=== PATIENT | male | born 1955 | race Caucasian/White ===

== ENCOUNTER 2016-08-13 16:03 | Emergency (ER) | payer MEDICARE, MEDICAID ==
[2016-08-13 16:21] VITALS: BP 140/85
[2016-08-13] MEDS ORDERED: levETIRAcetam IV* 250 MG in NS 0.9% 100 ML* 100 ML IVPB ONE (17:06)
[2016-08-13 17:16] LABS: Hematocrit 38 % (42-52); Hemoglobin 12.5 g/dl (14.0-18.0); Mean Corpuscular HGB Conc 33 g/dl (31-36); Mean Corpuscular Hemoglobin 30 pg (27-31); Mean Corpuscular Volume 89 fL (80-94); Mean Platelet Volume 9 um3 (7.4-10.4); Red Blood Count 4.23 10^6/ul (4.0-5.4); Red Cell Distribution Width 14 % (10.5-15); White Blood Count 6.3 10^3/ul (3.5-10.8)
[2016-08-13 17:27] LABS: Albumin 3.6 g/dL (3.2-5.2); BUN/Creatinine Ratio 12.2 (8-20); Calcium 9.2 mg/dL (8.6-10.3); EGFR African American 62.4 (>60); EGFR Non-African American 48.5 (>60); Globulin 2.6 g/dL (2-4); Magnesium 2.2 mg/dL (1.9-2.7); Potassium 4.5 mmol/L (3.5-5.0); Total Bilirubin 0.5 mg/dL (0.2-1.0); Total Protein 6.2 g/dL (6.4-8.9)
--- NOTE | 2016-08-13 22:39 | ED ---
Abimael Chaudhry Adam, scribed for Aleksandr Black MD on 08/13/16 at 1704 . Neurological HPI - HPI Summary HPI Summary: Pt is a 61 year old male presenting with 3 seizures today. He had 2 focal seizures witnessed by his home health aide, lasting approximately 30 seconds each. EMS witnessed a third seizure and report no post-ictal period. Pt states that he temporarily lost his vision immediately following the seizures but has no visual complaints at this time. Pt has a Hx of seizures and states that he has been taking his medication (Topamax and Keppra) as directed. Last seizure prior to today was in February. Pt denies fever, N/V/D, and recent lack of sleep. - History of Current Complaint Chief Complaint: EDSeizure Stated Complaint: SEIZURE Time Seen by Provider: 08/13/16 16:54 Hx Obtained From: Patient Onset/Duration: Sudden Onset, Started hours ago, Resolved Timing: Intermittent Episodes Lasting: - Seconds Onset Severity: Moderate Current Severity: None Seizure Severity: Moderate Number of Seizures: 3 Aggravating: Unknown Alleviating: Spontanious Resolution Associated Signs and Symptoms: Positive: Visual Changes Related Hx: Seizure - Allergy/Home Medications Allergies/Adverse Reactions: Allergies Allergy/AdvReac Type Severity Reaction Status Date / Time No Known Allergies Allergy Verified 10/05/13 12:30 PMH/Surg Hx/FS Hx/Imm Hx Endocrine/Hematology History: Reports: Hx Anticoagulant Therapy Cardiovascular History: Reports: Hx Angina, Hx Coronary Artery Disease, Hx Hypertension Denies: Hx Pacemaker/ICD History: Reports: Other Problems/Disorders - Frequent urination, undiagnosed. Musculoskeletal History: Reports: Other Musculoskeletal History - Left knee surgery. Sensory History: Reports: Hx Contacts or Glasses Denies: Hx Hearing Aid Opthamlomology History: Reports: Hx Contacts or Glasses Neurological History: Reports: Hx Seizures Psychiatric History: Reports: Hx Depression, Hx Suicide Attempt Denies: Hx Panic Disorder - Surgical History Surgery Procedure, Year, and Place: LEFT ACL REPAIR Infectious Disease History: No Infectious Disease History: Denies: Hx Clostridium Difficile, Hx Hepatitis, Hx Human Immunodeficiency Virus (HIV), Hx of Known/Suspected MRSA, Hx Shingles, Hx Tuberculosis, Hx Known/ Suspected VRE, Hx Known/Suspected VRSA, History Other Infectious Disease, Traveled Outside the [place] in Last 30 Days - Family History Known Family History: Positive: Unknown - Per pt - Social History Occupation: Disabled Lives: With Family Alcohol Use: None Hx Substance Use: No Substance Use Type: Reports: None Hx Tobacco Use: No Smoking Status (MU): Never Smoked Tobacco Have You Smoked in the Last Year: No Review of Systems Positive: Other - Temporary loss of vision after seizures Neurological: Other - Seizures All Other Systems Reviewed And Are Negative: Yes Physical Exam - Summary Physical Exam Summary: General: Comfortable, pleasant, alert HEENT: Moist mucosa, VIOLETA, EOMI. Neck: soft, supple, no adenopathy, no edema Heart: S1, S2, RRR, no murmurs, rubs, or gallops Lungs: Clear to auscultation, breathing comfortable, no wheezes or rales Abdominal: Soft, flat, nontender Extremities: No edema, no calf tenderness Neuro: Disoriented to date but his states that this is his baseline. No slurred speech. No neglect. CN 3-12 intact. Negative pronator drift in all four extremities. Psych: Logical, coherent Triage Information Reviewed: Yes Vital Signs On Initial Exam: Initial Vitals Temp Pulse Resp BP Pulse Ox 97.6 F 56 20 140/85 97 08/13/16 16:15 08/13/16 16:15 08/13/16 16:15 08/13/16 16:15 08/13/16 16:15 Vital Signs Reviewed: Yes Diagnostics - Vital Signs Vital Signs Temp Pulse Resp BP Pulse Ox 08/13/16 16:15 97.6 F 56 20 140/85 97 - Laboratory Lab Results: Lab Results 08/13/16 08/13/16 08/13/16 Range/Units 17:00 17:00 17:00 WBC 6.3 (3.5-10.8) 10^3/ul RBC 4.23 (4.0-5.4) 10^6/ul Hgb 12.5 L (14.0-18.0) g/dl Hct 38 L (42-52) % MCV 89 (80-94) fL MCH 30 (27-31) pg MCHC 33 (31-36) g/dl RDW 14 (10.5-15) % Plt Count 158 (150-450) 10^3/ul MPV 9 (7.4-10.4) um3 Neut % (Auto) 46.8 (38-83) % Lymph % (Auto) 38.3 (25-47) % [place] % (Auto) 11.1 H (1-9) % Eos % (Auto) 3.7 (0-6) % Baso % (Auto) 0.1 (0-2) % Absolute Neuts (auto) 2.9 (1.5-7.7) 10^3/ul Absolute Lymphs (auto) 2.4 (1.0-4.8) 10^3/ul Absolute Monos (auto) 0.7 (0-0.8) 10^3/ul Absolute Eos (auto) 0.2 (0-0.6) 10^3/ul Absolute Basos (auto) 0 (0-0.2) 10^3/ul Absolute Nucleated RBC 0.01 10^3/ul Nucleated RBC % 0.1 Sodium 140 (133-145) mmol/L Potassium 4.5 (3.5-5.0) mmol/L Chloride 112 H (101-111) mmol/L Carbon Dioxide 25 (22-32) mmol/L Anion Gap 3 (2-11) mmol/L BUN 18 (6-24) mg/dL Creatinine 1.48 H (0.67-1.17) mg/dL Est GFR ( Amer) 62.4 (>60) Est GFR (Non-Af Amer) 48.5 (>60) BUN/Creatinine Ratio 12.2 (8-20) Glucose 96 (70-100) mg/dL Lactic Acid 0.7 (0.5-2.0) mmol/L Calcium 9.2 (8.6-10.3) mg/dL Magnesium 2.2 (1.9-2.7) mg/dL Total Bilirubin 0.50 (0.2-1.0) mg/dL AST 12 L (13-39) U/L ALT 9 (7-52) U/L Alkaline Phosphatase 68 (34-104) U/L Total Protein 6.2 L (6.4-8.9) g/dL Albumin 3.6 (3.2-5.2) g/dL Globulin 2.6 (2-4) g/dL Albumin/Globulin Ratio 1.4 (1-3) Result Diagrams: 08/13/16 17:00 08/13/16 17:00 Lab Statement: Any lab studies that have been ordered have been reviewed, and results considered in the medical decision making process. Course/Dx - Course Assessment/Plan: Longstanding Hx of seizures, compliant with medications, followed by [facility]. No obvious reason for this to be triggered as there are no signs of sepsis or severe infection. He is doing well now. his work -up is totally benign for electrolyte abnormalities or sepsis. We will have him increase his Keppra dosage to 750 2x a day. - Diagnoses Provider Diagnoses: Seizure Discharge - Discharge Plan Condition: Good Disposition: HOME Patient Education Materials: Epilepsy (ED) Referrals: Luigi Pillai MD [Primary Care Provider] - Additional Instructions: follow up with your neurologist at the [facility] tomorrow. The documentation as recorded by the Abimael heart Adam accurately reflects the service I personally performed and the decisions made by , Aleksandr Black MD.
== END 2016-08-13 18:36 | disposition home or self-care (01) ==
LOC: ED 16:03
DX: R56.9 Unspecified convulsions (principal); Z79.01 Long term (current) use of anticoagulants
CPT/HCPCS: 36415; 80053; 80177; 83605; 83735; 85025; 99282

== ENCOUNTER 2016-08-15 13:30 | Emergency (ER) | payer MEDICARE, MEDICAID ==
[2016-08-15 13:50] LABS: Hematocrit 39 % (42-52); Hemoglobin 12.9 g/dl (14.0-18.0); Mean Corpuscular HGB Conc 33 g/dl (31-36); Mean Corpuscular Hemoglobin 29 pg (27-31); Mean Corpuscular Volume 89 fL (80-94); Mean Platelet Volume 8 um3 (7.4-10.4); Red Blood Count 4.39 10^6/ul (4.0-5.4); Red Cell Distribution Width 13 % (10.5-15); White Blood Count 6.2 10^3/ul (3.5-10.8)
--- NOTE | 2016-08-15 13:52 | RAD ---
INDICATION: Neurologic changes, code marsh. COMPARISON: Comparison is made with a prior CT of the brain from October 05, 2013. TECHNIQUE: Contiguous axial sections of the brain were obtained from the skull base to the vertex without contrast. FINDINGS: The ventricles, cisterns and sulci are enlarged consistent with age-related atrophy. There are old lacunar infarcts present in the right periventricular white matter and lentiform nucleus. There is also an old lacunar infarct within the thalamus on the left side. These are unchanged from the prior exam. In addition there are multiple focal areas of decreased attenuation present in the subcortical and periventricular white matter most consistent with chronic small vessel ischemic changes. No other focal abnormality or mass effect is seen. There is no evidence for hemorrhage. No significant focal osseous abnormality is seen. The visualized portion of the paranasal sinuses and mastoid air cells appear clear. The results of this exam were called to the referring clinician at 1341 hours. IMPRESSION: 1. NO EVIDENCE FOR GROSS ACUTE INFARCT, MASS EFFECT OR HEMORRHAGE. 2. MULTIPLE OLD LACUNAR INFARCTS AND FINDINGS MOST CONSISTENT WITH MODERATE CHRONIC SMALL VESSEL ISCHEMIC CHANGES.
[2016-08-15 14:04] LABS: Albumin 3.6 g/dL (3.2-5.2); BUN/Creatinine Ratio 15.9 (8-20); EGFR African American 60.9 (>60); EGFR Non-African American 47.4 (>60); Globulin 2.7 g/dL (2-4); HDL Cholesterol 35.4 mg/dL; Potassium 4.5 mmol/L (3.5-5.0); Total Bilirubin 0.6 mg/dL (0.2-1.0); Total Protein 6.3 g/dL (6.4-8.9)
[2016-08-15 14:06] LABS: Troponin I 0.01 ng/mL (<0.04)
--- NOTE | 2016-08-15 14:37 | RAD ---
INDICATION: Code marsh. COMPARISON: Comparison is made with a prior chest x-ray study from November 22, 2013. TECHNIQUE: A portable view of the chest was obtained. FINDINGS: Cardiac and mediastinal contours appear to be within normal limits. The lungs are clear. No pleural effusion is seen. IMPRESSION: NO EVIDENCE FOR ACUTE DISEASE.
[2016-08-15 17:01] VITALS: BP 120/72
--- NOTE | 2016-08-15 20:27 | ED ---
Douglas Chaudhry Rebecca, scribed for Aleksandr Black MD on 08/15/16 at 1340 . Neurological HPI - HPI Summary HPI Summary: Pt is a 61 y/o M BIBA to r/o CVA. Per EMS, pt's family reported R-sided weakness , slurred speech and facial droop. Sx began suddenly at 1245 today and have been constant since onset. Sx aggravated and alleviated by nothing. Level 5 caveat due to AMS. Past medical records reveal admission in July 2013. PMHx seizures, CVA. At one point was seeing Dr. Estrella and was on Plavix for secondary prevention. Hx mentions hemorrhagic stroke, and R-sided weakness and received TPA in Aug 2010. - History of Current Complaint Stated Complaint: CODE WATKINS Time Seen by Provider: 08/15/16 13:31 Hx Obtained From: EMS, Medical Records Hx From Patient Unobtainable Due To: Altered Mental Status Onset/Duration: Sudden Onset, Started minutes ago - 45 minutes ago Timing: Constant Aggravating: Nothing Alleviating: Nothing Associated Signs and Symptoms: Positive: Weakness - R-sided weakness, facial droop, Impaired Speech - Allergy/Home Medications Allergies/Adverse Reactions: Allergies Allergy/AdvReac Type Severity Reaction Status Date / Time No Known Allergies Allergy Verified 10/05/13 12:30 Home Medications: Home Medications Atorvastatin* [Lipitor*] 20 mg PO BID 08/15/16 [History Confirmed 08/15/16] DULoxetine DR CAP* [Cymbalta CAP*] 20 mg PO DAILY 08/15/16 [History Confirmed ] Gabapentin CAP(*) [Neurontin 100 mg CAP(*)] 100 mg PO SEE INSTRUCTIONS 08/15/16 [History Confirmed 08/15/16] Levetiracetam [Keppra 500] 1,000 mg PO BID 08/15/16 [History Confirmed 08/15/16] PMH/Surg Hx/FS Hx/Imm Hx Endocrine/Hematology History: Reports: Hx Anticoagulant Therapy Cardiovascular History: Reports: Hx Angina, Hx Coronary Artery Disease, Hx Hypertension Denies: Hx Pacemaker/ICD History: Reports: Other Problems/Disorders - Frequent urination, undiagnosed. Musculoskeletal History: Reports: Other Musculoskeletal History - Left knee surgery. Sensory History: Reports: Hx Contacts or Glasses Denies: Hx Hearing Aid Opthamlomology History: Reports: Hx Contacts or Glasses Neurological History: Reports: Hx Seizures Psychiatric History: Reports: Hx Depression, Hx Suicide Attempt Denies: Hx Panic Disorder - Surgical History Surgery Procedure, Year, and Place: LEFT ACL REPAIR Infectious Disease History: Denies: Hx Clostridium Difficile, Hx Hepatitis, Hx Human Immunodeficiency Virus (HIV), Hx of Known/Suspected MRSA, Hx Shingles, Hx Tuberculosis, Hx Known/ Suspected VRE, Hx Known/Suspected VRSA, History Other Infectious Disease - Family History Known Family History: Positive: Unknown - Unobtainable from pt - Social History Alcohol Use: None Hx Substance Use: No Substance Use Type: Reports: None Hx Tobacco Use: No Smoking Status (MU): Never Smoked Tobacco Have You Smoked in the Last Year: No Review of Systems - ROS Summary Review of Systems Summary: Level 5 caveat, ROS unobtainable due to AMS. Neurological: Other - Facial droop Positive: Weakness - R-sided, Slurred Speech All Other Systems Reviewed And Are Negative: No Physical Exam - Summary Physical Exam Summary: General: Comfortable, pleasant, alert HEENT: PERRL, R-eyelid droop, R-facial droop. No signs of trauma or abrasion. Brisk intact gag reflex. Neck: Soft, supple, no adenopathy, no edema Heart: No murmurs, rubs, or gallops, distant heart sounds Lungs: Clear to auscultation, breathing comfortable, no wheezes or rales, no gargled respirations Abdominal: Soft, flat, nontender Extremities: No edema, no calf tenderness Neuro: R-sided neglect, with smile he is slow to repond, but shows more strength on the left. Right upper and lower pronator drift. Sensation loss on the R side.Loss of pinprick on the right. Psych: Mentation is slow to respond, remains alert Triage Information Reviewed: Yes Vital Signs On Initial Exam: Initial Vitals Temp Pulse Resp BP Pulse Ox 99.1 F 52 10 144/77 97 08/15/16 13:50 08/15/16 13:50 08/15/16 13:50 08/15/16 13:50 08/15/16 13:50 Vital Signs Reviewed: Yes Diagnostics - Vital Signs Vital Signs Temp Pulse Resp BP Pulse Ox 08/15/16 17:00 57 15 120/72 08/15/16 16:42 56 15 120/74 99 08/15/16 16:30 55 19 145/77 99 08/15/16 16:00 59 14 133/81 99 08/15/16 15:30 57 15 129/77 100 08/15/16 15:00 52 11 136/78 99 08/15/16 14:35 51 10 139/82 99 08/15/16 14:06 51 8 98 08/15/16 13:50 99.1 F 52 10 144/77 97 - Laboratory Lab Results: Lab Results 08/15/16 08/15/16 08/15/16 Range/Units 13:40 13:40 13:40 WBC 6.2 (3.5-10.8) 10^3/ul RBC 4.39 (4.0-5.4) 10^6/ul Hgb 12.9 L (14.0-18.0) g/dl Hct 39 L (42-52) % MCV 89 (80-94) fL MCH 29 (27-31) pg MCHC 33 (31-36) g/dl RDW 13 (10.5-15) % Plt Count 146 L (150-450) 10^3/ul MPV 8 (7.4-10.4) um3 Neut % (Auto) 48.5 (38-83) % Lymph % (Auto) 34.5 (25-47) % Cameron % (Auto) 9.5 H (1-9) % Eos % (Auto) 6.1 H (0-6) % Baso % (Auto) 1.4 (0-2) % Absolute Neuts (auto) 3.0 (1.5-7.7) 10^3/ul Absolute Lymphs (auto) 2.1 (1.0-4.8) 10^3/ul Absolute Monos (auto) 0.6 (0-0.8) 10^3/ul Absolute Eos (auto) 0.4 (0-0.6) 10^3/ul Absolute Basos (auto) 0.1 (0-0.2) 10^3/ul Absolute Nucleated RBC 0 10^3/ul Nucleated RBC % 0 INR (Anticoag Therapy) 0.92 (0.89-1.11) APTT 32.0 (26.0-36.3) seconds Sodium 139 (133-145) mmol/L Potassium 4.5 (3.5-5.0) mmol/L Chloride 111 (101-111) mmol/L Carbon Dioxide 25 (22-32) mmol/L Anion Gap 3 (2-11) mmol/L BUN 24 (6-24) mg/dL Creatinine 1.51 H (0.67-1.17) mg/dL Est GFR ( Amer) 60.9 (>60) Est GFR (Non-Af Amer) 47.4 (>60) BUN/Creatinine Ratio 15.9 (8-20) Glucose 95 (70-100) mg/dL Lactic Acid (0.5-2.0) mmol/L Calcium 9.0 (8.6-10.3) mg/dL Total Bilirubin 0.60 (0.2-1.0) mg/dL AST 14 (13-39) U/L ALT 11 (7-52) U/L Alkaline Phosphatase 67 (34-104) U/L Troponin I 0.01 (<0.04) ng/mL Total Protein 6.3 L (6.4-8.9) g/dL Albumin 3.6 (3.2-5.2) g/dL Globulin 2.7 (2-4) g/dL Albumin/Globulin Ratio 1.3 (1-3) Triglycerides 71 mg/dL Cholesterol 125 mg/dL LDL Cholesterol 75 mg/dL HDL Cholesterol 35.4 mg/dL Blood Type Antibody Screen 08/15/16 08/15/16 Range/Units 13:40 13:40 WBC (3.5-10.8) 10^3/ul RBC (4.0-5.4) 10^6/ul Hgb (14.0-18.0) g/dl Hct (42-52) % MCV (80-94) fL MCH (27-31) pg MCHC (31-36) g/dl RDW (10.5-15) % Plt Count (150-450) 10^3/ul MPV (7.4-10.4) um3 Neut % (Auto) (38-83) % Lymph % (Auto) (25-47) % Cameron % (Auto) (1-9) % Eos % (Auto) (0-6) % Baso % (Auto) (0-2) % Absolute Neuts (auto) (1.5-7.7) 10^3/ul Absolute Lymphs (auto) (1.0-4.8) 10^3/ul Absolute Monos (auto) (0-0.8) 10^3/ul Absolute Eos (auto) (0-0.6) 10^3/ul Absolute Basos (auto) (0-0.2) 10^3/ul Absolute Nucleated RBC 10^3/ul Nucleated RBC % INR (Anticoag Therapy) (0.89-1.11) APTT (26.0-36.3) seconds Sodium (133-145) mmol/L Potassium (3.5-5.0) mmol/L Chloride (101-111) mmol/L Carbon Dioxide (22-32) mmol/L Anion Gap (2-11) mmol/L BUN (6-24) mg/dL Creatinine (0.67-1.17) mg/dL Est GFR ( Amer) (>60) Est GFR (Non-Af Amer) (>60) BUN/Creatinine Ratio (8-20) Glucose (70-100) mg/dL Lactic Acid 0.6 (0.5-2.0) mmol/L Calcium (8.6-10.3) mg/dL Total Bilirubin (0.2-1.0) mg/dL AST (13-39) U/L ALT (7-52) U/L Alkaline Phosphatase (34-104) U/L Troponin I (<0.04) ng/mL Total Protein (6.4-8.9) g/dL Albumin (3.2-5.2) g/dL Globulin (2-4) g/dL Albumin/Globulin Ratio (1-3) Triglycerides mg/dL Cholesterol mg/dL LDL Cholesterol mg/dL HDL Cholesterol mg/dL Blood Type O Positive Antibody Screen Negative Result Diagrams: 08/15/16 13:40 08/15/16 13:40 Lab Statement: Any lab studies that have been ordered have been reviewed, and results considered in the medical decision making process. - Radiology CXR Radiology Interpretation Completed By: Radiologist - NO EVIDENCE FOR ACUTE DISEASE - CT Brain CT CT Interpretation Completed By: Radiologist - EKG 1350 Cardiac Rate: Bradycardia - [address] Segment: Non-Specific - T-wave inversions in III Re-Evaluation - Re-Evaluation First Eval Re-Evaluation Time: 16:32 Change: Improved Comment: Much more alert, states he is feeling better. On exam, pronator drift is markedly improved and only slightly present at this point. He is able to puff out his cheeks symetrically. Family reports that Dr. Abraham recommended to lower Keppra dose (currently on 1500 mg per day) and increase Topamax doseage. Course/Dx - Course Assessment/Plan: After a long workup and a long discussion with family and Dr. Abraham this is a similar presentation to prior episodes. According to Dr. Abraham, who spoke to his , the sx were preceded by another seizure. The family and Dr. Abraham apparently wanted to fine tune his medications. Agrees to return for any worsening sx, recurrent episodes. Otherwise, will followup with PCP and neurology at the [facility]. - Differential Dx Differential Diagnoses Neuro: Positive: Coronary Artery Disease, Dysrhythmia, Encephalitis, Headache, Hemorrhage, Hypertension, Hypoglycemia, Hypovolemia, Medication Reaction, Meningitis, Metastatic Disease, Seizure Disorder, Temporal Arteritis, Transient Ischemic Attack - Diagnoses Provider Diagnoses: Transient right leg weakness, Neurological deficit, transient During the Visit The Following Alert/Code Occurred: Code Cox - Physician Notifications Discussed Care of Patient With: Dr. Abraham, neurology, who evaluated at bedside in ED. Debating whether or not TPA can be given. Dr. Abraham has review old records extensively for the past hour and has also spoken to and believes there is a good chance this was a seizure that has resulted in some R-sided deficits. Reveals some of these deficits are chronically presents. At this point will not push TPA. Will d/c pt if he completely resolves. Consistent with prior presentations found. Time Discussed With Above Provider: 13:50 Discharge - Discharge Plan Condition: Fair Disposition: HOME Patient Education Materials: Weakness (ED) Referrals: Luigi Pillai MD [Primary Care Provider] - Additional Instructions: Change the keppra to 500mg twice a day for a total of 1000mg and increase the topomax to two pills twice a day. The documentation as recorded by the Douglas heart Rebecca accurately reflects the service I personally performed and the decisions made by me, Aleksandr Black MD.
--- NOTE | 2016-08-15 20:52 | CONS ---
NEUROLOGY CONSULT: DATE OF CONSULTATION: 08/15/16 REFERRING PHYSICIAN: Dr. Black. PRIMARY CARE PROVIDER: Dr. Pillai of [facility]. CHIEF COMPLAINT: Right-sided weakness, seizures. HISTORY OF PRESENT ILLNESS: Dandy Fay is a 61-year-old right-handed man known to me from prior evaluations in past years who presented to the emergency department initially as a [employer] with the bingo attendant's report that he developed right-sided weakness at 12:45 this morning. I just happened to speak with his after serial examinations and review of extensive medical records and she reports he had a seizure at onset. She stated he was upset because he was being teased by a nephew who was visiting. He then had one of his seizures, which consisted of eyelid deviation or fluttering and tremulousness and unresponsiveness. She said after about 3 minutes he came out of it and was able to speak and had weakness on his right side. In reviewing prior records, he has had multiple episodes of right-sided weakness, at times felt to be psychogenic. In 2010, he presented with right-sided weakness and I gave him tPA. 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 He has "seizures" with normal EEGs done here in [place] and reports from Dr. Syl Estrella's consultation a couple of years ago and Dr. 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 His reports he has been under a lot of stress lately and has an appointment to see a psychiatrist at the [place] system later this month. He has been threatening and irritable to her in recent weeks, if not months. He was hospitalized in [facility] last February by her report in mental health unit and put on Keppra because of repetitive seizures. Between last February and last week when he presented to the emergency room with another one of his seizures, he has not had seizures but they started up again. She is not aware of diagnoses of psychogenic versus epilepsy, but does recall that he was monitored in [facility] some years ago. She said she does not know what the results were. 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 MEDICATIONS AT HOME: Consist of: 1. Venlafaxine, dose unknown. 2. Trazodone 50 mg p.o. q.h.s. 3. Topiramate 150 mg p.o. b.i.d. 4. Simvastatin 40 mg p.o. daily. 5. Lisinopril 10 mg p.o. daily. 6. Plavix 75 mg p.o. daily. 7. Atenolol 12.5 mg p.o. daily. 8. Hydrocodone 5/500 two tablets q.6 hours p.r.n. ALLERGIES: He is listed as having no drug allergies. SOCIAL HISTORY: He is a nonsmoker, nondrinker, disabled [place] vet. No history of drug abuse. REVIEW OF SYSTEMS: From his and the patient is negative for headache, he had a fall a week ago without loss of consciousness. He is chronically unsteady , but ambulates with a cane at home. Again, it is noted in the HPI he has been more irritable lately. As far as she knows, there has been no change in weight. No recent fevers or chills. She states he gets his medications very regularly if she gives them to him. PHYSICAL EXAMINATION: He is morbidly obese. Temperature is 99.1 temporally, blood pressure 144/77, heart rate 50 to 60 and sinus on the monitor. Respiratory rate is 12 to 14 and oxygen saturation is 97% on room air. Neck is supple. Head is atraumatic. Oral mucosa is moist and atraumatic. Neck is thick and I cannot feel carotid pulses. There are no cervical bruits. Heart tones are normal and lungs are clear anterolaterally. Neurologically, pupils react equally from 3 to 2 mm. Visual babb are full to confrontation. Funduscopic exam reveals silver wiring and AV nicking but no hemorrhages. Eye movements are normal. Facial musculature is notable for decreased movement of the right corner of mouth. Volitional movement is pretty strong. Facial sensation is reported as decreased to light touch on the right side. Speech is soft, but clear. Tongue protrudes in the midline and palate rises symmetrically. Hearing is intact bilaterally to tuning fork. Motor exam is inconsistent. At times he does not raise the right arm and leg up to command and at other times he moves it reasonably well such as when I put his oximeter back on his hand. He has resistive strength variably of the right leg and arm, but again it is inconsistent. He has slow movements on the left side, but good strength and no spasticity on any limbs. Reflexes are hypoactive. Plantars are flexor bilaterally. Finger taps are slow bilaterally, but he is able to do them in the right hand as well as the left. He is mentally sluggish but answers questions reasonably well. Language is quite fluent. He is oriented to person, place and time. He does not remember the onset of his symptoms but remembers getting out of bed and he said he felt fine earlier today as best as he can recall. LABORATORY DATA: Includes the CT of the brain which I reviewed and reveals old bilateral lenticulostriate infarctions. A brain MRI from 08/07/13 reviewed and reveals an acute right lenticulostriate and old left basal ganglia infarction. EEG from 08/07/[address] Estrella was a normal EEG including during episodes of left-sided shaking and kicking. Additional laboratory data notable for a normal CBC today other than hemoglobin 12.9 and platelets 146,000, normal INR 0.92 and PTT 32, chemistry profile notable for creatinine 1.5 and otherwise unremarkable chemistry profile. IMPRESSION: My impression is this is probably this is psychogenic, possibly postictal, but I do not think he is having an acute cerebrovascular event and do not recommend tPA. If he does not improve along the lines of a postictal episode, then we may have to bring him in and do some EEG monitoring. Hopefully , with encouragement he will resolve as he has with prior episodes and will be able to be discharged home today. [id number]/[facility] #: [id number] DANA
== END 2016-08-15 17:00 | disposition home or self-care (01) ==
LOC: ED 13:30
DX: R29.818 Other symptoms and signs involving the nervous system (principal); R56.9 Unspecified convulsions; R53.1 Weakness; R41.82 Altered mental status, unspecified; R47.81 Slurred speech
CPT/HCPCS: 36415; 70450; 71010; 80053; 80061; 83605; 84484; 85025; 85610; 85730; 86850; 86900; 86901; 93005; 99285

== ENCOUNTER 2016-09-02 09:49 | Inpatient (IN) | payer MEDICARE, MEDICAID ==
--- NOTE | 2016-09-02 10:11 | RAD ---
Indication: Neurologic changes. CT of the brain was performed without IV contrast. Ventricular structures are midline. No midline shift is noted. Periventricular lucency consistent with chronic ischemic White matter change is noted. There is a wedge-shaped hypodensity in the left posterior parietal lobe. May represent a recent infarct. No midline shift is noted. No intracranial hemorrhage is identified. Mastoid air cells and a straight hypoplastic left mastoid air cells. The remainder of the paranasal sinuses are unremarkable. IMPRESSION: Developing infarct in the left posterior parietal lobe. No hemorrhage is noted. Findings discussed with Dr. Armenta at 10:08 AM.
[2016-09-02 10:23] LABS: Hematocrit 37 % (42-52); Hemoglobin 12.2 g/dl (14.0-18.0); Mean Corpuscular HGB Conc 34 g/dl (31-36); Mean Corpuscular Hemoglobin 30 pg (27-31); Mean Corpuscular Volume 90 fL (80-94); Mean Platelet Volume 9 um3 (7.4-10.4); Red Blood Count 4.07 10^6/ul (4.0-5.4); Red Cell Distribution Width 14 % (10.5-15); White Blood Count 7.2 10^3/ul (3.5-10.8)
--- NOTE | 2016-09-02 10:27 | RAD ---
INDICATION: Altered mental status COMPARISON: Chest x-ray August 15, 2016 TECHNIQUE: Single AP portable view of the chest was obtained. FINDINGS: Image quality is compromised due to the relative inferiority of a portable chest x-ray. The heart and mediastinum exhibit normal size and contour. There appears to be poor inspiratory effort relative to the previous chest x-ray. The lungs are grossly clear. There is no evidence of a large pleural effusion. Visualized bones are normal for the patient's age. IMPRESSION: No radiographic evidence for acute cardiopulmonary abnormality on this portable chest x-ray.
[2016-09-02 10:51] LABS: Albumin 3.6 g/dL (3.2-5.2); BUN/Creatinine Ratio 11.4 (8-20); EGFR African American 54.2 (>60); EGFR Non-African American 42.2 (>60); Globulin 2.6 g/dL (2-4); HDL Cholesterol 35.1 mg/dL; Potassium 4.5 mmol/L (3.5-5.0); Total Bilirubin 0.6 mg/dL (0.2-1.0); Total Protein 6.2 g/dL (6.4-8.9)
[2016-09-02] MEDS ORDERED: Meclizine TAB* 12.5 MG PO PRN (13:58)
[2016-09-02] MEDS ORDERED: Senna/Docusate (NF) TAB PO PRN (13:58)
[2016-09-02] MEDS ORDERED: Senna TAB PO PRN (14:07)
[2016-09-02] MEDS ORDERED: Docusate CAP* 100 MG PO PRN (14:07)
[2016-09-02 14:57] LABS: Urine Bilirubin Negative (Negative); Urine Glucose Negative (Negative); Urine Nitrite Negative (Negative)
--- NOTE | 2016-09-02 14:58 | RAD ---
HISTORY: Stroke COMPARISONS: August 06, 2013 TECHNIQUE: Multiple transverse and longitudinal ultrasound images were obtained of the carotid and vertebral arteries bilaterally, using grayscale, color Doppler, and spectral Doppler imaging. FINDINGS: Measurement of carotid stenosis is based on flow velocity parameters that correlate the residual internal carotid artery diameter with [place] Symptomatic Carotid Endarterectomy Trial (NASCET)-based stenosis levels. RIGHT: Intima: There is mild diffuse intimal thickening. Velocities: Right internal carotid artery maximum peak systolic velocity: 68 cm/s Right common carotid artery maximum peak systolic velocity: 95 cm/s Right internal carotid artery/common carotid artery ratio: 0.7 Waveforms: There is no spectral broadening. Right Vertebral: The right vertebral artery flow is antegrade. LEFT: Intima: There is mild diffuse intimal thickening. Velocities: Left internal carotid artery maximum peak systolic velocity: 94 cm/s Left common carotid artery maximum peak systolic velocity: 88 cm/s Left internal carotid artery/common carotid artery ratio: 0.6 Waveforms: There is no spectral broadening. Left Vertebral: The left vertebral artery flow is antegrade. OTHER FINDINGS: There is a heterogeneously hypoechoic lymph node at level 2 on the right measuring 1.4 x 1.1 x 2.1 cm in size IMPRESSION: 1. NO HEMODYNAMICALLY SIGNIFICANT STENOSIS OF THE RIGHT INTERNAL CAROTID ARTERY BY FLOW VELOCITY MEASUREMENTS. THIS CORRESPONDS TO A LUMINAL DIAMETER OF LESS THAN 50% STENOSIS BY NASCET CRITERIA. 2. NO HEMODYNAMICALLY SIGNIFICANT STENOSIS OF THE LEFT INTERNAL CAROTID ARTERY BY FLOW VELOCITY MEASUREMENTS. THIS CORRESPONDS TO A LUMINAL DIAMETER OF LESS THAN 50% STENOSIS BY NASCET CRITERIA. 3. RIGHT CERVICAL LYMPHADENOPATHY. RECOMMEND CORRELATION WITH DEDICATED IMAGING OF THE NECK CPT II Codes: 7025F
--- NOTE | 2016-09-02 16:19 | RAD ---
HISTORY: Stroke COMPARISONS: Head CT dated September 02, 2016, MRI dated August 07, 2013 TECHNIQUE: The following sequences were obtained of the head: Sagittal T1-weighted images, axial T2-weighted images, axial FLAIR images, axial susceptibility weighted images, axial T1-weighted images. Additionally, axial diffusion-weighted images were obtained with calculated apparent diffusion coefficients. FINDINGS: HEMORRHAGE/INFARCT: There is restricted diffusion consistent with subacute nonhemorrhagic infarct involving the left posterior temporal lobe and inferior parietal lobe and posterior insula. This corresponds to the CT findings. There is no hemorrhage. Elsewhere, there is no hemorrhage or acute infarct. MASSES/SHIFT: There is no mass or shift. EXTRA-AXIAL SPACES/MENINGES: There are no extra-axial fluid collections. SULCI AND VENTRICLES: The sulci and ventricles are normal in size and position for the patient's stated age. CEREBRUM: As noted above, there is elevated T2/FLAIR signal corresponding to an area of restricted diffusion and subacute nonhemorrhagic infarct of the left posterior temporal lobe and anterior parietal lobe, and insula. There is encephalomalacia consistent with remote infarct of the right basal ganglia, and of the left frontal periventricular white matter, and left periatrial white matter. There is elevated T2/FLAIR signal in the periventricular and subcortical white matter. BRAINSTEM: There is minimal elevated T2/FLAIR signal within the pontine white matter. CEREBELLUM: There are no focal parenchymal abnormalities. The cerebellar tonsils are normal in size and position. SELLA: The sella is normal. PINEAL: The pineal region is clear. CP ANGLE/TEMPORAL BONES: The labyrinthine structures are grossly normal. VESSELS: Normal flow-voids are noted within the visualized vertebral vasculature. DIFFUSION ABNORMALITIES: As noted above, there is restricted diffusion within the left inferior parietal lobe, posterior temporal lobe, and posterior insula PARANASAL SINUSES/MASTOIDS: The paranasal sinuses are clear. ORBITS: The orbits are unremarkable. BONES AND SOFT TISSUE: No bone or soft tissue abnormalities are noted. OTHER: None IMPRESSION: 1. RESTRICTED DIFFUSION CONSISTENT WITH SUBACUTE NONHEMORRHAGIC INFARCT OF THE LEFT POSTERIOR TEMPORAL LOBE, INFERIOR PARIETAL LOBE, AND POSTERIOR INSULA. 2. DIFFUSE CHRONIC SMALL VESSEL ISCHEMIC CHANGES WITH MULTIFOCAL ENCEPHALOMALACIA OF THE CEREBRAL HEMISPHERES BILATERALLY CONSISTENT WITH REMOTE INFARCTS.
--- NOTE | 2016-09-02 17:24 | PN ---
Hospitalist Progress Note HOSPITALIST ADDENDUM Case reviewed and d/w Sacha BLISS. Mr. Fay is a 70yo M with PMH of CVA, depression, seizures, HTN, who presented to ED with c/o confusion, speech changes and possible worsening right hemiparesis. CT brain reviewed - patient has a developing CVA on the left parietal lobe. Agree with current management. Awaiting Neurology consultation.
[2016-09-02] MEDS: Atorvastatin* 40 MG TAB PO SCH (17:44)
[2016-09-02] MEDS: Gabapentin CAP(*) 100 MG PO SCH (17:45)
--- NOTE | 2016-09-02 18:09 | ED ---
Erick Chaudhry Billy, scribed for Ranulfo Armenta MD on 09/02/16 at 1022 . Neurological HPI - HPI Summary HPI Summary: Patient is a 61 y/o male who presents to [facility] with an expressive aphasia since this morning. EMS reports he was oriented to person on site, but that he exhibited decreased responsiveness in comparison to baseline. He reports a headache. Per EMS, pt has a Hx of seizures. He has had multiple TIAs and 5 CVA s in the past with the last one being in 2013. He fell on his head yesterday afternoon. - History of Current Complaint Chief Complaint: EDNeurologicalDeficit Stated Complaint: AMS Time Seen by Provider: 09/02/16 09:53 Hx Obtained From: Patient, EMS Onset/Duration: Gradual Onset, Started hours ago Onset Severity: Moderate Current Severity: Moderate Character: Impaired Speech, Responsiveness - Decreased compared to baseline. Aggravating: Unknown Alleviating: Unknown Associated Signs and Symptoms: Positive: Headache, Impaired Speech - Allergy/Home Medications Allergies/Adverse Reactions: Allergies Allergy/AdvReac Type Severity Reaction Status Date / Time No Known Allergies Allergy Verified 10/05/13 12:30 Home Medications: Home Medications Gabapentin CAP(*) [Neurontin 100 mg CAP(*)] 200 mg PO QPM 09/02/16 [History Confirmed 09/02/16] PMH/Surg Hx/FS Hx/Imm Hx Endocrine/Hematology History: Reports: Hx Anticoagulant Therapy Cardiovascular History: Reports: Hx Angina, Hx Coronary Artery Disease, Hx Hypertension Denies: Hx Pacemaker/ICD History: Reports: Other Problems/Disorders - Frequent urination, undiagnosed. Musculoskeletal History: Reports: Other Musculoskeletal History - Left knee surgery. Sensory History: Reports: Hx Contacts or Glasses Denies: Hx Hearing Aid Opthamlomology History: Reports: Hx Contacts or Glasses Neurological History: Reports: Hx Seizures Psychiatric History: Reports: Hx Depression, Hx Suicide Attempt Denies: Hx Panic Disorder - Surgical History Surgery Procedure, Year, and Place: LEFT ACL REPAIR Infectious Disease History: Denies: Hx Clostridium Difficile, Hx Hepatitis, Hx Human Immunodeficiency Virus (HIV), Hx of Known/Suspected MRSA, Hx Shingles, Hx Tuberculosis, Hx Known/ Suspected VRE, Hx Known/Suspected VRSA, History Other Infectious Disease, Traveled Outside the [place] in Last 30 Days - Family History Known Family History: Positive: Unknown - Unobtainable from pt. - Social History Alcohol Use: None Hx Substance Use: No Substance Use Type: Reports: None Hx Tobacco Use: No Smoking Status (MU): Never Smoked Tobacco Have You Smoked in the Last Year: No Review of Systems Constitutional: Negative Eyes: Negative ENT: Negative Cardiovascular: Negative Respiratory: Negative Gastrointestinal: Negative Genitourinary: Negative Musculoskeletal: Negative Skin: Negative Neurological: Other - Decreased responsiveness. Expressive aphasia. Positive: Headache Psychological: Normal All Other Systems Reviewed And Are Negative: Yes Physical Exam Triage Information Reviewed: Yes Vital Signs On Initial Exam: Initial Vital Signs Temp 98.2 F 09/02/16 10:17 Pulse 52 09/02/16 10:17 Resp 18 09/02/16 10:17 BP 157/83 09/02/16 10:17 Pulse Ox 100 09/02/16 10:17 Vital Signs Reviewed: Yes Appearance: Positive: Well-Appearing, No Pain Distress, Obese Skin: Positive: Warm, Skin Color Reflects Adequate Perfusion, Dry Head/Face: Positive: Normal Head/Face Inspection Eyes: Positive: Normal ENT: Positive: Normal ENT inspection Neck: Positive: Supple, Nontender Respiratory/Lung Sounds: Positive: Clear to Auscultation, Breath Sounds Present Cardiovascular: Positive: RRR Abdomen Description: Positive: Nontender, Soft Bowel Sounds: Positive: Present Musculoskeletal: Positive: Normal Neurological: Positive: Other - See LIANET stroke scale. Diagnostics - Vital Signs Vital Signs Temp Pulse Resp BP Pulse Ox 09/02/16 10:39 99 09/02/16 10:30 59 11 140/79 100 09/02/16 10:17 98.2 F 52 18 157/83 100 09/02/16 10:03 13 09/02/16 10:01 157/83 - Laboratory Lab Results: Lab Results 09/02/16 09/02/16 09/02/16 Range/Units 10:11 10:15 10:15 WBC 7.2 (3.5-10.8) 10^3/ul RBC 4.07 (4.0-5.4) 10^6/ul Hgb 12.2 L (14.0-18.0) g/dl Hct 37 L (42-52) % MCV 90 (80-94) fL MCH 30 (27-31) pg MCHC 34 (31-36) g/dl RDW 14 (10.5-15) % Plt Count 151 (150-450) 10^3/ul MPV 9 (7.4-10.4) um3 Neut % (Auto) 56.9 (38-83) % Lymph % (Auto) 28.8 (25-47) % [place] % (Auto) 8.7 (1-9) % Eos % (Auto) 4.3 (0-6) % Baso % (Auto) 1.3 (0-2) % Absolute Neuts (auto) 4.1 (1.5-7.7) 10^3/ul Absolute Lymphs (auto) 2.1 (1.0-4.8) 10^3/ul Absolute Monos (auto) 0.6 (0-0.8) 10^3/ul Absolute Eos (auto) 0.3 (0-0.6) 10^3/ul Absolute Basos (auto) 0.1 (0-0.2) 10^3/ul Absolute Nucleated RBC 0 10^3/ul Nucleated RBC % 0.1 INR (Anticoag Therapy) 0.93 (0.89-1.11) APTT 33.3 (26.0-36.3) seconds Sodium (133-145) mmol/L Potassium (3.5-5.0) mmol/L Chloride (101-111) mmol/L Carbon Dioxide (22-32) mmol/L Anion Gap (2-11) mmol/L BUN (6-24) mg/dL Creatinine (0.67-1.17) mg/dL Est GFR ( Amer) (>60) Est GFR (Non-Af Amer) (>60) BUN/Creatinine Ratio (8-20) Glucose (70-100) mg/dL POC Glucose (mg/dL) 103 (74-106) mg/dL Lactic Acid (0.5-2.0) mmol/L Calcium (8.6-10.3) mg/dL Total Bilirubin (0.2-1.0) mg/dL AST (13-39) U/L ALT (7-52) U/L Alkaline Phosphatase (34-104) U/L Troponin I (<0.04) ng/mL Total Protein (6.4-8.9) g/dL Albumin (3.2-5.2) g/dL Globulin (2-4) g/dL Albumin/Globulin Ratio (1-3) Triglycerides mg/dL Cholesterol mg/dL LDL Cholesterol mg/dL HDL Cholesterol mg/dL 09/02/16 09/02/16 Range/Units 10:15 10:15 WBC (3.5-10.8) 10^3/ul RBC (4.0-5.4) 10^6/ul Hgb (14.0-18.0) g/dl Hct (42-52) % MCV (80-94) fL MCH (27-31) pg MCHC (31-36) g/dl RDW (10.5-15) % Plt Count (150-450) 10^3/ul MPV (7.4-10.4) um3 Neut % (Auto) (38-83) % Lymph % (Auto) (25-47) % [place] % (Auto) (1-9) % Eos % (Auto) (0-6) % Baso % (Auto) (0-2) % Absolute Neuts (auto) (1.5-7.7) 10^3/ul Absolute Lymphs (auto) (1.0-4.8) 10^3/ul Absolute Monos (auto) (0-0.8) 10^3/ul Absolute Eos (auto) (0-0.6) 10^3/ul Absolute Basos (auto) (0-0.2) 10^3/ul Absolute Nucleated RBC 10^3/ul Nucleated RBC % INR (Anticoag Therapy) (0.89-1.11) APTT (26.0-36.3) seconds Sodium 141 (133-145) mmol/L Potassium 4.5 (3.5-5.0) mmol/L Chloride 114 H (101-111) mmol/L Carbon Dioxide 24 (22-32) mmol/L Anion Gap 3 (2-11) mmol/L BUN 19 (6-24) mg/dL Creatinine 1.67 H (0.67-1.17) mg/dL Est GFR ( Amer) 54.2 (>60) Est GFR (Non-Af Amer) 42.2 (>60) BUN/Creatinine Ratio 11.4 (8-20) Glucose 94 (70-100) mg/dL POC Glucose (mg/dL) (74-106) mg/dL Lactic Acid 0.7 (0.5-2.0) mmol/L Calcium 9.0 (8.6-10.3) mg/dL Total Bilirubin 0.60 (0.2-1.0) mg/dL AST 14 (13-39) U/L ALT 9 (7-52) U/L Alkaline Phosphatase 73 (34-104) U/L Troponin I 0.00 (<0.04) ng/mL Total Protein 6.2 L (6.4-8.9) g/dL Albumin 3.6 (3.2-5.2) g/dL Globulin 2.6 (2-4) g/dL Albumin/Globulin Ratio 1.4 (1-3) Triglycerides 61 mg/dL Cholesterol 116 mg/dL LDL Cholesterol 69 mg/dL HDL Cholesterol 35.1 mg/dL Result Diagrams: 09/02/16 10:15 09/02/16 10:15 Lab Statement: Any lab studies that have been ordered have been reviewed, and results considered in the medical decision making process. - Radiology CXR Radiology Interpretation Completed By: Radiologist - IMPRESSION: No radiographic evidence for acute cardiopulmonary abnormality on this portable chest x-ray. - CT BRAIN CT Interpretation Completed By: Radiologist - IMPRESSION: Developing infarct in the left posterior parietal lobe. No hemorrhage is noted. - EKG 0959 Cardiac Rate: Bradycardia - 54 bpm EKG Interpretation: sinus bradycardia 54 bpm, no ST elevation NIH Scale - NIH Scale Level of Consciousness: Responds to Minor Stimulation Ask Patient the Month and His/Her Age: Neither Correct/Aphasic Ask Pt to Open/Close Eyes and Lcpc/Release Non-Paretic Hand: Both Correctly Best Gaze (Only Horizontal Eye Movement): Normal Visual Field Testing: No Visual Loss Facial Paresis-Pt to Smile & Close Eyes or Grimace Symmetry: Normal/Symmetrical Motor Function - Right Arm: No Drift-Holds 10 Seconds Motor Function - Left Arm: No Drift-Holds 10 Seconds Motor Function - Right Leg: No Drift-Holds 10 Seconds Motor Function - Left Leg: No Drift-Holds 10 Seconds Limb Ataxia-Must be out of Proportion to Weakness Present: Absent Sensory (Use Pinprick to Test Arms/Legs/Trunk/Face): Normal Best Language (Describe Picture, Name Items): Some Loss Dysarthria (Read Several Words): Slurs Some Words Extinction and Inattention: No Abnormality Total Score: 5 Re-Evaluation - Re-Evaluation First Eval Re-Evaluation Time: 10:45 Change: Unchanged Course/Dx - Course Course Of Treatment: Mr. Fay presented by EMS with the story that 10 minutes prior to his calling EMS he started with drooping on the right side of his face and weakness on the right side of his body and difficulty speaking. He had reported a history of falling yesterday. My initial exam was positive only for generalized weakness and slow mentation but a Tim Cox was called with a concern for ischemic or hemorrhagic stroke. His CT was positive for a subacute right CVA. On re-evaluaton when he got back to the department, he was more alert and seemed to have an expressive aphasia and mild right-sided weakness. He is right-handed and this was puzzling. Dr. Hunter was consulted and he was admitted to the hopitalist group. He is not a TPA candidate secondary to the subacute CVA. - Diagnoses Provider Diagnoses: CVA (cerebral vascular accident) During the Visit The Following Alert/Code Occurred: Code Cox - Physician Notifications Discussed Care of Patient With: Dr. Mahmood (radiologist) @ 1007. CT imaging results reviewed. Dr. Hunter (Neurologist) @ 1008. Will see pt in ED, pt is not a tPA candidate. - Critical Care Time Critical Care Time: 30-74 min Discharge - Discharge Plan Condition: Fair Disposition: ADMITTED TO [facility] documentation as recorded by the E[facility] heart Billy accurately reflects the service I personally performed and the decisions made by me, Ranulfo Armenta MD.
--- NOTE | 2016-09-02 19:46 | CONS ---
CONSULTATION REPORT: DATE OF CONSULT / DATE OF DICTATION: 09/02/16 PATIENT OF: Dr. Pillai of the [facility]. HISTORY OF PRESENT ILLNESS: This is a 61-year-old man I am asked to evaluate for new onset of aphasia. His reports that he woke up at 8 o'clock this morning and went, made her cup of coffee and was able to talk to her relatively well and at 8:30, acutely had onset of aphasia and some right-sided weakness in his arm. This weakness has resolved and his speech has significantly improved, but is still having difficulty with speaking in full sentences and finding words. This is new for his at this point. However, because of the CT scan that showed a left posterior parietal lobe infarct of recent etiology not clearly seen on the prior scan in late July, no tPA was given and the patient was admitted for further evaluation and treatment. Of note, he was recently seen by Dr. Abraham in the hospital with some right-sided weakness and it was possible seizure at onset. Dr. Abraham at that time on August 15 thought that he had had a seizure, probably psychogenic. He apparently has been on Keppra, but was not reflected in his medication list and that has been continued. PAST MEDICAL HISTORY: He has had strokes in the past including one in 2013, which I reviewed the MRI scans, which showed a partial right MCA stroke. He had right-sided weakness and he received tPA for that. He has been treated for his possible seizures with Keppra and is also on Topamax and had been followed by a neurologist up in [place], but has been in the process of making appointment to follow up with Dr. Abraham. He has had a history of depression with suicidal attempts, possible epilepsy versus psychogenic seizures, morbid obesity, post-traumatic stress disorder, GERD, hypertension, and cerebrovascular disease. MEDICATIONS: At home, include: 1. Lisinopril 5 mg daily. 2. Topamax 150 b.i.d. 3. Atenolol 12.5 daily. 4. Docusate 1 tablet b.i.d. 5. Hydrocodone 2 tabs q.6 hours p.r.n. 6. Plavix 75 mg daily. 7. Meclizine 12.5 t.i.d. p.r.n. 8. Gabapentin 100 mg p.o. 9. Keppra 1000 mg p.o. b.i.d. 10. Lipitor 20 mg b.i.d. 11. Cymbalta 20 mg daily. ALLERGIES: He has no drug allergies. SOCIAL HISTORY: He does not smoke or drink and he is a disabled [place] vet. No history of drug abuse. He has had a fall the day before admission and he walks with a walker. PHYSICAL EXAM: Temperature 97.6, pulse 56, respirations 17, blood pressure 159/ 96. He is alert and oriented. He knows his name, knows he is in the hospital, but he has difficulty naming things and repeating things. He could repeat "I'm in the hospital," but then he perseverates and he had some word-finding difficultly even with repetition. When I asked his age, he began talking about when he was 12. He was able to say common phrases such as "Hello, how are you" without any problems. All this represents a significant improvement from this morning. Cranial nerves II through XII are intact other than there is a minor facial asymmetry, decreased nasolabial fold on the right. Strength was 5/5 diffusely. Reflexes were 1. Toes were equivocal to downgoing. Sensation was intact to light touch. Chest: Clear. Cardiovascular: Regular rate and rhythm. Abdomen is soft with positive bowel sounds. He was morbidly obese. DIAGNOSTIC STUDIES/LAB DATA: His CT scan was reviewed and I agreed that there is a left posterior parietal hypodensity which most likely represents a subacute developing infarct. I reviewed his MRI scan which was not there on his prior scan from August 15. I reviewed his MRI scan from 2013 which did show an acute stroke on his right side and he also has some diffuse white matter disease probably secondary to small vessel ischemic disease. He has had no recent carotid Doppler. There was no significant stenosis on his carotid Doppler from 2014. He has a normal CMP other than a creatinine of 1.67, a total protein of 6.2, LDL was 69. Normal INR and PTT. Normal CBC other than a hematocrit of 37. IMPRESSION: Mr. Fay has a recent onset of aphasia most likely representing a stroke, but it appears that his CT scan shows a recent stroke since the of significant size that may have been silent, but then he has had the stroke in roughly the same distribution. Because of these findings on CT scan, he is not a good tPA candidate. TPA was not given. This has been explained to him and his . I discussed that the degree of his symptoms at this point and the fact that he has had a recent stroke would make it unlikely that he has a symptomatic clot is in a large enough blood vessel that needs retrieval and risk is higher int that he has also had a recent stroke. Since it is unlikely that he would benefit from clot retrieval, I am not obtaining a CTA scan at this point now because of the risk of worsening his kidney function. We will check a carotid Doppler. I am concerned that this could be cardiogenic because he has had large vessel strokes now on both sides and I will be getting both a ITALO echo and if there is no source of clot found on his workup in the hospital, he would be a good candidate for prolonged cardiac monitoring. We are going to add for now a baby aspirin to his Plavix. Discussed the case with RUTHY Sampson. [id number]/[facility] #: [id number] DANA
--- NOTE | 2016-09-02 21:09 | HP ---
ADMISSION HISTORY AND PHYSICAL: DATE OF ADMISSION: 09/02/16 PRIMARY CARE PROVIDER: [facility]. PRIMARY NEUROLOGIST: Dr. Abraham. ATTENDING PHYSICIAN: Sherron Thornton MD * (DICTATED BY RUTHY PERES) CHIEF COMPLAINT: Expressive aphasia and increased right-sided weakness. HISTORY OF PRESENT ILLNESS: This is a 61-year-old gentleman with a history of seizure disorder; 2 prior CVAs, one hemorrhagic and one ischemic with some residual mild right-sided weakness as well as PTSD, hypertension, hyperlipidemia , vertigo, and chronic kidney disease who presented to the emergency department this morning with an acute onset of difficulty speaking. The patient's noted that he was having difficulty getting his words out and was complaining of increased right- sided weakness. Symptoms appeared to start rather acutely this morning at about 8:30. Of note, the patient did fall yesterday and stated that he hit his head. He had some proceeding dizziness which he reported was consistent with history of vertigo. He did not lose consciousness. He did have a headache earlier today, but denies anything currently. The patient was seen in the emergency department last week with increased right - sided weakness and what was thought to be a seizure. The patient was evaluated by Dr. Abraham who felt that his seizure was likely psychogenic in origin and the patient was discharged from the emergency department. His states that they have been having difficulty making a followup appointment with Dr. Abraham's office. The patient reports compliance with his home medications which does include a statin as well as Plavix and his antiepileptic medications. PAST MEDICAL HISTORY: 1. Seizure disorder - psychogenic versus absence seizures who is yet to officially establish care with Dr. Abraham, but has been evaluated in the hospital on a couple of occasions. 2. Prior CVAs, one hemorrhagic and one ischemic, most recently in 2013 with some complaints of residual right-sided weakness, but of note, MRI from 2014 shows a right MCA distribution infarct. 3. Depression. 4. PTSD. 5. Hypertension. 6. Hyperlipidemia. 7. GERD. 8. History of DVT, status post knee surgery. 9. Stage 3 chronic kidney disease. PAST SURGICAL HISTORY: 1. Left knee arthroscopy for meniscus. 2. Skin graft to his left arm. HOME MEDICATIONS: 1. Atenolol 12.5 mg p.o. daily. 2. Atorvastatin 20 mg p.o. b.i.d. 3. Vitamin D3 2000 units p.o. daily. 4. Plavix 75 mg p.o. daily. 5. Cymbalta 20 mg p.o. daily. 6. Gabapentin 100 mg p.o. in the morning and 200 at night. 7. Hydrocodone/acetaminophen 5/500 two tablets p.o. q.6 hours p.r.n. pain. 8. Keppra 1000 mg p.o. b.i.d. 9. Lisinopril 5 mg p.o. daily. 10. Meclizine 12.5 mg p.o. t.i.d. 11. Multivitamin 1 tablet p.o. daily. 12. Protonix 40 mg p.o. at bedtime. 13. Potassium 20 mEq p.o. b.i.d. 14. Senna 1 tablet p.o. b.i.d. as needed for constipation. 15. Topamax 150 mg p.o. b.i.d. FAMILY HISTORY: Both his brother and sister have history of CVAs. SOCIAL HISTORY: The patient lives at home with his . He is a disabled [place] war . Denies any smoking history. No regular alcohol consumption. REVIEW OF SYSTEMS: As noted above in HPI. PHYSICAL EXAMINATION GENERAL: This is a 61-year-old gentleman who appears slightly older than his stated age, accompanied by his , resting comfortably in hospital bed in no acute distress. VITAL SIGNS: Temperature 97.7 degrees Fahrenheit, pulse 74 beats per minute, respiratory rate 17 per minute, oxygen saturation 100% on room air, and blood pressure 145/82 mmHg. HEENT: Head is normocephalic, atraumatic. Mucous membranes are pink and moist. NECK: No obvious JVD. Neck is supple and free of lymphadenopathy. RESPIRATORY: Lungs are clear to auscultation without wheezes, crackles, or rhonchi. CARDIOVASCULAR: Heart has a regular rate and rhythm without murmurs, rubs, or gallops. ABDOMEN: Soft and nontender to palpation. EXTREMITIES: No lower extremity edema appreciated. NEUROLOGIC: The patient's neurologic exam is not entirely repeatable, but he does appear to have some mild right-sided weakness primarily in his right upper extremity, perhaps a little right-sided facial asymmetry. Sensation is grossly intact. Cranial nerves II through XII are otherwise intact. The patient does have some difficulty with word finding. He seems to mix up some words during conversation and occasionally stutters. Other times, his word choice and siobhan are appropriate. PSYCH: The patient is alert and appropriately oriented. LABORATORY EVALUATION: CBC shows white blood cell count of 7200, hemoglobin 12.2 g/dL, platelet count of 151,000. INR 0.93 with a normal PTT of 33. Comprehensive metabolic panel shows a sodium of 141 mmol/L, potassium 4.5 mmol/L , BUN of 19, creatinine 1.67 with an estimated GFR of 42. Random glucose 94 g/ dL. Transaminases and total bilirubin within normal limits. Lipid panel shows a total cholesterol of 116, triglycerides 61, LDL 69, HDL 35. Urinalysis is unremarkable. IMAGING: EKG shows sinus bradycardia. Chest x-ray shows no acute process. CT of the brain shows a questionable subacute versus acute infarct in the left posterior parietal lobe. ASSESSMENT AND PLAN: This is a 61-year-old gentleman with history of 2 prior cerebrovascular accidents, seizure disorder, post-traumatic stress disorder, depression, hyperlipidemia, vertigo, chronic kidney disease, history of deep vein thrombosis following a knee surgery in the past who presents with an acute onset of expressive aphasia and increased right-sided weakness. Concern for acute or subacute infarct appreciated on CT scan. The patient is being admitted for further treatment and evaluation. 1. Suspected left parietal cerebrovascular accident - neurologist, Dr. Hunter , has been to evaluate the patient. He does have some residual symptoms that seems to be overall improving. Does have some mild right-sided weakness which is likely chronic for him, but is still having some word-finding difficulty. We will obtain an MRI of the brain to further evaluate the left parietal region. Although he does have symptoms of chronic right-sided weakness, his last cerebrovascular accident was well documented in the right MCA and this is now left-sided, increasing concern for possible embolic origin of his cerebrovascular accident. He had a transthoracic echocardiogram done in 2013 with his last admission for cerebrovascular accident which was unremarkable. We will plan to do a ITALO. He is on Plavix at home. We will plan to add 81 mg aspirin. Continue statin therapy. We will continue his beta-linda, hold his VANESSA inhibitor to allow for permissive hypertension. We will also obtain carotid ultrasound. We will avoid a CTA due to his renal function and his lack of dramatic symptoms making a large vessel occlusion less likely. 2. Seizure disorder - history of absence versus psychogenic seizures currently treated with topiramate and Keppra. We will check Keppra levels. Otherwise, plan to continue at current dosage. The patient does need to establish followup with Dr. Abraham prior to discharge. 3. Chronic kidney disease - stage 3, appears to be near baseline. Plan to avoid nephrotoxic agents. 4. Hypertension - continue with beta-linda. Hold VANESSA inhibitor at this time. 5. Hyperlipidemia - continue statin. 6. History of vertigo. 7. Post-traumatic stress disorder and depression. 8. Code status: The patient is full code. 9. Healthcare proxy is his . 10. DVT prophylaxis: Medical prophylaxis will be held in the setting of acute cerebrovascular accident. We will order SCDs. DISPOSITION: The patient is being admitted under inpatient status for concern of CVA. MRI pending. Neurology consult appreciated. RUTHY PERES [id number]/[facility] #: [id number]
[2016-09-02] MEDS: Topiramate TAB(*) 100 MG PO SCH (22:42)
[2016-09-02] MEDS: Potassium Chlor TAB* 20 MEQ TAB.ER PO SCH (22:42)
[2016-09-02] MEDS: levETIRAcetam TAB* 500 MG PO SCH (22:43)
[2016-09-02] MEDS: CMCS: Pantoprazole TAB (NF) 40 MG TAB PO SCH (22:44)
[2016-09-03 05:46] LABS: BUN/Creatinine Ratio 12.4 (8-20); Calcium 8.6 mg/dL (8.6-10.3); EGFR African American 68.2 (>60); Potassium 3.8 mmol/L (3.5-5.0)
[2016-09-03] MEDS ORDERED: Gabapentin CAP(*) 100 MG PO SCH (09:00)
[2016-09-03] MEDS ORDERED: Lisinopril TAB* 5 MG PO SCH (09:00)
[2016-09-03] MEDS ORDERED: Flumazenil* 0.1 MG/ML 5 ML MDV ONE (10:41)
[2016-09-03] MEDS ORDERED: fentaNYL* 50 MCG/ML 2 ML VIAL (100 MCG VIAL) ONE (10:41)
[2016-09-03] MEDS ORDERED: Lidocaine 2% VISCOUS* 15 ML UDC ONE (10:41)
[2016-09-03] MEDS ORDERED: Midazolam* 1 MG/ML 5 ML VIAL (5 MG) ONE (10:41)
[2016-09-03] MEDS ORDERED: Naloxone* 0.4 MG/ML 1 ML VIAL ONE (10:41)
--- NOTE | 2016-09-03 12:23 | PN ---
Subjective Date of Service: 09/03/16 Interval History: Mr. Fay is weepy today but does not offer any particular complaint. He perserverates on saying his name over and over. However, he is able to coherently conversate with me, if slowly. He denies any weakness or difficulty swallowing. He denies chest pain or SOB. He denies nausea or abdominal pain. Objective Active Medications: Acetaminophen/Hydrocodone Bitart ([place] 5-325 Tab*) 2 tab PO Q6H PRN Aspirin (Aspirin Ec Low Dose*) 81 mg PO DAILY JEAN-PIERRE Atenolol (Tenormin Tab*) 12.5 mg PO DAILY JEAN-PIERRE Atorvastatin Calcium (Lipitor*) 40 mg PO 1700 JEAN-PIERRE Clopidogrel Bisulfate (Plavix Tab*) 75 mg PO DAILY JEAN-PIERRE Docusate Sodium (Colace Cap*) 100 mg PO BID PRN Duloxetine HCl (Cymbalta Cap*) 20 mg PO DAILY JEAN-PIERRE Gabapentin (Neurontin Cap(*)) 200 mg PO QPM JEAN-PIERRE Gabapentin (Neurontin Cap(*)) 100 mg PO DAILY JEAN-PIERRE Levetiracetam (Keppra Tab*) 1,000 mg PO BID JEAN-PIERRE Meclizine HCl (Antivert Tab*) 12.5 mg PO TID PRN Pantoprazole Sodium (Protonix Tab (Nf)) 40 mg PO BEDTIME JEAN-PIERRE Potassium Chloride (Klor Con Er Tab*) 20 meq PO BID JEAN-PIERRE Senna (Senokot Tab*) 1 tab PO BID PRN Topiramate (Topamax(*)) 150 mg PO BID [facility] Vital Signs 09/02/16 09/02/16 09/02/16 14:25 15:16 17:45 Temperature 97.7 F Pulse Rate 74 Respiratory 18 17 18 Rate Blood Pressure 145/82 (mmHg) O2 Sat by Pulse 100 Oximetry 09/02/16 09/02/16 09/02/16 19:20 19:45 20:00 Temperature 98.0 F Pulse Rate 67 Respiratory 18 18 18 Rate Blood Pressure 133/79 (mmHg) O2 Sat by Pulse 100 99 Oximetry 09/02/16 09/03/16 09/03/16 23:25 02:44 07:19 Temperature 99.1 F 98.2 F 98.8 F Pulse Rate 66 71 73 Respiratory 16 16 18 Rate Blood Pressure 160/85 142/88 141/80 (mmHg) O2 Sat by Pulse 100 98 100 Oximetry 09/03/16 09/03/16 08:00 11:56 Temperature 99.2 F Pulse Rate 68 Respiratory 17 17 Rate Blood Pressure 151/77 (mmHg) O2 Sat by Pulse 99 Oximetry Oxygen Devices in Use Now: None Appearance: Male lying in bed in NAD Respiratory: Symmetrical Chest Expansion and Respiratory Effort, Clear to Auscultation Cardiovascular: NL Sounds; No Murmurs; No JVD, No Edema Abdominal: NL Sounds; No Tenderness; No Distention Extremities: No Edema Skin: No Rash or Ulcers Neurological: Alert and Oriented x 3, NL Muscle Strength and Tone Nutrition: Taking PO's Result Diagrams: 09/02/16 10:15 09/03/16 05:03 Additional Lab and Data: Lab Results 09/02/16 09/02/16 09/02/16 Range/Units 10:11 10:15 10:15 WBC 7.2 (3.5-10.8) 10^3/ul RBC 4.07 (4.0-5.4) 10^6/ul Hgb 12.2 L (14.0-18.0) g/dl Hct 37 L (42-52) % MCV 90 (80-94) fL MCH 30 (27-31) pg MCHC 34 (31-36) g/dl RDW 14 (10.5-15) % Plt Count 151 (150-450) 10^3/ul MPV 9 (7.4-10.4) um3 Neut % (Auto) 56.9 (38-83) % Lymph % (Auto) 28.8 (25-47) % [place] % (Auto) 8.7 (1-9) % Eos % (Auto) 4.3 (0-6) % Baso % (Auto) 1.3 (0-2) % Absolute Neuts (auto) 4.1 (1.5-7.7) 10^3/ul Absolute Lymphs (auto) 2.1 (1.0-4.8) 10^3/ul Absolute Monos (auto) 0.6 (0-0.8) 10^3/ul Absolute Eos (auto) 0.3 (0-0.6) 10^3/ul Absolute Basos (auto) 0.1 (0-0.2) 10^3/ul Absolute Nucleated RBC 0 10^3/ul Nucleated RBC % 0.1 INR (Anticoag Therapy) 0.93 (0.89-1.11) APTT 33.3 (26.0-36.3) seconds Sodium (133-145) mmol/L Potassium (3.5-5.0) mmol/L Chloride (101-111) mmol/L Carbon Dioxide (22-32) mmol/L Anion Gap (2-11) mmol/L BUN (6-24) mg/dL Creatinine (0.67-1.17) mg/dL Est GFR ( Amer) (>60) Est GFR (Non-Af Amer) (>60) BUN/Creatinine Ratio (8-20) Glucose (70-100) mg/dL POC Glucose (mg/dL) 103 (74-106) mg/dL Lactic Acid (0.5-2.0) mmol/L Calcium (8.6-10.3) mg/dL Total Bilirubin (0.2-1.0) mg/dL AST (13-39) U/L ALT (7-52) U/L Alkaline Phosphatase (34-104) U/L Troponin I (<0.04) ng/mL Total Protein (6.4-8.9) g/dL Albumin (3.2-5.2) g/dL Globulin (2-4) g/dL Albumin/Globulin Ratio (1-3) Triglycerides mg/dL Cholesterol mg/dL LDL Cholesterol mg/dL HDL Cholesterol mg/dL 09/02/16 09/02/16 Range/Units 10:15 10:15 WBC (3.5-10.8) 10^3/ul RBC (4.0-5.4) 10^6/ul Hgb (14.0-18.0) g/dl Hct (42-52) % MCV (80-94) fL MCH (27-31) pg MCHC (31-36) g/dl RDW (10.5-15) % Plt Count (150-450) 10^3/ul MPV (7.4-10.4) um3 Neut % (Auto) (38-83) % Lymph % (Auto) (25-47) % [place] % (Auto) (1-9) % Eos % (Auto) (0-6) % Baso % (Auto) (0-2) % Absolute Neuts (auto) (1.5-7.7) 10^3/ul Absolute Lymphs (auto) (1.0-4.8) 10^3/ul Absolute Monos (auto) (0-0.8) 10^3/ul Absolute Eos (auto) (0-0.6) 10^3/ul Absolute Basos (auto) (0-0.2) 10^3/ul Absolute Nucleated RBC 10^3/ul Nucleated RBC % INR (Anticoag Therapy) (0.89-1.11) APTT (26.0-36.3) seconds Sodium 141 (133-145) mmol/L Potassium 4.5 (3.5-5.0) mmol/L Chloride 114 H (101-111) mmol/L Carbon Dioxide 24 (22-32) mmol/L Anion Gap 3 (2-11) mmol/L BUN 19 (6-24) mg/dL Creatinine 1.67 H (0.67-1.17) mg/dL Est GFR ( Amer) 54.2 (>60) Est GFR (Non-Af Amer) 42.2 (>60) BUN/Creatinine Ratio 11.4 (8-20) Glucose 94 (70-100) mg/dL POC Glucose (mg/dL) (74-106) mg/dL Lactic Acid 0.7 (0.5-2.0) mmol/L Calcium 9.0 (8.6-10.3) mg/dL Total Bilirubin 0.60 (0.2-1.0) mg/dL AST 14 (13-39) U/L ALT 9 (7-52) U/L Alkaline Phosphatase 73 (34-104) U/L Troponin I 0.00 (<0.04) ng/mL Total Protein 6.2 L (6.4-8.9) g/dL Albumin 3.6 (3.2-5.2) g/dL Globulin 2.6 (2-4) g/dL Albumin/Globulin Ratio 1.4 (1-3) Triglycerides 61 mg/dL Cholesterol 116 mg/dL LDL Cholesterol 69 mg/dL HDL Cholesterol 35.1 mg/dL Assess/Plan/Problems-Billing Assessment: Mr. Fay is a 61 yo male with a PMH of seizure disorder, 2 previous CVAs (one hemorrhagic and one ischemic), hypertension, and stage III CKD who was admitted on 09/02/16 with aphasia, right sided weakness and new ischemic CVA, subacute. - Patient Problems (1) CVA (cerebral vascular accident) Comment: L parietal CVA noted on CT and MRI brain, subacute. Appreciate consultation from Dr. Hunter. High suspicion for cardioembolic source given distrubution of strokes. ITALO with bubble study today. No significant atherosclerosis noted on carotid US. Plan for 48 hrs telemetry monitoring and possible custodial outpatient monitoring. Continue aspirin, atorvastatin and plavix. Lipids well controlled. No history of DM. (2) Hypertension Comment: SBP 130-150s. Continue low dose atenolol. Hold lisinopril to allow for degree of hypertension to support brain perfusion. (3) Seizure disorder Comment: Patient having intermittent episodes of shaking and then staring off, being unable to speal. EEG ordered. Continue topamax and keppra. Keppra level pending. Status and Disposition: Inpatient with CVA and expected LOS > 2 days. Home when medically stable.
[2016-09-03] MEDS: levETIRAcetam TAB* 500 MG PO SCH ×2 (12:33→21:16)
--- NOTE | 2016-09-03 13:06 | TEE ---
Patient: BRENDAN WEEMS [facility] Rec#: [id number] : 1955 Date: 09/03/2016 Age: 61y Height: 193.04 cm / 76.0 in Weight: 145.15 kg / 319.9 lbs Sex: M BSA: 2.71 Room#: [facility] Type: Inpatient Referring: Sherron Floyd MD Performing: Antelmo Flores MD Reading: Antelmo Flores MD Risk Control Director: Syl Jean Baptiste RDCS Nurse: Iman Chang RN Nurse: Bart Flood RN CC: Luigi Pillai MD Transesophageal Echocardiogram Indication: CVA BP: 128/99 HR: 86 Rhythm: NSR Findings History: Prior hemorrhagic and ischemic CVAs,CAD,HTN,obesity. Technical Comments: The study quality is good. Left Ventricle: The left ventricular chamber size is normal. The estimated ejection fraction is 55-60%. Gastric views attempted but were suboptimal. Left Atrium: The left atrial chamber size is normal. There is no thrombus visualized in the left atrial appendage. Right Ventricle: The right ventricular cavity size is normal. The right ventricular global systolic function is normal. Right Atrium: The right atrial cavity size is normal. A prominent eustachian valve is noted in the right atrium. The interatrial septum appears lipomatous. There is no patent foramen ovale visualized. A patent foramen ovale is not demonstrated with color Doppler and agitated contrast. Aortic Valve: The aortic valve is trileaflet. There is a trace of aortic regurgitation. There is no evidence of aortic stenosis. Mitral Valve: The mitral valve leaflets appear normal. There is mild mitral regurgitation. There is no evidence of mitral stenosis. Tricuspid Valve: The tricuspid valve leaflets are normal. There is mild tricuspid regurgitation. There is no tricuspid stenosis. Pulmonic Valve: The pulmonic valve appears normal. There is a trace pulmonic regurgitation. There is no pulmonic stenosis. Pericardium: A pericardial fat pad is visualized. Aorta: There is mild dilatation of the ascending aorta. There is mild dilatation of the aortic root. There is plaque visualized in the descending aorta.mild-moderate Pulmonary Artery: The main pulmonary artery appears normal. Venous: The bicaval view was obtained and appears normal. The pulmonary veins appear normal in size. 3 of 4 seen. The flow pattern of the pulmonary veins appear normal. ITALO Procedures: History and physical as well as labs were reviewed. The patient was in a fasting state. Risks and benefits of the procedure, including alternatives, were discussed and written informed consent was obtained. The patient and/or their health care account manager sales representative expressed understanding of the procedure, risks and benefits. Baseline and continuous monitoring of blood pressure, heart rate, pulse oximetry and heart rhythm was performed throughout the procedure. The appropriate time-out procedure was performed as per [facility] protocol. The patient was placed in the left lateral decubitus position. The patient's posterior pharynx was anesthetized with 20ml of 2% viscous lidocaine. The patient received IV Midazolam with a total dose of 4 mg. The patient received IV Fentanyl with a total dose of 50mcg. An oral bite block was inserted for protection of oral dentition. The multiplane transesophageal echocardiogram probe was inserted through the posterior oropharynx and advanced into the esophagus without difficulty. Multiple 2D images were obtained of the heart and its related structures. Color flow Doppler was used for evaluation. Spectral Doppler was also used. The atrial septum was interrogated with color flow Doppler. At the conclusion of the procedure the probe was removed with continuous suction without complications. The patient tolerated the procedure with no apparent complications. Conclusions The estimated ejection fraction is 55-60%. Gastric views attempted but were suboptimal. There is no patent foramen ovale visualized. A patent foramen ovale is not demonstrated with color Doppler and agitated contrast. There is a trace of aortic regurgitation. There is mild mitral regurgitation. There is mild tricuspid regurgitation. There is a trace pulmonic regurgitation. There is mild dilatation of the ascending aorta. There is mild dilatation of the aortic root. There is plaque visualized in the descending aorta.mild-moderate Measurements Name Value Normal Range Aortic Annulus 2.2 cm (1.4 - 2.6) Ao root diameter (2D) 3.9 cm (2.1 - 3.5) Ascending Ao 4.1 cm (2.1 - 3.4) Name Value Normal Range MV E-wave Vmax 1.2 m/sec - MV deceleration time 135 msec -
[2016-09-03] MEDS: Topiramate TAB(*) 100 MG PO SCH ×2 (15:21→21:16)
[2016-09-03] MEDS: Aspirin EC Low Dose* 81 MG TAB.EC PO SCH (16:13)
[2016-09-03] MEDS: Atenolol TAB* 25 MG PO SCH (16:13)
[2016-09-03] MEDS: Clopidogrel TAB* 75 MG PO SCH (16:15)
[2016-09-03] MEDS: Gabapentin CAP(*) 100 MG PO SCH ×2 (16:15→17:29)
[2016-09-03] MEDS: Potassium Chlor TAB* 20 MEQ TAB.ER PO SCH ×2 (16:15→21:16)
[2016-09-03] MEDS: DULoxetine DR CAP* 20 MG CAP.DR PO SCH (16:19)
[2016-09-03] MEDS: Atorvastatin* 40 MG TAB PO SCH (17:29)
[2016-09-03] MEDS: CMCS: Pantoprazole TAB (NF) 40 MG TAB PO SCH (21:16)
[2016-09-04] MEDS: HYDROcodone/ACETAMIN 5-325 MG* 1 TAB PO PRN ×2 (02:01→10:43)
--- NOTE | 2016-09-04 05:02 | PN ---
NEUROLOGICAL FOLLOWUP NOTE: DATE OF FOLLOWUP: 09/03/16 DATE OF DICTATION: 09/03/16 - ROOM #448 PATIENT OF: Olga Bravo NP HISTORY: This is a 61-year-old man who had a recent stroke. He has no new complaints. There have been odd movements from [id number] that apparently did not look like seizures but there was some concern that this might be the case. He has had no new deficits. MEDICATIONS: His medicines continued to be his: 1. Aspirin 81 mg daily. 2. Plavix 75 mg daily. 3. Lipitor 40 mg daily. 4. Atenolol. 5. Gabapentin. 6. Keppra 1000 mg b.i.d. 7. Protonix. 8. Topamax 150 b.i.d. PHYSICAL EXAMINATION: Temperature 99.2, pulse 68, respirations 17, blood pressure 151/77. He is alert. He knows his name. He said in a full sentence that he was in the hospital, although the sentence was hesitant. He got distracted and did not tell me his age. He speaks in short phrases or hesitant sentences, still has word- finding difficulties. Has a right upper motor neuron facial palsy. There is no pronator drift and strength was good in the leg. Gait was not tested. Chest: Clear. Cardiovascular: Regular rate and rhythm. Abdomen is soft with positive bowel sounds. DIAGNOSTIC STUDIES/LAB DATA: His TE echo did not show any source of clot or PFO. His carotid Doppler showed less than 50% stenosis bilaterally. His MRI scan, I reviewed and it showed a subacute nonhemorrhagic left posterior temporal, inferior parietal) stroke similar to the findings seen on CT scan yesterday, but is better demonstrated. He also had chronic small vessel ischemic disease with multifocal encephalomalacia of cerebral hemisphere consistent with bihemispheric infarcts. His BMP today was normal other than a creatinine of 1.37. IMPRESSION: Clinically, he is doing somewhat better than yesterday in terms of speech output but he remains in a significant aphasia, he needs to be evaluated for ongoing speech therapy and he will need to be walked today to see if he is stable enough to go home. Olga Bravo NP, is going to get an EEG because of these odd spells that did not sound like seizures. His Keppra will need to be readdressed in the near future because of his depression issues, and if his EEG is normal depending on what his spells seem like, we may actually decrease his Keppra slightly. He will need long-term cardiac monitoring to make sure this is not an underlying paroxysmal atrial fibrillation for his large vessel strokes that are occurring in more than one vascular distribution to more completely rule out a cardiac source. [id number]/[facility] #: [id number] DANA
[2016-09-04] MEDS: Aspirin EC Low Dose* 81 MG TAB.EC PO SCH (08:12)
[2016-09-04] MEDS: Clopidogrel TAB* 75 MG PO SCH (08:13)
[2016-09-04] MEDS: levETIRAcetam TAB* 500 MG PO SCH (08:13)
[2016-09-04] MEDS: Potassium Chlor TAB* 20 MEQ TAB.ER PO SCH (08:13)
[2016-09-04] MEDS: Gabapentin CAP(*) 100 MG PO SCH (08:16)
[2016-09-04] MEDS: Topiramate TAB(*) 100 MG PO SCH (08:17)
[2016-09-04] MEDS: Atenolol TAB* 25 MG PO SCH (08:18)
[2016-09-04] MEDS: DULoxetine DR CAP* 20 MG CAP.DR PO SCH (08:23)
--- NOTE | 2016-09-04 10:31 | EEG ---
ELECTROENCEPHALOGRAPHY: DATE OF STUDY: 09/03/16 DATE OF DICTATION: 09/03/16 PATIENT OF: Olga Bravo NP; Dr. Hunter. CLINICAL PROBLEM: This is a 61-year-old man with new stroke and a history of seizures today, some of them have been thought to be functional. MEDICATIONS: Include: 1. Antivert. 2. Hydrocodone. 3. Pantoprazole. 4. Keppra. 5. Lipitor. 6. Topamax. 7. Neurontin. 8. Cymbalta. 9. Plavix. 10. Atenolol. REPORT: With the patient awake, background cerebral activity consists of moderate amplitude posterior dominant 8-9 Hz rhythm, which attenuates with eye opening and reappears with eye closure. At times the patient becomes drowsy with slowing to the theta range but the patient never falls fully asleep. No epileptiform potentials, focal abnormalities or major asymmetries to background are noted. CLINICAL IMPRESSION: This awake and drowsy EEG is within normal limits. [id number]/[facility] #: [id number] DANA
--- NOTE | 2016-09-04 11:45 | PN ---
Subjective Date of Service: 09/04/16 Interval History: Mr. Fay denies complaint and is eager for discharge to home. Objective Active Medications: Acetaminophen/Hydrocodone Bitart (Union 5-325 Tab*) 2 tab PO Q6H PRN Aspirin (Aspirin Ec Low Dose*) 81 mg PO DAILY [facility] Atenolol (Tenormin Tab*) 12.5 mg PO DAILY [facility] Atorvastatin Calcium (Lipitor*) 40 mg PO 1700 [facility] Clopidogrel Bisulfate (Plavix Tab*) 75 mg PO DAILY [facility] Docusate Sodium (Colace Cap*) 100 mg PO BID PRN Duloxetine HCl (Cymbalta Cap*) 20 mg PO DAILY [facility] Gabapentin (Neurontin Cap(*)) 200 mg PO QPM [facility] Gabapentin (Neurontin Cap(*)) 100 mg PO DAILY [facility] Levetiracetam (Keppra Tab*) 1,000 mg PO BID [facility] Meclizine HCl (Antivert Tab*) 12.5 mg PO TID PRN Pantoprazole Sodium (Protonix Tab (Nf)) 40 mg PO BEDTIME [facility] Potassium Chloride (Klor Con Er Tab*) 20 meq PO BID [facility] Senna (Senokot Tab*) 1 tab PO BID PRN Topiramate (Topamax(*)) 150 mg PO BID [facility] Vital Signs 09/03/16 09/03/16 09/03/16 11:56 15:38 17:29 Temperature 99.2 F 98.5 F Pulse Rate 68 85 Respiratory 17 18 19 Rate Blood Pressure 151/77 145/81 (mmHg) O2 Sat by Pulse 99 100 Oximetry 09/03/16 09/03/16 09/04/16 19:42 20:00 00:01 Temperature 98.6 F 100.0 F Pulse Rate 73 83 Respiratory 17 16 16 Rate Blood Pressure 131/71 150/87 (mmHg) O2 Sat by Pulse 100 100 96 Oximetry 09/04/16 09/04/16 09/04/16 01:08 02:01 04:01 Temperature 100.4 F Pulse Rate Respiratory 16 16 Rate Blood Pressure (mmHg) O2 Sat by Pulse Oximetry 09/04/16 09/04/16 09/04/16 04:05 07:42 08:15 Temperature 99.3 F 98.2 F Pulse Rate 74 64 Respiratory 16 16 17 Rate Blood Pressure 151/88 140/83 (mmHg) O2 Sat by Pulse 96 97 97 Oximetry 09/04/16 09/04/16 08:16 10:43 Temperature Pulse Rate Respiratory 17 16 Rate Blood Pressure (mmHg) O2 Sat by Pulse Oximetry Oxygen Devices in Use Now: None Respiratory: Symmetrical Chest Expansion and Respiratory Effort, Clear to Auscultation Cardiovascular: NL Sounds; No Murmurs; No JVD, No Edema Abdominal: NL Sounds; No Tenderness; No Distention Extremities: No Edema Skin: No Rash or Ulcers Neurological: Alert and Oriented x 3, NL Muscle Strength and Tone Nutrition: Taking PO's Result Diagrams: 09/02/16 10:15 09/03/16 05:03 Additional Lab and Data: Lab Results 09/02/16 09/02/16 09/02/16 Range/Units 10:11 10:15 10:15 WBC 7.2 (3.5-10.8) 10^3/ul RBC 4.07 (4.0-5.4) 10^6/ul Hgb 12.2 L (14.0-18.0) g/dl Hct 37 L (42-52) % MCV 90 (80-94) fL MCH 30 (27-31) pg MCHC 34 (31-36) g/dl RDW 14 (10.5-15) % Plt Count 151 (150-450) 10^3/ul MPV 9 (7.4-10.4) um3 Neut % (Auto) 56.9 (38-83) % Lymph % (Auto) 28.8 (25-47) % Charlotte % (Auto) 8.7 (1-9) % Eos % (Auto) 4.3 (0-6) % Baso % (Auto) 1.3 (0-2) % Absolute Neuts (auto) 4.1 (1.5-7.7) 10^3/ul Absolute Lymphs (auto) 2.1 (1.0-4.8) 10^3/ul Absolute Monos (auto) 0.6 (0-0.8) 10^3/ul Absolute Eos (auto) 0.3 (0-0.6) 10^3/ul Absolute Basos (auto) 0.1 (0-0.2) 10^3/ul Absolute Nucleated RBC 0 10^3/ul Nucleated RBC % 0.1 INR (Anticoag Therapy) 0.93 (0.89-1.11) APTT 33.3 (26.0-36.3) seconds Sodium (133-145) mmol/L Potassium (3.5-5.0) mmol/L Chloride (101-111) mmol/L Carbon Dioxide (22-32) mmol/L Anion Gap (2-11) mmol/L BUN (6-24) mg/dL Creatinine (0.67-1.17) mg/dL Est GFR ( Amer) (>60) Est GFR (Non-Af Amer) (>60) BUN/Creatinine Ratio (8-20) Glucose (70-100) mg/dL POC Glucose (mg/dL) 103 (74-106) mg/dL Lactic Acid (0.5-2.0) mmol/L Calcium (8.6-10.3) mg/dL Total Bilirubin (0.2-1.0) mg/dL AST (13-39) U/L ALT (7-52) U/L Alkaline Phosphatase (34-104) U/L Troponin I (<0.04) ng/mL Total Protein (6.4-8.9) g/dL Albumin (3.2-5.2) g/dL Globulin (2-4) g/dL Albumin/Globulin Ratio (1-3) Triglycerides mg/dL Cholesterol mg/dL LDL Cholesterol mg/dL HDL Cholesterol mg/dL 09/02/16 09/02/16 Range/Units 10:15 10:15 WBC (3.5-10.8) 10^3/ul RBC (4.0-5.4) 10^6/ul Hgb (14.0-18.0) g/dl Hct (42-52) % MCV (80-94) fL MCH (27-31) pg MCHC (31-36) g/dl RDW (10.5-15) % Plt Count (150-450) 10^3/ul MPV (7.4-10.4) um3 Neut % (Auto) (38-83) % Lymph % (Auto) (25-47) % Charlotte % (Auto) (1-9) % Eos % (Auto) (0-6) % Baso % (Auto) (0-2) % Absolute Neuts (auto) (1.5-7.7) 10^3/ul Absolute Lymphs (auto) (1.0-4.8) 10^3/ul Absolute Monos (auto) (0-0.8) 10^3/ul Absolute Eos (auto) (0-0.6) 10^3/ul Absolute Basos (auto) (0-0.2) 10^3/ul Absolute Nucleated RBC 10^3/ul Nucleated RBC % INR (Anticoag Therapy) (0.89-1.11) APTT (26.0-36.3) seconds Sodium 141 (133-145) mmol/L Potassium 4.5 (3.5-5.0) mmol/L Chloride 114 H (101-111) mmol/L Carbon Dioxide 24 (22-32) mmol/L Anion Gap 3 (2-11) mmol/L BUN 19 (6-24) mg/dL Creatinine 1.67 H (0.67-1.17) mg/dL Est GFR ( Amer) 54.2 (>60) Est GFR (Non-Af Amer) 42.2 (>60) BUN/Creatinine Ratio 11.4 (8-20) Glucose 94 (70-100) mg/dL POC Glucose (mg/dL) (74-106) mg/dL Lactic Acid 0.7 (0.5-2.0) mmol/L Calcium 9.0 (8.6-10.3) mg/dL Total Bilirubin 0.60 (0.2-1.0) mg/dL AST 14 (13-39) U/L ALT 9 (7-52) U/L Alkaline Phosphatase 73 (34-104) U/L Troponin I 0.00 (<0.04) ng/mL Total Protein 6.2 L (6.4-8.9) g/dL Albumin 3.6 (3.2-5.2) g/dL Globulin 2.6 (2-4) g/dL Albumin/Globulin Ratio 1.4 (1-3) Triglycerides 61 mg/dL Cholesterol 116 mg/dL LDL Cholesterol 69 mg/dL HDL Cholesterol 35.1 mg/dL Assess/Plan/Problems-Billing Assessment: Mr. Fay is a 61 yo male with a PMH of seizure disorder, 2 previous CVAs (one hemorrhagic and one ischemic), hypertension, and stage III CKD who was admitted on 09/02/16 with aphasia, right sided weakness and new ischemic CVA, subacute. - Patient Problems (1) CVA (cerebral vascular accident) Comment: L parietal CVA noted on CT and MRI brain, subacute. Appreciate consultation from Dr. Hunter. High suspicion for cardioembolic source given distribution of strokes. ITALO with bubble study found normal wall motion and valves with no PFO. Patient will need watermelon inspector cardiac monitoring outpatient, to follow up with Dr. Pillai. No significant atherosclerosis noted on carotid US. No events noted on telemetry. Continue aspirin, atorvastatin and plavix. Lipids well controlled. No history of DM. (2) Hypertension Comment: SBP 130-150s. Resume atenolol and lisinopril. (3) Seizure disorder Comment: Patient having intermittent episodes of shaking and then staring off, being unable to speal. EEG negative, there has been suspicion for psychogenic seizures in the past. Continue topamax and lower dose keppra per recommendations from neurology. (4) DVT prophylaxis Status and Disposition: Inpatient with CVA and expected LOS > 2 days. Discharge to home.
[2016-09-04 11:48] VITALS: BP 117/73
[2016-09-04] MEDS ORDERED: levETIRAcetam TAB* 500 MG PO ONE (18:00)
--- NOTE | 2016-09-04 20:38 | PN ---
ADDENDUM NOW INCLUDED ON THIS REPORT PROGRESS NOTE: DATE OF SERVICE: 09/04/16 - ROOM #448 PATIENT OF: Olga Bravo NP. The patient has had no further spells. His EEG showed no epileptiform potentials. He remains aphasic, but is improved from yesterday and his does note that he has been significantly depressed but is not suicidal currently. MEDICATIONS: Continued to be: 1. Aspirin 81 mg daily. 2. Plavix 75 daily. 3. Lipitor 40 daily. 4. Atenolol. 5. Gabapentin. 6. Keppra 1000 mg b.i.d. 7. Topamax 150 b.i.d. PHYSICAL EXAMINATION: Temperature 98.2, pulse 63, respirations 16, blood pressure 140/83. He is alert and oriented other than he does not know his age. He can describe what he had for breakfast, was quicker and incomplete sentences and was more fluent than he was yesterday. Cranial nerves II through XII are intact. Strength is 5/5. Chest: Clear. Cardiovascular: Regular rate and rhythm. His EEG was normal. His Keppra level was 18.6. His stroke seems to be improving clinically. He is somewhat more fluent than he was. Physical Therapy is going to see him today and will make plans for discharge. Given his significant depression, although he is not suicidal at this point, I am going to decrease his Keppra somewhat further to 500 in the morning and 1000 at night given the decreased dose this evening. He had been in the past set up with Dr. Abraham and he will see Dr. Abraham as an outpatient because the family wanted closer treatment for his seizures up in [place]. I think this decrease in Keppra may give him a low therapeutic level , but well within range but then Dr. Abraham will have to decide longer term whether to switch him off the Keppra entirely and place him on higher Topamax or assess him further for his seizures. Thank you for sharing his case. ADDENDUM: As discussed previously, it would be reasonable given his multiple large vessel strokes in both hemispheres, he should get long-term cardiac monitoring as an outpatient. [id number]/[facility] #: [id number]- [id number]/[facility] #: [id number] [facility]
--- NOTE | 2016-09-04 20:47 | PN ---
PROGRESS NOTE: * ADDENDUM: As discussed previously, it would be reasonable given his multiple large vessel strokes on both hemispheres, he should get long-term cardiac monitoring as an outpatient. [id number]/[facility] #: [id number] DANA
--- NOTE | 2016-09-04 21:21 | DS ---
HOSPITAL MEDICINE DISCHARGE SUMMARY: DATE OF ADMISSION: 09/02/16 DATE OF DISCHARGE: 09/04/16 PRIMARY CARE PHYSICIAN: Dr. Pillai. ATTENDING PHYSICIAN: Al Kent MD *(dictation provided by Olga Bravo NP) . PRIMARY DIAGNOSIS: Subacute left parietal cerebrovascular accident, ischemic. SECONDARY DIAGNOSES: 1. History of seizure disorder with concern for psychogenic versus absence seizure. 2. History of prior cerebrovascular accident, one hemorrhagic, one ischemic with residual right-sided weakness and voice impairment. 3. Depression. 4. Posttraumatic stress disorder. 5. Hypertension. 6. Hyperlipidemia. 7. Gastroesophageal reflux disease. 8. History of deep venous thrombosis, status post knee surgery. 9. Stage 3 chronic kidney disease. 10. History of left knee arthroscopy. 11. Skin graft to his left arm. MEDICATION AT THE TIME OF DISCHARGE: 1. Atenolol 12.5 mg p.o. daily. 2. Atorvastatin 40 mg p.o. daily. 3. Vitamin D3 2000 units p.o. daily. 4. Plavix 75 mg p.o. daily. 5. Cymbalta 20 mg p.o. daily. 6. Gabapentin 100 mg p.o. in the morning and 200 mg at night. 7. Hydrocodone/acetaminophen 5/500 two tabs p.o. q.6 hours p.r.n. pain. 8. Keppra 500 mg po q AM and 100mg po QPM. 9. Lisinopril 5 mg p.o. daily. 10. Meclizine 12.5 mg p.o. t.i.d. 11. Multivitamin 1 tablet p.o. daily. 12. Protonix 40 mg p.o. at bedtime. 13. Potassium 20 mEq p.o. b.i.d. 14. Senna 1 tab p.o. b.i.d. as needed for constipation. 15. Topamax 150 mg p.o. b.i.d. HOSPITAL COURSE: Mr. Fay is a 61-year-old male with past medical history of seizure disorder and 2 prior CVAs who presented to the emergency room on with concern for expressive aphasia and increased right-sided weakness. Please see the dictated HPI from RUTHY Sampson for complete details. In brief, the patient had noted acute onset of difficulty speaking and increased right-sided weakness immediately prior to coming in to the hospital. In the emergency room, it was found that CT of the brain already showed evidence of a questionable subacute infarct in the left posterior parietal lobe. The patient was seen in consultation by Dr. Hunter who noted that based on the CT of the brain, it was likely the patient's infarct was in fact subacute and that his symptoms had been ongoing longer that had been realized. The patient was therefore not a candidate for TPA. Mr. Fay was admitted to the hospital. He had a brain MRI, which was read as: "Restricted diffusion consistent with subacute and non-hemorrhagic infarct of the left posterior temporal lobe, inferior parietal lobe, and posterior insula, diffuse chronic small vessel ischemic changes with multifocal encephalomalacia of the cerebral hemispheres bilaterally consistent with remote infarcts." Remainder of his workup included a carotid Doppler study, which was read as follows: "No hemodynamically significant stenosis of the right internal carotid artery by flow velocity measurements. No hemodynamically significant stenosis of the left internal carotid artery by flow velocity measurements. Right cervical lymphadenopathy." A transesophageal echocardiogram with bubble study which showed "estimated ejection fraction is 55% to 60%. There was no patent foramen ovale visualized. Trace aortic regurgitation." Mr. Fay was seen in consultation by Dr. Hunter from Neurology. He suspected that, based on the patient's distribution of the stroke, it was likely cardioembolic in nature. The patient was monitored on telemetry unit for 48 hours and showed no evidence of arrhythmia or atrial fibrillation. Our recommendation is that the patient be placed on long-term cardiac monitoring such a loop recorder and he should follow up with Dr. Pillai for this. The patient's other risk factors evaluation included evaluation of his lipids, which showed LDL 69, HDL 35.1. He has no evidence of diabetes. His blood pressure has been well-controlled on atenolol and lisinopril. Mr. Fay has been seen and evaluated by Speech Therapy who notes that his swallow function is intact. He will be followed by PT and Speech as well as nursing services at home. He is independent and close to baseline and safe for discharge. Mr. Fay showed evidence of possible seizure activity while inpatient with concern for some jerky movements and difficulty speaking. He had an EEG, which was read as normal by Dr. Hunter. Patient's Keppra level was 18.[address] Elsa has recommended that we decrease his Keppra from 1000 mg p.o. b.i.d. to 500 mg p.o. q A.M and 1000mg po q P.M.. Mr. Fay is medically stable for discharge to home. Follow up with PT, speech and Dr. Pillai. DISPOSITION: Home. DIET: Low fat, low salt. ACTIVITY: As tolerated. FOLLOWUP PLANS: 1. Please follow up with Dr. Pillai regarding long-term outpatient cardiac monitoring. 2. Please follow up with Dr. Pillai regarding carotid Doppler study finding which was read as follows: "Right cervical lymphadenopathy, recommend correlation with dedicated imaging of the neck." TIME SPENT: Approximately 75 minutes were spent on the discharge of this patient, more than half of the time was spent with him at the bedside reviewing the events leading up to this hospitalization, performing the physical examination, and reviewing the plan of care. OLGA BRAVO NP CC: Dr. Pillai* [id number]/[facility] #: [id number] [facility] HOSPITALCelestine
[2016-09-05] MEDS ORDERED: levETIRAcetam TAB* 500 MG PO SCH ×2 (09:00→18:00)
== END 2016-09-04 13:30 | disposition home health service (06) | DRG 65 ==
LOC: ED 09:49 → MEDTELE 10:48
PROVIDERS: ADMIT Internal Medicine; ATTEND Hospitalist
PROC: 4A00X4Z Measurement of Central Nervous Electrical Activity, External Approach (ICD-10-PCS; 2016-09-03)
PROC: B24BZZ4 Ultrasonography of Heart with Aorta, Transesophageal (ICD-10-PCS; principal; 2016-09-03 10:30)
DX: I63.9 Cerebral infarction, unspecified (principal); I69.351 Hemiplegia and hemiparesis following cerebral infarction affecting right dominant side; G93.89 Other specified disorders of brain; N18.3 Chronic kidney disease, stage 3 (moderate); I25.10 Atherosclerotic heart disease of native coronary artery without angina pectoris; G40.909 Epilepsy, unspecified, not intractable, without status epilepticus; F32.9 Major depressive disorder, single episode, unspecified; R47.01 Aphasia; R29.705 NIHSS score 5; F43.10 Post-traumatic stress disorder, unspecified; E78.5 Hyperlipidemia, unspecified; I12.9 Hypertensive chronic kidney disease with stage 1 through stage 4 chronic kidney disease, or unspecified chronic kidney disease; K21.9 Gastro-esophageal reflux disease without esophagitis; R41.0 Disorientation, unspecified; E66.01 Morbid (severe) obesity due to excess calories; R49.9 Unspecified voice and resonance disorder; I35.1 Nonrheumatic aortic (valve) insufficiency; Z91.5 Personal history of self-harm; Z86.718 Personal history of other venous thrombosis and embolism; Z82.3 Family history of stroke; Z68.39 Body mass index [BMI] 39.0-39.9, adult; I69.398 Other sequelae of cerebral infarction; Z79.02 Long term (current) use of antithrombotics/antiplatelets
CPT/HCPCS: 36415; 70450; 70551; 71010; 80048; 80053; 80061; 80177; 81003; 83605; 84484; 85025; 85610; 85730; 87641; 93005; 93312; 93325; 93880; 95816; A9270-GY; J2250; J2310; J3010

== ENCOUNTER 2016-10-30 12:35 | Emergency (ER) | payer MEDICARE, MEDICAID ==
[2016-10-30 13:18] LABS: Hematocrit 39 % (42-52); Hemoglobin 12.7 g/dl (14.0-18.0); Mean Corpuscular HGB Conc 33 g/dl (31-36); Mean Corpuscular Hemoglobin 29 pg (27-31); Mean Corpuscular Volume 89 fL (80-94); Mean Platelet Volume 9 um3 (7.4-10.4); Red Blood Count 4.34 10^6/ul (4.0-5.4); Red Cell Distribution Width 13 % (10.5-15)
--- NOTE | 2016-10-30 13:30 | RAD ---
INDICATION: Seizure COMPARISON: TECHNIQUE: An AP portable view obtained at 1218 hours is submitted. FINDINGS: Bones/Soft Tissues: There are no acute bony findings. Cardiomediastinal: The cardiomediastinal silhouette is normal. Lungs: There are no infiltrates. Pleura: There are no pleural effusions. Other: None IMPRESSION: NO ACTIVE DISEASE.
[2016-10-30 13:38] LABS: ALT 11 U/L (7-52); AST 15 U/L (13-39); Albumin 3.5 g/dL (3.2-5.2); Alkaline Phosphatase 75 U/L (34-104); Anion Gap 3 mmol/L (2-11); BUN/Creatinine Ratio 11.3 (8-20); Blood Urea Nitrogen 16 mg/dL (6-24); CO2 Carbon Dioxide 24 mmol/L (22-32); Calcium 8.8 mg/dL (8.6-10.3); Chloride 112 mmol/L (101-111); Creatine Kinase 58 U/L (10-223); EGFR African American 65.9 (>60); EGFR Non-African American 51.3 (>60); Globulin 2.7 g/dL (2-4); Glucose 95 mg/dL (70-100); Magnesium 2.3 mg/dL (1.9-2.7); Potassium 4.3 mmol/L (3.5-5.0); Sodium 139 mmol/L (133-145); Total Protein 6.2 g/dL (6.4-8.9)
[2016-10-30 14:14] LABS: Alcohol < 10 mg/dL (<10)
[2016-10-30 14:23] LABS: TSH (Thyroid Stimulating Horm) 0.95 mcIU/mL (0.34-5.60)
[2016-10-30 14:57] LABS: Urine Bilirubin Negative (Negative); Urine Glucose Negative (Negative); Urine Nitrite Negative (Negative)
[2016-10-30 15:17] LABS: Benzodiazepine Urine Screen None Detected (None Detect)
--- NOTE | 2016-10-30 16:54 | ED ---
Isael Chaudhry Alok, scribed for Adair Chi MD on 10/30/16 at 1331 . Syncope/Near Syncope - HPI Summary HPI Summary: 61 y/o male with hx of Sz disorder under medication, presents to the ED after having between 3-4 seizures earlier today witnessed by his speech therapist. These seizures each lasted seconds and prompted his visit to the ED. - History Of Current Complaint Chief Complaint: EDSeizure Time Seen by Provider: 10/30/16 12:55 Hx Obtained From: Patient Onset/Duration: Gradual Onset, Lasting Minutes, Resolved Timing: Seconds Context: Witnessed Activity At Onset: At Rest Associated Head Trauma: No Aggravating Factor(s): Nothing Alleviating Factor(s): Spontaneous Resolution Associated Signs And Symptoms: Negative Frequency: Episodes x___ - 3, Episodes Lasting ____ (in Mins/Days/Weeks/Years) - 30 seconds - Allergies/Home Medications Allergies/Adverse Reactions: Allergies Allergy/AdvReac Type Severity Reaction Status Date / Time No Known Allergies Allergy Verified 10/05/13 12:30 Home Medications: Home Medications Aspirin EC Low Dose* [Ecotrin EC Low Dose 81 MG*] 81 mg PO DAILY 10/30/16 [ History Confirmed 10/30/16] Atenolol TAB* [Tenormin TAB* 25 MG] 12.5 mg PO DAILY 10/30/16 [History Confirmed 10/30/16] Atorvastatin* [Lipitor*] 40 mg PO DAILY 10/30/16 [History Confirmed 10/30/16] Capsaicin 0.1 % TOPICAL TID PRN 10/30/16 [History Confirmed 10/30/16] Cephalexin CAP* [Keflex CAP*] 500 mg PO QID 10/30/16 [History Confirmed 10/30/16 ] Cholecalciferol TAB* [Vitamin D TAB*] 2,000 units PO DAILY 10/30/16 [History Confirmed 10/30/16] Clopidogrel TAB* [Plavix TAB*] 75 mg PO DAILY 10/30/16 [History Confirmed ] DULoxetine DR CAP* [Cymbalta CAP*] 80 mg PO DAILY 10/30/16 [History Confirmed ] Fluticasone NASAL SPRAY 50MCG* [Flonase NASAL SPRAY 50MCG*] 2 spray BOTH NARES DAILY PRN 10/30/16 [History Confirmed 10/30/16] Gabapentin CAP(*) [Neurontin 100 mg CAP(*)] 100 mg PO TID PRN 10/30/16 [History Confirmed 10/30/16] HYDROcodone/ACETAMIN 5-325 MG* [[place] 5-325 TAB*] 1 tab PO BID PRN 10/30/16 [ History Confirmed 10/30/16] Lidocaine 4% TOPICAL* [Xylocaine Topical 4%*] 1 applic TOPICAL TID PRN 10/30/16 [History Confirmed 10/30/16] Topiramate TAB(*) [Topamax 100 mg tab] 200 mg PO BID 10/30/16 [History Confirmed 10/30/16] Zolpidem TAB* [Ambien TAB*] 5 mg PO BEDTIME PRN 10/30/16 [History Confirmed 02/08] PMH/Surg Hx/FS Hx/Imm Hx Endocrine/Hematology History: Reports: Hx Anticoagulant Therapy Cardiovascular History: Reports: Hx Angina, Hx Coronary Artery Disease, Hx Hypertension Denies: Hx Pacemaker/ICD GI History: Reports: Hx Gastroesophageal Reflux Disease History: Reports: Other Problems/Disorders - Frequent urination, undiagnosed. Musculoskeletal History: Reports: Other Musculoskeletal History - Left knee surgery. Sensory History: Reports: Hx Contacts or Glasses Denies: Hx Hearing Aid Opthamlomology History: Reports: Hx Contacts or Glasses Neurological History: Reports: Hx Seizures - epilepsy vs. psychogenic seizures Denies: Other Neuro Impairments/Disorders Psychiatric History: Reports: Hx Anxiety, Hx Depression, Hx Suicide Attempt Denies: Hx Panic Disorder - Surgical History Surgery Procedure, Year, and Place: LEFT ACL REPAIR Infectious Disease History: No Infectious Disease History: Denies: Hx Clostridium Difficile, Hx Hepatitis, Hx Human Immunodeficiency Virus (HIV), Hx of Known/Suspected MRSA, Hx Shingles, Hx Tuberculosis, Hx Known/ Suspected VRE, Hx Known/Suspected VRSA, History Other Infectious Disease, Traveled Outside the [place] in Last 30 Days - Family History Known Family History: Negative: Cardiac Disease, Diabetes - Social History Occupation: Disabled Lives: With Family - Alcohol Use: None Hx Substance Use: No Substance Use Type: Reports: None Hx Tobacco Use: No Smoking Status (MU): Never Smoked Tobacco Have You Smoked in the Last Year: No Review of Systems Negative: Fever Positive: Syncope All Other Systems Reviewed And Are Negative: Yes Physical Exam - Summary Physical Exam Summary: VITAL SIGNS: Reviewed. GENERAL: ~Patient is an obese male who is not comfortable in the stretcher with no complaints. ~Patient is not in any acute respiratory distress. HEAD AND FACE: Normocephalic EYES: PERRLA, EOMI x 2. EARS: Hearing grossly intact. MOUTH: Oropharynx within normal limits. NECK: Supple, trachea is midline, no adenopathy, no JVD, no carotid bruit. CHEST: Symmetric, no tenderness at palpation LUNGS: Clear to auscultation bilaterally. No wheezing or crackles. CVS: Regular rate and rhythm, S1 and S2 present, no murmurs or gallops appreciated. ABDOMEN: Soft, non-tender. Bowel sounds are normal. No abdominal abnormal pulsations. EXTREMITIES: Full ROM in all major joints, no edema, no cyanosis or clubbing. NEURO: Alert and oriented x 3. No acute neurological deficits. Speech is normal and follows commands. SKIN: Dry and warm Triage Information Reviewed: Yes Vital Signs On Initial Exam: Initial Vitals Temp Pulse Resp BP Pulse Ox 98.2 F 54 16 126/71 99 10/30/16 12:55 10/30/16 12:55 10/30/16 12:55 10/30/16 12:55 10/30/16 12:55 Vital Signs Reviewed: Yes Diagnostics - Vital Signs Vital Signs Temp Pulse Resp BP Pulse Ox 10/30/16 12:55 98.2 F 54 16 126/71 99 - Laboratory Lab Results: Lab Results 10/30/16 Range/Units 13:10 WBC 6.0 (3.5-10.8) 10^3/ul RBC 4.34 (4.0-5.4) 10^6/ul Hgb 12.7 L (14.0-18.0) g/dl Hct 39 L (42-52) % MCV 89 (80-94) fL MCH 29 (27-31) pg MCHC 33 (31-36) g/dl RDW 13 (10.5-15) % Plt Count 166 (150-450) 10^3/ul MPV 9 (7.4-10.4) um3 Neut % (Auto) 55.6 (38-83) % Lymph % (Auto) 31.8 (25-47) % [place] % (Auto) 9.0 (1-9) % Eos % (Auto) 3.4 (0-6) % Baso % (Auto) 0.2 (0-2) % Absolute Neuts (auto) 3.3 (1.5-7.7) 10^3/ul Absolute Lymphs (auto) 1.9 (1.0-4.8) 10^3/ul Absolute Monos (auto) 0.5 (0-0.8) 10^3/ul Absolute Eos (auto) 0.2 (0-0.6) 10^3/ul Absolute Basos (auto) 0 (0-0.2) 10^3/ul Absolute Nucleated RBC 0.01 10^3/ul Nucleated RBC % 0.1 Result Diagrams: 10/30/16 13:10 10/30/16 13:10 Lab Statement: Any lab studies that have been ordered have been reviewed, and results considered in the medical decision making process. - Radiology CXR Xray Interpretation: Positive (See Comments) - IMPRESSION: NO ACTIVE DISEASE Radiology Interpretation Completed By: Radiologist - EKG 1356 Cardiac Rate: Bradycardia EKG Rhythm: Sinus Bradycardia - 55 bpm EKG Interpretation: No ST elevations. Inverted T-wave in II Course/Dx Course Of Treatment: 61 y/o male with hx of Sz disorder under medication, presents to the ED after having between 3-4 seizures earlier today witnessed by his speech therapist. These seizures each lasted seconds and prompted his visit to the ED. Assessment/Plan: Blood work within normal limits except for mild anemia, creatinine 1.41 H. Urine negative. Urine Toxicology shows positive opiates. CXR shows no active disease. Pt has been more stable and has had no more seizures. Spoke with Dr. Abraham neurologist for this pt and clarified that the pt is supposed to be talking 500 mg of Keppra in the morning and 500 mg in the evening for one month before discontinue the medication. Family says he has not been taking Keppra which most likely contributed to seizures. Pt was give 500 mg Keppra at the ED. Will send pt home with recommendation to follow up with Dr. Rudd. Pt is hemodynamically stable and A + O x 3. Pt understands instructions to take 500 mg of Keppra in the morning and 500 mg in the evening for one month as well as 200 mg Topiramate in the morning and 200 mg in the evening for seizures. I discussed all the findings and test results with the patient. Patient was instructed to return to the emergency room immediately if any of the symptoms return or worsens. Plan of care was discussed with the patient and understands and agrees. All questions were answered at patient satisfaction. There were no further complaints or concerns. Lung exam before discharge: CTA B/L. Good air exchange. No wheezing or crackles heard. CVS: S1 and S2 present. No murmurs appreciated. Patient is alert and oriented x 3. Patient is hemodynamically stable. Patient will be discharged home with follow up news technical director in the next 2-3 days - Diagnoses Differential Diagnosis/HQI/PQRI: Positive: Dysrhythmia, Hyperventilation, Seizure Provider Diagnoses: Seizures - Physician Notifications Discussed Care Of Patient With: Dr. Abraham (Neuro) @ [id number] Discharge - Discharge Plan Condition: Stable Disposition: HOME Patient Education Materials: Epilepsy (ED) Referrals: Luigi Pillai MD [Primary Care Provider] - Juan Carlos Abraham MD [Medical Doctor] - 2 Days Additional Instructions: Please follow up with Dr. Abraham in the next few days The documentation as recorded by the Isael heart Alok accurately reflects the service I personally performed and the decisions made by me, Adair Chi MD.
[2016-10-30 16:59] VITALS: BP 145/85
== END 2016-10-30 17:04 | disposition home or self-care (01) ==
LOC: ED 12:35
DX: G40.909 Epilepsy, unspecified, not intractable, without status epilepticus (principal); R55 Syncope and collapse
CPT/HCPCS: 36415; 71010; 80053; 80307; 80320; 81003; 82550; 83605; 83735; 84443; 84484; 85025; 85610; 85730; 93005; 99284; G0480

== ENCOUNTER 2017-02-15 11:50 | Inpatient (IN) | payer MEDICARE, MEDICAID ==
[2017-02-15] MEDS ORDERED: Aspirin Low Dose CHEW TAB* 81 MG PO ONE (12:06)
[2017-02-15 12:35] LABS: Hematocrit 40 % (42-52); Hemoglobin 13.3 g/dl (14.0-18.0); Mean Corpuscular HGB Conc 33 g/dl (31-36); Mean Corpuscular Hemoglobin 30 pg (27-31); Mean Corpuscular Volume 90 fL (80-94); Mean Platelet Volume 9 um3 (7.4-10.4); Red Blood Count 4.45 10^6/ul (4.0-5.4); Red Cell Distribution Width 13 % (10.5-15); White Blood Count 6.2 10^3/ul (3.5-10.8)
[2017-02-15] MEDS ORDERED: Nitroglycerin 2% OINT* 1 GM PAK TOPICAL ONE (12:47)
--- NOTE | 2017-02-15 13:03 | RAD ---
INDICATION: Chest pain COMPARISON: Most recent comparison radiograph is dated October 30, 2016 TECHNIQUE: Single AP portable view of the chest was obtained. FINDINGS: Image quality is compromised due to the relative inferiority of a portable chest x-ray. There is been interval placement of an implantable cardiac monitoring device. The heart and mediastinum exhibit normal size and contour. The lungs are grossly clear. There is no evidence of a large pleural effusion. Visualized bones are normal for the patient's age. IMPRESSION: No radiographic evidence for acute cardiopulmonary abnormality on this portable chest x-ray.
[2017-02-15 13:05] LABS: Albumin 3.6 g/dL (3.2-5.2); BUN/Creatinine Ratio 12.2 (8-20); EGFR African American 71.8 (>60); EGFR Non-African American 55.8 (>60); Potassium 4.1 mmol/L (3.5-5.0); Total Bilirubin 0.8 mg/dL (0.2-1.0); Total Protein 6.6 g/dL (6.4-8.9)
[2017-02-15 13:38] LABS: Troponin I 0.05 ng/mL (<0.04)
[2017-02-15] MEDS ORDERED: Morphine INJ* 2 MG/ML 1 ML SYRINGE IV ONE (14:23)
[2017-02-15] MEDS ORDERED: Gabapentin CAP(*) 100 MG PO PRN (14:55)
[2017-02-15] MEDS ORDERED: Fluticasone NASAL SPRAY 50MCG* 16 gm SPRAY BTL BOTH NARES PRN (14:55)
[2017-02-15] MEDS ORDERED: Meclizine TAB* 12.5 MG PO PRN (14:55)
[2017-02-15] MEDS ORDERED: Zolpidem TAB* 5 MG PO PRN (14:55)
[2017-02-15] MEDS ORDERED: Morphine INJ* 2 MG/ML 1 ML SYRINGE IV PRN (15:02)
[2017-02-15] MEDS ORDERED: levETIRAcetam TAB* 500 MG PO SCH (18:00)
[2017-02-15] MEDS: Heparin VIAL(*) 5000 UNITS/ML VIAL (FIVE THOUSAND) SUBCUT SCH ×2 (18:06→21:14)
[2017-02-15] MEDS ORDERED: Acetaminophen TAB* 325 MG PO PRN (19:10)
[2017-02-15] MEDS ORDERED: levETIRAcetam IV* 1,000 MG in NS 100 mL IVPB ONE (21:00)
[2017-02-15] MEDS ORDERED: levETIRAcetam 500 MG IVPREMIX* 500 MG/100 ML BAG IV ONE (21:00)
[2017-02-15 21:09] LABS: Hematocrit 38 % (42-52); Hemoglobin 12.4 g/dl (14.0-18.0); Mean Corpuscular HGB Conc 33 g/dl (31-36); Mean Corpuscular Hemoglobin 30 pg (27-31); Mean Corpuscular Volume 90 fL (80-94); Mean Platelet Volume 9 um3 (7.4-10.4); Red Cell Distribution Width 13 % (10.5-15); White Blood Count 7.5 10^3/ul (3.5-10.8)
[2017-02-15] MEDS: Lisinopril TAB* 10 MG PO SCH (21:09)
[2017-02-15] MEDS: Potassium Chlor TAB* 20 MEQ TAB.ER PO SCH (21:09)
--- NOTE | 2017-02-15 21:09 | PN ---
Progress Note - Progress Note Date of Service: 02/15/17 Note: ABC alert called. Patient found to be alert with pulse when I arrived within less than a minute. Patient appeared to be staring into space. Has history of seizures and missed am dose of keppra. Gave him 500 mg IV. Send out CMP, trop, CBC, lactic acid, Magnesium, D-dimer. Checked CT of of head with history of CVA. Neuro checks q 4h. EKG without acute change.
[2017-02-15] MEDS: CMCS: Pantoprazole TAB (NF) 40 MG TAB PO SCH (21:10)
[2017-02-15] MEDS: Topiramate TAB(*) 100 MG PO SCH (21:11)
[2017-02-15] MEDS: Atorvastatin* 40 MG TAB PO SCH (21:12)
[2017-02-15] MEDS: Nystatin TOP POWDER* 15 GM BTL TOPICAL SCH (21:13)
[2017-02-15 21:24] LABS: Albumin 3.4 g/dL (3.2-5.2); BUN/Creatinine Ratio 12.5 (8-20); Calcium 8.7 mg/dL (8.6-10.3); EGFR African American 68.7 (>60); EGFR Non-African American 53.5 (>60); Globulin 2.7 g/dL (2-4); Magnesium 2.1 mg/dL (1.9-2.7); Potassium 3.5 mmol/L (3.5-5.0); Total Bilirubin 0.5 mg/dL (0.2-1.0); Total Protein 6.1 g/dL (6.4-8.9)
--- NOTE | 2017-02-15 21:53 | RAD ---
Indication: Seizure; unresponsive. Chest pain, troponin elevation. Comparison: October 15, 2016 CT. Technique: Noncontrast CT vertex of skull through foramen magnum. Report: Negative for sulcal effacement. Negative for hydrocephalus. Patent basal cisterns. 4.5 cm AP region of encephalomalacia at the junction of the LEFT temporal and parietal lobes similar to the prior exam. No new region of marsh matter white matter obscuration or mass effect. Decreased density in the periventricular and subcortical white matter while non-specific is most likely due to chronic microangiopathy. Negative for intra or extra-axial hemorrhage. Atherosclerotic calcification of the intracranial internal carotid arteries. Unremarkable orbital contents. No suspicious calvarial or skull base lesions. Clear visualized paranasal sinuses and hypoplastic mastoid air spaces. IMPRESSION: 1. Encephalomalacia most consistent with sequela of previous ischemic infarct at the LEFT temporoparietal junction similar to the prior exam. 2. Stigmata of chronic small vessel ischemic disease as well as central intracranial atherosclerotic calcification. 3. Negative for CT stigmata of acute ischemic stroke, intracranial hemorrhage, or mass effect.
[2017-02-15 22:18] LABS: Troponin I 0.1 ng/mL (<0.04)
[2017-02-15] MEDS ORDERED: Iodixanol* (CONTRAST) 320 MG/ML 100 ML SDV IV ONE (22:46)
--- NOTE | 2017-02-15 23:02 | HP ---
HISTORY AND PHYSICAL: DATE OF ADMISSION: 02/15/17 PRIMARY CARE PHYSICIAN: Through the [facility]. CHIEF COMPLAINT: Chest pain. HISTORY OF PRESENT ILLNESS: Mr. 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 The patient states he was in his usual state of health until yesterday around 4 a.m. where he states he developed left-sided chest pain, which began at rest. He states he feels like a "pulling pain" occasionally radiating down the left arm and causing some numbness and tingling in his fingers. The patient denies any nausea or vomiting. Did report associated diaphoresis with chest pain. The patient is not very active, but could not think of anything that exacerbated or alleviated the pain. He did not take any additional medications at home. He states the pain was present overnight and persisted into this morning. Denies any trauma to the chest. Does think perhaps it got worse with deep breathing. Denies any palpitations at home although feels like he may have developed some in the past few minutes. EMS was called and the patient received nitro x2, which he states completely resolved the pain. He has had no recent fever, chills, shortness of breath, rhinorrhea, abdominal pain, dysuria, diarrhea, constipation, hematuria, blood in the stool. He has been having good p.o. intake as of late. He gets around the home with a scooter as he has significant physical deficits from his strokes in the past. PAST MEDICAL HISTORY: Hypertension, hyperlipidemia, PTSD, depression, seizure disorder, which is psychogenic versus absence under the care of Dr. Abraham, prior CVAs, both hemorrhagic and ischemic, the patient reports 6. GERD, CKD 3, DVT. PAST SURGICAL HISTORY: Left knee arthroscopy, left skin graft on his arm. Implantable cardiac surgeon in December 2016. HOME MEDICATIONS: 1. Miconazole 2% topical 3 times daily as needed for itching. 2. Protonix 40 mg by mouth 2 times daily. 3. Meclizine 12.5 mg by mouth 2 times daily as needed for dizziness. 4. [place] 5/325 one tablet by mouth 3 times daily as needed for pain. 5. Zolpidem 5 mg by mouth at bedtime as needed for insomnia. 6. Topamax 150 mg by mouth 2 times daily. 7. Potassium chloride 20 mEq by mouth 2 times daily. 8. Multivitamin 1 tablet by mouth daily. 9. Keppra 500 mg by mouth in the morning, 1000 mg by mouth at nighttime. 10. Lisinopril 10 mg by mouth 2 times daily. 11. Gabapentin 100 mg by mouth 3 times daily as needed for pain. 12. Flonase 2 sprays in both nares daily as needed for congestion. 13. Cymbalta 80 mg by mouth daily. 14. Plavix 75 mg by mouth daily. 15. Capsaicin 0.1% topical 3 times daily as needed for pain. 16. Atorvastatin 40 mg by mouth 2 times daily. 17. Atenolol 12.5 mg by mouth daily. 18. Aspirin 81 mg by mouth daily. ALLERGIES: The patient has no known drug allergies. FAMILY HISTORY: Significant for brother with a stroke and sister with a stroke. SOCIAL HISTORY: The patient is a [place] War vet. Denies any alcohol abuse, alcohol abuse, or illicit drug use. REVIEW OF SYSTEMS: A 12-point review of systems negative except for that as noted in the HPI. PHYSICAL EXAMINATION GENERAL: The patient is middle-aged, slightly disheveled male appears older than stated age, lying in bed, in no apparent distress. VITAL SIGNS: On admission, temperature 97.2, heart rate of 63, respiratory rate of 14, O2 saturation 97% on room air, blood pressure 131/77. HEENT: Head: Normocephalic, atraumatic. Eyes: Pupils equal, round, and reactive to light and accommodation. Anicteric sclerae. ENT: Moist mucous membranes. NECK: No cervical adenopathy. LUNGS: Clear to auscultation bilaterally. No wheezes, rales, or rhonchi. CARDIOVASCULAR: Regular rate and rhythm. S1 and S2 present. No murmurs, gallops, or rubs. ABDOMEN: Soft, obese, nontender, and nondistended. Bowel sounds are positive. EXTREMITIES: No cyanosis, clubbing, or edema. NEURO: The patient is alert, oriented x3. Some residual aphasia from this previous stroke as well as some right-sided weakness, right lower extremity greater than right upper extremity, which seems to be the patient's baseline. LABORATORY DATA AND DIAGNOSTIC STUDIES: White blood cell count of 6.2, hematocrit of 40, platelets of 167. Sodium 139, potassium 4.1, chloride of 113 , carbon dioxide 21, BUN of 16, creatinine of 1.31, glucose of 97. Lactic acid of 0.7. LFTs within normal limits. Troponin 0.05. EKG personally reviewed, shows normal sinus rhythm with some T wave flattening and inversion in the septal leads, which seems new. Chest x-ray personally reviewed shows no acute disease. ASSESSMENT AND PLAN: Chest pain in this 61-year-old male with a past medical history of hypertension, hyperlipidemia, multiple strokes, seizure disorder, depression, gastroesophageal reflux disease, chronic kidney disease 3. 1. Chest pain. The patient reports ongoing chest pain for over 12 hours with his minimally elevated troponin. It seems that a cardiac is probably less likely; however, the patient is certainly a high cardiovascular risk with this previous stroke history and other risk factors. He also seems to possibly have some EKG changes as far as the T wave flattening and inversions in the septal leads. For now, we will continue to trend his troponins, monitor the patient on telemetry. We will get a repeat EKG tomorrow morning. Continue aspirin, Plavix, and atorvastatin. We will get a nuclear cardiac stress test tomorrow morning. I spoke to Dr. Rankin, who placed the patient's implantable cardiac surgeon. He will review the data to see if there are any recent arrhythmias or anything concerning. 2. Hypertension. Continue home atenolol and lisinopril. 3. Hyperlipidemia. Continue home statin. 4. Seizure disorder. Continue Topamax and Keppra. 5. Gastroesophageal reflux disease. Continue PPI. 6. Chronic kidney disease 3. Creatinine continues to be at baseline. 7. Cerebrovascular accident. The patient does not seem to have any new neurological symptoms. Continue aspirin, Plavix, and statin. 8. DVT prophylaxis, heparin subcu. 9. Code status. The patient is a full code. TIME SPENT: Total time spent on this admission 40 minutes with over half the time spent [id number] with the patient in counseling and coordinating care. [id number]/[id number] #: [id number] MTDD
[2017-02-15] MEDS: HYDROcodone/ACETAMIN 5-325 MG* 1 TAB PO PRN (23:16)
[2017-02-15] MEDS ORDERED: Heparin VIAL(*) 5000 UNITS/ML VIAL (FIVE THOUSAND) IV SCH (23:45)
[2017-02-15] MEDS ORDERED: Heparin DRIP 25,000 UNITS(*) 25,000 UNITS/500 ML BAG IV SCH (23:45)
--- NOTE | 2017-02-15 23:46 | PN ---
Progress Note - Progress Note Date of Service: 02/15/17 Note: Spoke to imaging motor vehicle or caravan salesperson. B/L PE's. Started heparin drip.
--- NOTE | 2017-02-16 07:49 | RAD ---
HISTORY: Chest pain, elevated troponin COMPARISONS: None TECHNIQUE: Multiple contiguous axial CT scans of the chest were obtained after the administration of nonionic intravenous contrast, timed to the pulmonary arterial phase of contrast enhancement.. Coronal and sagittal multiplanar reformations are also submitted for review. FINDINGS: NECK AND THYROID: The lower neck and thyroid are unremarkable. CHEST WALL: There is no lower cervical, axillary, or supraclavicular lymphadenopathy by size criteria. HEART AND PERICARDIUM: The heart is unremarkable. AORTA AND PULMONARY VASCULATURE: There are filling defects noted within the segmental pulmonary arterial branches of the right middle and lower lobes. The aorta is unremarkable. MEDIASTINUM: There is no mediastinal lymphadenopathy by size criteria. RUBY: There is no hilar lymphadenopathy by size criteria. AIRWAY AND ESOPHAGUS: The airway is unremarkable, without endobronchial filling defect. The esophagus is grossly normal. LUNG PARENCHYMA: The lungs are clear. PLEURA: No pleural abnormalities are noted. UPPER ABDOMEN: Parapelvic cysts are noted of the left kidney BONES AND SOFT TISSUES: Mild degenerative changes are noted. OTHER: None. IMPRESSION: 1. PULMONARY ARTERIAL FILLING DEFECTS OF THE RIGHT MID AND LOWER LOBES CONSISTENT WITH PULMONARY EMBOLI. 2. PRELIMINARY FINDINGS WERE DISCUSSED WITH DR. AMARO AT APPROXIMATELY 11:[address] MCCAIN.
--- NOTE | 2017-02-16 08:30 | PN ---
Subjective Date of Service: 02/16/17 Interval History: Patient seen and examined at bedside. Mr. Fay denies chest pain, shortness of breath. He does endorse some mild back pain that he attributes to lying in bed. No acute complaints at this time. Telemetry: Sinus bradycardia 58-60 Family History: Unchanged from Admission Social History: Unchanged from Admission Past Medical History: Unchanged from Admission Objective Active Medications: Acetaminophen (Tylenol Tab*) 650 mg PO Q6H PRN PRN Reason: pain/fever Hydrocodone Bitart/Acetaminophen ([place] 5-325 Tab*) 1 tab PO TID PRN PRN Reason: PAIN Last Admin: 02/15/17 23:16 Dose: 1 tab Aspirin (Aspirin Ec Low Dose*) 81 mg PO DAILY [facility]ERRE Atenolol (Tenormin Tab*) 12.5 mg PO DAILY [facility]ERRE Atorvastatin Calcium (Lipitor*) 40 mg PO BID [facility] Last Admin: 02/15/17 21:12 Dose: 40 mg Clopidogrel Bisulfate (Plavix Tab*) 75 mg PO DAILY [facility] Duloxetine HCl (Cymbalta Cap*) 80 mg PO DAILY JEAN-PIERRE Fluticasone Propionate (Flonase Nasal [place] 50mcg*) 2 spray BOTH NARES DAILY PRN PRN Reason: CONGESTION Gabapentin (Neurontin Cap(*)) 100 mg PO TID PRN PRN Reason: PAIN Heparin Sodium (Porcine) (Heparin Vial(*)) 0 units IV .PER PROTOCOL JEAN-PIERRE PRN Reason: Protocol Heparin Sodium/Dextrose (Heparin Drip 25,000 Units(*)) 25,000 units in 500 mls @ 0 mls/hr IV .NO INITIAL BOLUS JEAN-PIERRE; As Directed PRN Reason: Protocol Last Admin: 02/16/17 00:06 Dose: 37 mls/hr Levetiracetam (Keppra Tab*) 500 mg PO QAM [facility]AN-PIERRE Levetiracetam (Keppra Tab*) 1,000 mg PO QPM [facility]-PIERRE Last Admin: 02/15/17 18:05 Dose: 1,000 mg Lisinopril (Prinivil Tab*) 10 mg PO BID [facility]AN-PIERRE Last Admin: 02/15/17 21:09 Dose: 10 mg Meclizine HCl (Antivert Tab*) 12.5 mg PO BID PRN PRN Reason: DIZZINESS Morphine Sulfate (Morphine Inj (Syringe)*) 2 mg IV Q4H PRN PRN Reason: PAIN - MILD Multivitamins/Minerals (Theragran/Minerals Tab*) 1 tab PO DAILY [facility] Nystatin (Nystatin Top Powder*) 1 applic TOPICAL BID [facility] Last Admin: 02/15/17 21:13 Dose: 1 applic Pantoprazole Sodium (Protonix Tab (Nf)) 40 mg PO BID [facility] Last Admin: 02/15/17 21:10 Dose: 40 mg Potassium Chloride (Klor Con Er Tab*) 20 meq PO BID [facility] Last Admin: 02/15/17 21:09 Dose: 20 meq Topiramate (Topamax(*)) 150 mg PO BID [facility] Last Admin: 02/15/17 21:11 Dose: 150 mg Zolpidem Tartrate (Ambien Tab*) 5 mg PO BEDTIME PRN PRN Reason: SLEEP Vital Signs 02/15/17 02/15/17 02/15/17 15:00 15:30 15:54 Temperature 98.4 F Pulse Rate 61 62 Respiratory 13 18 Rate Blood Pressure 145/83 139/86 127/109 (mmHg) O2 Sat by Pulse 97 100 Oximetry 02/15/17 02/15/17 02/15/17 15:56 16:00 16:10 Temperature Pulse Rate Respiratory 16 12 7 Rate Blood Pressure (mmHg) O2 Sat by Pulse Oximetry 02/15/17 02/15/17 02/15/17 16:20 16:30 16:40 Temperature Pulse Rate Respiratory 11 10 12 Rate Blood Pressure (mmHg) O2 Sat by Pulse Oximetry 02/15/17 02/15/17 02/15/17 16:50 17:00 17:10 Temperature Pulse Rate Respiratory 11 13 12 Rate Blood Pressure (mmHg) O2 Sat by Pulse Oximetry 02/15/17 02/15/17 02/15/17 17:20 17:30 17:40 Temperature Pulse Rate Respiratory 11 6 22 Rate Blood Pressure (mmHg) O2 Sat by Pulse Oximetry 02/15/17 02/15/17 02/15/17 19:11 20:46 21:44 Temperature 98.0 F 97.4 F Pulse Rate 69 62 Respiratory 20 17 Rate Blood Pressure 145/94 149/93 (mmHg) O2 Sat by Pulse 96 Oximetry 02/15/17 02/15/17 02/16/17 23:16 23:20 00:48 Temperature 98.4 F 98.9 F Pulse Rate 61 71 Respiratory 18 16 16 Rate Blood Pressure 181/102 133/74 (mmHg) O2 Sat by Pulse 100 98 Oximetry 02/16/17 02/16/17 02/16/17 01:14 01:16 01:18 Temperature Pulse Rate 58 Respiratory 20 22 Rate Blood Pressure 168/94 (mmHg) O2 Sat by Pulse 99 Oximetry 02/16/17 02/16/17 02/16/17 02:18 03:12 03:16 Temperature 98.1 F Pulse Rate 69 Respiratory 18 16 18 Rate Blood Pressure 124/66 (mmHg) O2 Sat by Pulse 98 Oximetry Oxygen Devices in Use Now: Nasal Cannula Appearance: Middle aged male, appears older than stated age, lying in bed, NAD Eyes: No Scleral Icterus, PERRLA Ears/Nose/Mouth/Throat: Clear Oropharnyx, Mucous Membranes Moist Neck: NL Appearance and Movements; NL JVP Respiratory: Symmetrical Chest Expansion and Respiratory Effort, Clear to Auscultation Cardiovascular: NL Sounds; No Murmurs; No JVD, RRR Abdominal: NL Sounds; No Tenderness; No Distention Extremities: No Edema, No Clubbing, Cyanosis Neurological: Alert and Oriented x 3, - - aphasia and right sided weakness, appears to be patient's baseline secondary to previous CVAs Lines/Tubes/Other Access: Clean, Dry and Intact Peripheral IV Nutrition: Taking PO's Result Diagrams: 02/16/17 08:39 02/16/17 08:39 Assess/Plan/Problems-Billing Assessment: Mr. Fay is a 61 yo male with a PMH of previous CVAs (6), HTN, HLD, PTSD, depression, seizure disorder, GERD, CKD stage 3, and DVT who presented to the ED on 02/15/17 with concern for chest pain. - Patient Problems (1) Pulmonary emboli Code(s): I26.99 - OTHER PULMONARY EMBOLISM WITHOUT ACUTE COR PULMONALE Comment : CTA chest shows right mid and lower lobe pulmonary emboli. Continue heparin gtt. Patient currently on 2Lnc with O2 sats 98-100% Denies CP, SOB at this time. Obtain echocardiogram, check venous dopplers of BLE Plan to transition to NOAC or warfarin, will touch base with neurology, given patient's hx of multiple strokes (pt has hx of hemorrhagic stroke, date unknown) . (2) Chest pain Code(s): R07.9 - CHEST PAIN, UNSPECIFIED Comment: Currently denies chest pain Troponin 0.1 overnight, continue to trend to peak. T-wave inversions seen in leads V1-V3. Will hold on stress test at this time, given patient has new PE. Obtain echocardiogram. Patient will need ischemic cardiac evaluation once stabilized. (3) HLD (hyperlipidemia) Code(s): E78.5 - HYPERLIPIDEMIA, UNSPECIFIED Comment: Continue atorvastatin 40 mg BID. (4) Hypertension Code(s): I10 - ESSENTIAL (PRIMARY) HYPERTENSION Comment: SBP 130-160s. Continue atenolol and lisinopril. 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 Seizure precautions (6) Depression Code(s): F32.9 - MAJOR DEPRESSIVE DISORDER, SINGLE EPISODE, UNSPECIFIED Comment: With hx of PTSD Continue duloxetine. (7) GERD (gastroesophageal reflux disease) Code(s): K21.9 - GASTRO-ESOPHAGEAL REFLUX DISEASE WITHOUT ESOPHAGITIS Comment : Continue PPI. (8) CKD (chronic kidney disease), stage III Code(s): N18.3 - CHRONIC KIDNEY DISEASE, STAGE 3 (MODERATE) Comment: Creatinine within baseline. (9) History of CVA (cerebrovascular accident) Code(s): Z86.73 - PRSNL HX OF TIA (TIA), AND CEREB INFRC W/O RESID DEFICITS Comment: History of 6 previous strokes, per patient. Reported to have one hemorrhagic stroke prior to 2013 Most recent in August 2016 Patient has residual right sided weakness and some aphasia (10) DVT prophylaxis Comment: Heparin gtt Status and Disposition: OBV to inpatient admit. Anticipate LOS >2 days.
[2017-02-16 08:56] LABS: Hematocrit 39 % (42-52); Hemoglobin 12.8 g/dl (14.0-18.0); Mean Corpuscular HGB Conc 33 g/dl (31-36); Mean Corpuscular Hemoglobin 30 pg (27-31); Mean Corpuscular Volume 90 fL (80-94); Mean Platelet Volume 9 um3 (7.4-10.4); Red Blood Count 4.26 10^6/ul (4.0-5.4); Red Cell Distribution Width 13 % (10.5-15); White Blood Count 7.3 10^3/ul (3.5-10.8)
[2017-02-16] MEDS ORDERED: Clopidogrel TAB* 75 MG PO SCH (09:00)
[2017-02-16] MEDS ORDERED: levETIRAcetam TAB* 500 MG PO SCH (09:00)
[2017-02-16] MEDS ORDERED: Perflutren Lipid Microsphere* 3 ML VIAL ONE (09:14)
--- NOTE | 2017-02-16 10:06 | ED ---
Kvng Chaudhry Auryana, scribed for Andrew Hein MD on 02/15/17 at 1208 . HPI Chest Pain - HPI Summary HPI Summary: 61 year old male presents with constant chest pain starting yesterday. At the time of onset, the patient was resting yesterday. The patient reported that the pain radiated down his left arm. He denies any SOB. His pain was completely alleviated with EMS treatment - NTG. reports that he had an appointment with Dr. Rankin scheduled for tomorrow. 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 Dr. Grande is his instrument technologist but sees multiple cardiologists in the office - per . - History of Current Complaint Chief Complaint: EDChestPainROMI Time Seen by Provider: 02/15/17 12:05 Hx Obtained From: Patient Onset/Duration: Started Days Ago - 1, Still Present Timing: Constant Initial Severity: Moderate Current Severity: None Pain Intensity: 0 Pain Scale Used: 0-10 Numeric Chest Pain Location: Diffuse Chest Pain Radiates: Yes Chest Pain Radiates To:: Arm - left arm Alleviating Factor(s): NTG 123 Associated Signs and Symptoms: Positive: Negative. Negative: Shortness of Breath Related History: Similar Episode/Dx as: - see HPI - Additional Pertinent History Primary Care Physician: HANSEL - Allergy/Home Medications Allergies/Adverse Reactions: Allergies Allergy/AdvReac Type Severity Reaction Status Date / Time No Known Allergies Allergy Verified 10/05/13 12:30 Home Medications: Home Medications Capsaicin 0.1 % TOPICAL TID PRN 02/15/17 [History Confirmed 02/15/17] Miconazole Nitrate (Topical) [Lotrimin AF] 2 % TOPICAL BID PRN 02/15/17 [ History Confirmed 02/15/17] Multivitamins/Minerals TAB* [Theragran/minerals TAB*] 1 tab PO DAILY 02/15/17 [ History Confirmed 02/15/17] levETIRAcetam TAB* [Keppra TAB*] 1,000 mg PO QPM 02/15/17 [History Confirmed ] PMH/Surg Hx/FS Hx/Imm Hx Endocrine/Hematology History: Reports: Hx Anticoagulant Therapy Cardiovascular History: Reports: Hx Angina, Hx Coronary Artery Disease, Hx Hypertension Denies: Hx Pacemaker/ICD GI History: Reports: Hx Gastroesophageal Reflux Disease History: Reports: Other Problems/Disorders - Frequent urination, undiagnosed. Musculoskeletal History: Reports: Other Musculoskeletal History - Left knee surgery. Sensory History: Reports: Hx Contacts or Glasses Denies: Hx Hearing Aid Opthamlomology History: Reports: Hx Contacts or Glasses Neurological History: Reports: Hx Seizures - epilepsy vs. psychogenic seizures Denies: Other Neuro Impairments/Disorders Psychiatric History: Reports: Hx Anxiety, Hx Depression, Hx Suicide Attempt Denies: Hx Panic Disorder - Surgical History Surgery Procedure, Year, and Place: LEFT ACL REPAIR Infectious Disease History: Denies: Hx Clostridium Difficile, Hx Hepatitis, Hx Human Immunodeficiency Virus (HIV), Hx of Known/Suspected MRSA, Hx Shingles, Hx Tuberculosis, Hx Known/ Suspected VRE, Hx Known/Suspected VRSA, History Other Infectious Disease, Traveled Outside the in Last 30 Days - Family History Known Family History: Negative: Cardiac Disease, Diabetes - Social History Occupation: Retired Lives: With Family Alcohol Use: None Hx Substance Use: No Substance Use Type: Reports: None Hx Tobacco Use: No Smoking Status (MU): Never Smoked Tobacco Have You Smoked in the Last Year: No Review of Systems Constitutional: Negative Negative: Fever, Chills Eyes: Negative Negative: Erythema ENT: Negative Negative: Sore Throat Positive: Chest Pain - now resolved Respiratory: Negative Negative: Shortness Of Breath, Cough Gastrointestinal: Negative Negative: Abdominal Pain, Vomiting, Nausea Genitourinary: Negative Negative: dysuria, hematuria Musculoskeletal: Negative Negative: Myalgia, Edema Skin: Negative Negative: Rash Neurological: Negative, Other - NO DIZZINESS Psychological: Normal All Other Systems Reviewed And Are Negative: Yes Physical Exam - Summary Physical Exam Summary: Constitutional: Well-developed, Well-nourished, Alert. (-) Distressed Skin: Warm, Dry HENT: Normocephalic; Atraumatic Eyes: Conjunctiva normal Neck: Musculoskeletal ROM normal neck. (-) JVD, (-) Stridor, (-) Tracheal deviation Cardio: Rhythm regular, rate normal, Heart sounds normal; Intact distal pulses; The pedal pulses are 2+ and symmetric. Radial pulses are 2+ and symmetric. (-) Murmur Pulmonary/Chest wall: Effort normal. (-) Respiratory distress, (-) Wheezes, (-) Rales Abd: Soft, (-) Tenderness, (-) Distension, (-) Guarding, (-) Rebound Musculoskeletal: (-) Edema Lymph: (-) Cervical adenopathy Neuro: Alert, Oriented x3 Psych: Mood and affect Normal Triage Information Reviewed: Yes Vital Signs Reviewed: Yes Diagnostics - Laboratory Result Diagrams: 02/15/17 12:23 02/15/17 12:23 Lab Statement: Any lab studies that have been ordered have been reviewed, and results considered in the medical decision making process. - Radiology CXR Xray Interpretation: No Acute Changes Radiology Interpretation Completed By: Radiologist - EKG 12:05 EKG Interpretation: sinus rhythm @ 60 bpm, no STEMI, t wave inversions in V2, V3 EKG Comparison: Other - new since october 2016 Re-Evaluation - Re-Evaluation First Eval Re-Evaluation Time: 14:22 Change: Worse Comment: PATIENT HAS CHEST PAIN 09/04 Chest Pain Course/Dx - Course Assessment/Plan: 61 year old male presents with constant chest pain starting yesterday. At the time of onset, the patient was resting yesterday. The patient reported that the pain radiated down his left arm. He denies any SOB. His pain was completely alleviated with EMS treatment - NTG. reports that he had an appointment with Dr. Rankin scheduled for tomorrow. 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 Dr. Grande is his instrument technologist but sees multiple cardiologists in the office - per . Test results show Hgb 13.3, Hct 40, chloride 113, CO2 21, creatinine 1.31, and troponin 0.05. LFT are WNL. EKG-sinus rhythm @ 60 bpm, no STEMI, t wave inversions in V2, V3. CXR-NAD. I discussed the patient with Dr. Kent ( hospitalist) who accepts the patient for admission. Patient is agreeable with the plan. DDx: ACS, PNA, PE, and gastric reflux. Dx: Chest pain unspecified and EKG abnormality. - Chest Pain Differential Diagnosis/HQI/PQRI: ACS, Pulmonary Embolism, Other: - PNA, gastric reflux - Diagnoses Provider Diagnoses: Chest pain, unspecified, EKG abnormalities - Provider Notifications Discussed Care Of Patient With: Al Kent Time Discussed With Above Provider: 14:22 - AGREES TO ADMIT PATIENT. Discharge - Discharge Plan Condition: Stable Disposition: ADMITTED TO [facility] documentation as recorded by the Kvng heart Auryana accurately reflects the service I personally performed and the decisions made by me, Andrew Hein MD.
[2017-02-16] MEDS: Lisinopril TAB* 10 MG PO SCH ×2 (10:17→21:47)
[2017-02-16] MEDS: Atorvastatin* 40 MG TAB PO SCH ×2 (10:17→21:47)
[2017-02-16] MEDS: Multivitamins/Minerals TAB PO SCH (10:17)
[2017-02-16] MEDS: Aspirin EC Low Dose* 81 MG TAB.EC PO SCH (10:17)
[2017-02-16] MEDS: Potassium Chlor TAB* 20 MEQ TAB.ER PO SCH ×2 (10:18→21:46)
[2017-02-16] MEDS: Nystatin TOP POWDER* 15 GM BTL TOPICAL SCH ×2 (10:18→21:47)
[2017-02-16] MEDS: CMCS: Pantoprazole TAB (NF) 40 MG TAB PO SCH ×2 (10:18→21:47)
[2017-02-16] MEDS: HYDROcodone/ACETAMIN 5-325 MG* 1 TAB PO PRN ×2 (10:18→21:46)
[2017-02-16] MEDS: Atenolol TAB* 25 MG PO SCH (10:19)
[2017-02-16] MEDS: Topiramate TAB(*) 100 MG PO SCH ×2 (10:20→21:46)
--- NOTE | 2017-02-16 10:40 | ECHO ---
Patient: BRENDAN WEEMS [facility] Rec#: [id number] : 1955 Date: 02/16/2017 Age: 61y Height: 180.34 cm / 71.0 in Weight: 138.35 kg / 304.9 lbs Sex: M BSA: 2.52 Room#: 452 Admit Date#: 02/15/2017 Type: Inpatient Loc: patient room Referring: Oly Alba Reading: Rasheed Sawant MD Signal Constructor: Syl Manjarrez RDCS,RDMS CC: Luigi Pillai MD Transthoracic Echocardiogram Indication: Pulmonary Embolism BP: 124/66 HR: 49 Rhythm: Bradycardia Findings History: HTN, HLD, DVT, CKD, multiple CVAs, obesity Technical Comments: The study quality is poor. Completed 1000 Left Ventricle: The left ventricular chamber size is normal. Mild concentric left ventricular hypertrophy is observed. The estimated ejection fraction is 55-60%. Visually estimated LVEF is closer to 60%. Abnormal left ventricular diastolic filling is observed, consistent with impaired relaxation. Left Atrium: The left atrium is moderately dilated. Right Ventricle: The right ventricle wall thickness is moderately increased. The right ventricular cavity size is normal. The right ventricular global systolic function is normal. Right Atrium: The right atrium is mild to moderately dilated. Aortic Valve: There is no evidence of aortic valve thickening. There is no evidence of aortic regurgitation. There is no evidence of aortic stenosis. Mitral Valve: The mitral valve leaflets appear normal. There is no evidence of mitral regurgitation. There is no evidence of mitral stenosis. Tricuspid Valve: The tricuspid valve leaflets are normal. There is trace tricuspid regurgitation. Unable to estimate the right ventricular systolic pressure. Pulmonic Valve: The pulmonic valve structure is not well visualized. Pericardium: There is no significant pericardial effusion. Aorta: The ascending aorta is not well visualized. There is no dilatation of the aortic arch. There is mild dilatation of the aortic root. Pulmonary Artery: The main pulmonary artery is not well visualized. Venous: The venous system is not well visualized. Contrast: Definity was used to optimize study. A total of 4 ml was used Conclusions The study quality is poor. Assessment of LV systolic function solely determined by contrast evaluation Overall LV systolic function appears normal at 55-60%. The right ventricular cavity size is normal. There is no evidence of aortic regurgitation. The right ventricular global systolic function is normal (in limited views with contrast). . Measurements Name Value Normal Range RVIDd (AP) 2D 3.3 cm (0.9 - 2.6) RVDdMajor (2D) 4.2 cm (2.2 - 4.4) RAd ISD 4CH 5.6 cm (3.4 - 4.9) RA (A4C)W 4.9 cm (2.9 - 4.6) IVSd (2D) 1.3 cm (0.6 - 1) LVPWd (2D) 1.2 cm (0.6 - 1) LVIDd (2D) 3.7 cm (3.6 - 5.4) LVIDs (2D) 3 cm - LV FS (2D) 20 % (25 - 45) Aortic Annulus 2.3 cm (1.4 - 2.6) Ao root diameter (2D) 3.7 cm (2.1 - 3.5) Aortic arch 3 cm (1.8 - 3.4) LA dimension (AP) 2D 4.2 cm (2.3 - 3.8) LAd ISD 4CH 7 cm (2.9 - 5.3) LA ISD 4CH W 4.8 cm (2.5 - 4.5) Name Value Normal Range LA ESV SP 4CH (A/L) 110.15 ml - LA ESV SP 2CH (A/L) 92.66 ml - LA ESV BP (A/L) 112.62 ml - LA ESV BP (A/L) index 44.5 ml/m2 - LA ESV SP 4CH (MOD) 104.66 ml - LA ESV SP 2CH (MOD) 87.54 ml - Name Value Normal Range MV E-wave Vmax 0.5 m/sec - MV deceleration time 246 msec - MV A-wave Vmax 0.7 m/sec - MV E:A ratio 0.7 ratio - LV septal e' Vmax 0.04 m/sec - LV lateral e' Vmax 0.06 m/sec - LV E:e' septal ratio 12.5 ratio - LV E:e' lateral ratio 8.4 ratio - Name Value Normal Range AV Vmax 1.2 m/sec - AV VTI 22.7 cm - AV peak gradient 6 mmHg - AV mean gradient 2.9 mmHg - LVOT Vmax 0.8 m/sec - LVOT VTI 19.1 cm - LVOT peak gradient 2.6 mmHg - LVOT mean gradient 1.6 mmHg - MOSES Vmax 0.7 m/sec - Name Value Normal Range RAP 8 mmHg - Name Value Normal Range PV Vmax 0.6 m/sec - PV peak gradient 1.4 mmHg -
--- NOTE | 2017-02-16 11:00 | RAD ---
Indication: Pulmonary emboli Duplex Doppler sonography of the deep venous system of both lower extremities was performed. Bilaterally the common femoral veins, proximal greater saphenous veins, proximal deep femoral veins, femoral veins, popliteal veins, posterior tibial veins appear patent and compressible. The right peroneal veins are noncompressible and are consistent with deep venous thrombosis. IMPRESSION: Deep venous thrombosis involving the peroneal veins of the right lower extremity. No evidence of deep venous thrombosis in the left lower extremity.
[2017-02-16] MEDS: DULoxetine DR CAP* 20 MG CAP.DR PO SCH (15:12)
[2017-02-16] MEDS: Enoxaparin(*) 150 MG/ML 1 ML SYRINGE SUBCUT SCH (15:12)
[2017-02-16] MEDS ORDERED: Warfarin TAB(*) 5 MG PO ONE (17:00)
[2017-02-16] MEDS: Morphine INJ* 2 MG/ML 1 ML SYRINGE IV PRN ×2 (17:47→22:22)
--- NOTE | 2017-02-16 18:01 | PN ---
Hospitalist Progress Note Patient seen in consultation by neurology (please refer to Dr. Abraham's notes) . Per Dr. Abraham, patient has hx of psychogenic non-epileptiform seizures. EEG done following episode this AM (results pending). Patient's Keppra stopped per neurology, as he was supposed to be weaned off the medication as an outpatient. Per patient's , patient does not consistently take his medications and often refuses to take doses. At this time, continue topiramate. Patient has had continued episodes of blank staring x 3 this afternoon, with events lasting 30- 45 seconds on average. Patient's spouse reports that these are consistent with home events. Patient also c/o chest pain that only occurs when he eats - continue PPI and prn analgesia. Continue to trend troponins. Patient started on BID Lovenox and warfarin (given patient's non-compliance with medications).
[2017-02-16] MEDS ORDERED: clonazePAM TAB(*) 0.5 MG PO PRN (18:07)
--- NOTE | 2017-02-16 20:07 | CONS ---
NEUROLOGY CONSULTATION: DATE OF CONSULT: 02/16/17 LOCATION: He is an inpatient in room 452. REFERRING PROVIDER: Oly Alba NP PRIMARY CARE PHYSICIAN: Dr. Pillai, [place] [facility]. CHIEF COMPLAINT: Chest pain, shortness of breath, history of stroke, history of psychogenic non-epileptic seizures. HISTORY OF PRESENT ILLNESS: Dandy Fay is a 61-year-old man well-known to me from prior evaluation for cerebrovascular disease and seizure-like episodes. He presented with chest pain on 02/15/17, and his evaluation is notable for a positive CT angiogram of the chest for pulmonary emboli. I was asked to consult regarding his seizure-like episodes, which have continued during this hospitalization as well as potential anticoagulation in the setting of pulmonary emboli and history of cerebrovascular disease. 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 He has never had a documented actual epileptic event. He has had 2 EEGs in our hospital system over the years, both of which were normal. He has had some episodes of unresponsiveness here in the hospital, which are brief with rapid recovery. When I had seen him as outpatient, I had recommended tapering of Keppra and using Topamax monotherapy for his migraines. In addition, he has a history of post traumatic stress disorder and depression, I thought he would be served off Keppra. There were some questions as to whether or not he might have had a hemorrhagic stroke in the remote past. He was hospitalized last August with an ischemic stroke in the posterior division of the left middle cerebral artery, which was suspicious for a cardioembolic stroke for which no specific cardioembolic mechanism was identified. He was discharged on Plavix and aspirin. I had seen him years ago, when he presented with right-sided weakness and I gave him tPA. His imaging after that was negative other than an old pontine infarction. He had a stroke when he lived in [place] over a decade ago. It resulted in right -sided weakness and dysarthria and difficulty walking. Reviewing his MRI scans from this past August shows the old pontine infarction as well as the acute left middle cerebral artery infarction. There is no evidence of hemosiderin deposition in the brainstem and so there is no clear evidence he has ever had any intracranial hemorrhage. Also, his and Dandy are not aware of any intracranial hemorrhage, but just said he has had strokes before. PAST MEDICAL HISTORY: Otherwise notable for hyperlipidemia, hypertension, gastroesophageal reflux, chronic renal insufficiency. MEDICATIONS AT THE TIME OF ADMISSION: Consist of: 1. Keppra 500 mg 1 p.o. b.i.d. 2. Gabapentin 300 mg t.i.d. 3. Cymbalta 80 mg p.o. q. day. 4. [place] 5/325 one p.o. t.i.d. p.r.n. joint pain. 5. Topiramate 150 mg p.o. b.i.d. 6. Lisinopril 10 mg p.o. q. day. 7. Plavix 75 mg p.o. q. day. 8. Aspirin 81 mg p.o. q. day. 9. Atorvastatin 80 mg p.o. q. day. 10. Atenolol 12.5 mg p.o. q. day. ALLERGIES: He does not have any drug allergies listed. SOCIAL HISTORY: He lives at home with his . He does not drink alcohol. He is a [employer] vet. REVIEW OF SYSTEMS: He is intermittently compliant with his medications according to his . Some nights, he just does want to take medicines, sometimes he only takes it during the day either. He has depression and spends much of the day in bed and does not walk much. When he does walk, he uses a walker at home. He has not had any recent falls. He has been losing weight, but neither he nor his know how much. At the time of my evaluation, he is not having any chest pain. PHYSICAL EXAM: He is obese and well hydrated. Temperature 98.3 orally, blood pressure 140/80, heart rate is in the 60s and regular. Lungs are clear anterolaterally. Heart is in a regular rate and rhythm without murmurs. I cannot feel carotid pulses, but there are no bruits auscultated. Oral mucosa is moist and atraumatic. Neurologically, pupils react equally from 3 to 2 mm. Funduscopic exam reveals sharp discs and no hemorrhages bilaterally. Eye movements and visual babb are normal. Facial musculature is notable for minimal flattening of the right nasolabial fold. Voice is soft and a little bit hoarse, but clear. Tongue protrudes in the midline and palate rises fairly symmetrically. Motor exam reveals mild spastic catch in the right arm and a right pronator drift. He has mild hip flexor weakness bilaterally and symmetrically. Finger taps are very slow in the right hand. There is no tremor. He has had reflex in the right arm and the right knee. Plantar is extensor on the right and equivocal on the left. I did not attempt to ambulate him. He is a subdued, but alert and cooperative. He is oriented to person, place, and time. Language is fluent. LABORATORY DATA: Includes elevated D-dimer at 821 on 02/15/17. Troponins are elevated at 0.04 yesterday and 0.55 this morning. Creatinine elevated yesterday at 1.36 and chemistries are otherwise unremarkable. IMPRESSION AND PLAN: Impression is that of a remote left middle cerebral artery stroke and an even more remote brainstem stroke. There is no clear evidence if he has ever had an intracranial hemorrhage. I think at this point, the risks of not anticoagulating this man with pulmonary emboli far outweigh the risk of anticoagulation. Given his history of intermittent compliance, at best it is probably worth considering warfarin as opposed to a novel anticoagulant as it can be monitored. If he does present to the emergency room with an acute stroke and his INR is low enough, we could still use tPA. Regarding his psychogenic non- epileptic seizures, I do not think he needs to be on levetiracetam. Given his history of migraines, we can continue Topamax, but at this point there is no evidence he actually has epilepsy. With his mood disorder, I think he would be better served off [facility] as well and so made that recommendation as well. [id number]/[facility] #: [id number] [facility]
[2017-02-17] MEDS: Enoxaparin(*) 150 MG/ML 1 ML SYRINGE SUBCUT SCH ×2 (03:27→14:29)
[2017-02-17 05:16] LABS: Hematocrit 40 % (42-52); Hemoglobin 13.2 g/dl (14.0-18.0); Mean Corpuscular HGB Conc 33 g/dl (31-36); Mean Corpuscular Hemoglobin 30 pg (27-31); Mean Corpuscular Volume 90 fL (80-94); Mean Platelet Volume 9 um3 (7.4-10.4); Red Blood Count 4.38 10^6/ul (4.0-5.4); Red Cell Distribution Width 13 % (10.5-15); White Blood Count 7.2 10^3/ul (3.5-10.8)
[2017-02-17] MEDS: Aspirin EC Low Dose* 81 MG TAB.EC PO SCH (08:21)
[2017-02-17] MEDS: Atenolol TAB* 25 MG PO SCH (08:21)
[2017-02-17] MEDS: Potassium Chlor TAB* 20 MEQ TAB.ER PO SCH ×2 (08:21→20:57)
[2017-02-17] MEDS: DULoxetine DR CAP* 20 MG CAP.DR PO SCH (08:21)
[2017-02-17] MEDS: Atorvastatin* 40 MG TAB PO SCH ×2 (08:21→20:56)
[2017-02-17] MEDS: CMCS: Pantoprazole TAB (NF) 40 MG TAB PO SCH ×2 (08:21→20:56)
[2017-02-17] MEDS: Multivitamins/Minerals TAB PO SCH (08:21)
[2017-02-17] MEDS: Topiramate TAB(*) 100 MG PO SCH ×2 (08:22→20:57)
[2017-02-17] MEDS: Lisinopril TAB* 10 MG PO SCH ×2 (08:22→20:56)
[2017-02-17] MEDS: Nystatin TOP POWDER* 15 GM BTL TOPICAL SCH ×2 (08:23→20:57)
--- NOTE | 2017-02-17 10:03 | PN ---
Subjective Date of Service: 02/17/17 Interval History: Patient seen and examined at bedside. Reports feeling better than yesterday Denies any further chest pain, difficulty breathing. States he has not been up to walk around yet Telemetry: SR 60s Family History: Unchanged from Admission Social History: Unchanged from Admission Past Medical History: Unchanged from Admission Objective Active Medications: Acetaminophen (Tylenol Tab*) 650 mg PO Q6H PRN PRN Reason: pain/fever Hydrocodone Bitart/Acetaminophen ([place] 5-325 Tab*) 1 tab PO TID PRN PRN Reason: PAIN Last Admin: 02/16/17 21:46 Dose: 1 tab Aspirin (Aspirin Ec Low Dose*) 81 mg PO DAILY [facility] Last Admin: 02/17/17 08:21 Dose: 81 mg Atenolol (Tenormin Tab*) 12.5 mg PO DAILY [facility] Last Admin: 02/17/17 08:21 Dose: 12.5 mg Atorvastatin Calcium (Lipitor*) 40 mg PO BID [facility] Last Admin: 02/17/17 08:21 Dose: 40 mg Clonazepam (Klonopin Tab(*)) 0.5 mg PO ONCE PRN PRN Reason: AGITATION/ANXIETY Stop: 02/17/17 18:06 Duloxetine HCl (Cymbalta Cap*) 80 mg PO DAILY [facility] Last Admin: 02/17/17 08:21 Dose: 80 mg Enoxaparin Sodium (Lovenox(*)) 140 mg SUBCUT Q12H [facility] Last Admin: 02/17/17 03:27 Dose: 140 mg Fluticasone Propionate (Flonase Nasal [place] 50mcg*) 2 spray BOTH NARES DAILY PRN PRN Reason: CONGESTION Gabapentin (Neurontin Cap(*)) 100 mg PO TID PRN PRN Reason: PAIN Lisinopril (Prinivil Tab*) 10 mg PO BID [facility] Last Admin: 02/17/17 08:22 Dose: 10 mg Meclizine HCl (Antivert Tab*) 12.5 mg PO BID PRN PRN Reason: DIZZINESS Morphine Sulfate (Morphine Inj (Syringe)*) 2 mg IV Q4H PRN PRN Reason: PAIN - MILD Last Admin: 02/16/17 22:22 Dose: 2 mg Multivitamins/Minerals (Theragran/Minerals Tab*) 1 tab PO DAILY [facility] Last Admin: 02/17/17 08:21 Dose: 1 tab Nystatin (Nystatin Top Powder*) 1 applic TOPICAL BID [facility] Last Admin: 02/17/17 08:23 Dose: 1 applic Pantoprazole Sodium (Protonix Tab (Nf)) 40 mg PO BID [facility] Last Admin: 02/17/17 08:21 Dose: 40 mg Pharmacy Profile Note (Coumadin Per Pharmacy*) 1 note FOLLOW UP .PER PHARMACY PROTOC [facility] PRN Reason: Protocol Potassium Chloride (Klor Con Er Tab*) 20 meq PO BID [facility] Last Admin: 02/17/17 08:21 Dose: 20 meq Topiramate (Topamax(*)) 150 mg PO BID [facility] Last Admin: 02/17/17 08:22 Dose: 150 mg Warfarin Sodium (Coumadin Tab(*)) 5 mg PO 1700 ONE Stop: 02/17/17 17:01 Zolpidem Tartrate (Ambien Tab*) 5 mg PO BEDTIME PRN PRN Reason: SLEEP Vital Signs 02/17/17 02/17/17 07:37 07:52 Temperature 98.2 F Pulse Rate 58 Respiratory 18 18 Rate Blood Pressure 119/78 (mmHg) O2 Sat by Pulse 98 Oximetry Oxygen Devices in Use Now: None Appearance: Male patient, appears older than stated age, lying in bed, NAD Eyes: No Scleral Icterus Ears/Nose/Mouth/Throat: Clear Oropharnyx, Mucous Membranes Moist Neck: NL Appearance and Movements; NL JVP Respiratory: Symmetrical Chest Expansion and Respiratory Effort, Clear to Auscultation Cardiovascular: NL Sounds; No Murmurs; No JVD, RRR Abdominal: NL Sounds; No Tenderness; No Distention Extremities: No Edema, No Clubbing, Cyanosis Neurological: Alert and Oriented x 3, - - chronic right sided weakness, aphasia secondary to previous CVAs Lines/Tubes/Other Access: Clean, Dry and Intact Peripheral IV Nutrition: Taking PO's Result Diagrams: 02/17/17 04:57 02/16/17 08:39 Assess/Plan/Problems-Billing Assessment: Mr. Fay is a 61 yo male with a PMH of previous CVAs (6), HTN, HLD, PTSD, depression, seizure disorder, GERD, CKD stage 3, and DVT who presented to the ED on 02/15/17 with concern for chest pain. - Patient Problems (1) Pulmonary emboli Code(s): I26.99 - OTHER PULMONARY EMBOLISM WITHOUT ACUTE COR PULMONALE Comment : CTA chest shows right mid and lower lobe pulmonary emboli. Continue warfarin with Lovenox bridge Denies CP, SOB at this time, on room air No RV dysfunction, no wall motion abnormalities Patient with right peroneal vein DVT (2) Chest pain Code(s): R07.9 - CHEST PAIN, UNSPECIFIED Comment: Currently denies chest pain Troponin peaked 0.97 overnight T-wave inversions seen in leads V1-V4. Will hold on stress test at this time, given patient has new PE. Echocardiogram shows LVEF 55-60%, normal RV. Patient will need ischemic cardiac evaluation once stabilized. (3) Seizure disorder Code(s): G40.909 - EPILEPSY, UNSP, NOT INTRACTABLE, WITHOUT STATUS EPILEPTICUS Comment: Appreciate neurology consult Patient with intermittent episodes of unresponsive staring EEG negative - patient with known psychogenic nonepileptiform seizures Continue home topiramate (also treats migraines). Keppra discontinued per neurology. (4) HLD (hyperlipidemia) Code(s): E78.5 - HYPERLIPIDEMIA, UNSPECIFIED Comment: Continue atorvastatin 40 mg BID. (5) Hypertension Code(s): I10 - ESSENTIAL (PRIMARY) HYPERTENSION Comment: Normotensive Continue atenolol and lisinopril. (6) Depression Code(s): F32.9 - MAJOR DEPRESSIVE DISORDER, SINGLE EPISODE, UNSPECIFIED Comment: With hx of PTSD Continue duloxetine. (7) GERD (gastroesophageal reflux disease) Code(s): K21.9 - GASTRO-ESOPHAGEAL REFLUX DISEASE WITHOUT ESOPHAGITIS Comment : Continue PPI. (8) CKD (chronic kidney disease), stage III Code(s): N18.3 - CHRONIC KIDNEY DISEASE, STAGE 3 (MODERATE) Comment: Creatinine within baseline. (9) History of CVA (cerebrovascular accident) Code(s): Z86.73 - PRSNL HX OF TIA (TIA), AND CEREB INFRC W/O RESID DEFICITS Comment: History of 6 previous strokes, per patient. Reported to have one hemorrhagic stroke prior to 2013 Most recent in August 2016 Patient has residual right sided weakness and some aphasia (10) DVT prophylaxis Comment: INR subtherapeutic Continue warfarin with Lovenox bridge Status and Disposition: Inpatient admit. Anticipate LOS >2 days. PT consult and begin dc planning.
[2017-02-17] MEDS ORDERED: Warfarin TAB(*) 5 MG PO ONE (17:00)
--- NOTE | 2017-02-18 02:09 | EEG ---
ELECTROENCEPHALOGRAPHY: DATE OF STUDY/DICTATION: 02/17/17 - ROOM #452 LOCATION: He is an inpatient in room 452. REFERRING PROVIDER: Oly Alba NP CLINICAL HISTORY: History of episodes unresponsiveness, history of migraines, posttraumatic stress disorder, and psychogenic nonepileptic spells. MEDICATIONS: Include: 1. Keppra. 2. Topamax. 3. Prinivil. 4. Lipitor. 5. Cymbalta. 6. Tenormin. 7. Aspirin. 8. Plavix. 9. Gabapentin. 10. Antivert. EEG DESCRIPTION: This 16-channel EEG is remarkable for artifact for the first minute or so of the recording. The patient is described as not responding intermittently. When readable portions appear, there is a normal background rhythm with alpha frequencies and a posterior derivations of about 8 to 8.5 cycles per second and moderate voltage bifrontal beta rhythms. The patient has had several cautions regarding orientation and is fairly consistently disoriented to time and place, saying it to be April and that he is in [place]. He otherwise follows commands at the request of the wastewater technician through this study. Normal background waking rhythms continue. There are no other clinical events described. There are times that the patient seems to be unable to answer questions, but that does not seem to last more than a few seconds. There are no epileptiform features in this recording. INTERPRETATION: Essentially normal EEG including while the patient is disoriented and has delays in responding to questions. There are no epileptiform discharges noted. [id number]/[facility] #: [id number] [facility]
[2017-02-18] MEDS: Enoxaparin(*) 150 MG/ML 1 ML SYRINGE SUBCUT SCH ×2 (03:37→14:44)
[2017-02-18 05:35] LABS: Hematocrit 39 % (42-52); Hemoglobin 12.7 g/dl (14.0-18.0); Mean Corpuscular HGB Conc 33 g/dl (31-36); Mean Corpuscular Hemoglobin 30 pg (27-31); Mean Corpuscular Volume 91 fL (80-94); Mean Platelet Volume 10 um3 (7.4-10.4); Red Blood Count 4.25 10^6/ul (4.0-5.4); Red Cell Distribution Width 13 % (10.5-15)
[2017-02-18 05:51] LABS: BUN/Creatinine Ratio 16.4 (8-20); Calcium 8.8 mg/dL (8.6-10.3); EGFR African American 73.7 (>60); EGFR Non-African American 57.3 (>60); Potassium 3.8 mmol/L (3.5-5.0)
[2017-02-18] MEDS: DULoxetine DR CAP* 20 MG CAP.DR PO SCH (07:54)
[2017-02-18] MEDS: Topiramate TAB(*) 100 MG PO SCH ×2 (07:54→21:52)
[2017-02-18] MEDS: Potassium Chlor TAB* 20 MEQ TAB.ER PO SCH ×2 (07:56→21:51)
[2017-02-18] MEDS: Multivitamins/Minerals TAB PO SCH (07:56)
[2017-02-18] MEDS: Aspirin EC Low Dose* 81 MG TAB.EC PO SCH (07:57)
[2017-02-18] MEDS: Atorvastatin* 40 MG TAB PO SCH ×2 (07:57→21:51)
[2017-02-18] MEDS: Lisinopril TAB* 10 MG PO SCH ×2 (07:58→21:52)
[2017-02-18] MEDS: CMCS: Pantoprazole TAB (NF) 40 MG TAB PO SCH ×2 (07:58→21:52)
[2017-02-18] MEDS: Nystatin TOP POWDER* 15 GM BTL TOPICAL SCH ×2 (08:00→21:52)
[2017-02-18] MEDS: Atenolol TAB* 25 MG PO SCH (09:41)
--- NOTE | 2017-02-18 09:54 | PN ---
Subjective Date of Service: 02/18/17 Interval History: Patient seen and examined at bedside. Mr. Fay is OOB to chair, finishing breakfast. He has poor recollection, stating, "I see a heart doctor but I don't know which one." He often defers to his . He denies any chest pain, SOB, n/v or other complaint. We discussed the importance of medication compliance, especially the Lovenox and warfarin prior to discharge. He wants his home health aide to learn, but we discussed that this would need to be discussed with case management. He will discuss with his . Family History: Unchanged from Admission Social History: Unchanged from Admission Past Medical History: Unchanged from Admission Objective Active Medications: Acetaminophen (Tylenol Tab*) 650 mg PO Q6H PRN PRN Reason: pain/fever Hydrocodone Bitart/Acetaminophen ([place] 5-325 Tab*) 1 tab PO TID PRN PRN Reason: PAIN Last Admin: 02/16/17 21:46 Dose: 1 tab Aspirin (Aspirin Ec Low Dose*) 81 mg PO DAILY [facility] Last Admin: 02/18/17 07:57 Dose: 81 mg Atenolol (Tenormin Tab*) 12.5 mg PO DAILY [facility] Last Admin: 02/18/17 09:41 Dose: 12.5 mg Atorvastatin Calcium (Lipitor*) 40 mg PO BID [facility] Last Admin: 02/18/17 07:57 Dose: 40 mg Duloxetine HCl (Cymbalta Cap*) 80 mg PO DAILY [facility] Last Admin: 02/18/17 07:54 Dose: 80 mg Enoxaparin Sodium (Lovenox(*)) 140 mg SUBCUT Q12H [facility] Last Admin: 02/18/17 03:37 Dose: 140 mg Fluticasone Propionate (Flonase Nasal [place] 50mcg*) 2 spray BOTH NARES DAILY PRN PRN Reason: CONGESTION Gabapentin (Neurontin Cap(*)) 100 mg PO TID PRN PRN Reason: PAIN Lisinopril (Prinivil Tab*) 10 mg PO BID [facility] Last Admin: 02/18/17 07:58 Dose: 10 mg Meclizine HCl (Antivert Tab*) 12.5 mg PO BID PRN PRN Reason: DIZZINESS Morphine Sulfate (Morphine Inj (Syringe)*) 2 mg IV Q4H PRN PRN Reason: PAIN - MILD Last Admin: 02/16/17 22:22 Dose: 2 mg Multivitamins/Minerals (Theragran/Minerals Tab*) 1 tab PO DAILY [facility] Last Admin: 02/18/17 07:56 Dose: 1 tab Nystatin (Nystatin Top Powder*) 1 applic TOPICAL BID [facility] Last Admin: 02/18/17 08:00 Dose: Not Given Pantoprazole Sodium (Protonix Tab (Nf)) 40 mg PO BID [facility] Last Admin: 02/18/17 07:58 Dose: 40 mg Pharmacy Profile Note (Coumadin Per Pharmacy*) 1 note FOLLOW UP .PER PHARMACY PROTOC [facility] PRN Reason: Protocol Potassium Chloride (Klor Con Er Tab*) 20 meq PO BID [facility] Last Admin: 02/18/17 07:56 Dose: 20 meq Topiramate (Topamax(*)) 150 mg PO BID [facility] Last Admin: 02/18/17 07:54 Dose: 150 mg Warfarin Sodium (Coumadin Tab(*)) 6 mg PO 1700 ONE Stop: 02/18/17 17:01 Zolpidem Tartrate (Ambien Tab*) 5 mg PO BEDTIME PRN PRN Reason: SLEEP Vital Signs 02/17/17 02/17/17 02/17/17 10:56 10:59 11:00 Temperature 98.2 F Pulse Rate 55 Respiratory 8 12 10 Rate Blood Pressure 114/72 (mmHg) O2 Sat by Pulse 97 Oximetry 02/17/17 02/17/17 02/17/17 11:10 11:20 11:30 Temperature Pulse Rate Respiratory 4 13 9 Rate Blood Pressure (mmHg) O2 Sat by Pulse Oximetry 02/17/17 02/17/17 02/17/17 11:40 11:50 12:00 Temperature Pulse Rate Respiratory 9 10 10 Rate Blood Pressure (mmHg) O2 Sat by Pulse Oximetry 02/17/17 02/17/17 02/17/17 12:10 12:20 12:30 Temperature Pulse Rate Respiratory 14 10 16 Rate Blood Pressure (mmHg) O2 Sat by Pulse Oximetry 02/17/17 02/17/17 02/17/17 12:40 12:50 13:00 Temperature Pulse Rate Respiratory 8 10 9 Rate Blood Pressure (mmHg) O2 Sat by Pulse Oximetry 02/17/17 02/17/17 02/17/17 13:10 13:20 13:30 Temperature Pulse Rate Respiratory 9 13 13 Rate Blood Pressure (mmHg) O2 Sat by Pulse Oximetry 02/17/17 02/17/17 02/17/17 13:40 13:50 14:00 Temperature Pulse Rate Respiratory 11 11 12 Rate Blood Pressure (mmHg) O2 Sat by Pulse Oximetry 02/17/17 02/17/17 02/17/17 14:10 14:20 14:30 Temperature Pulse Rate Respiratory 11 11 10 Rate Blood Pressure (mmHg) O2 Sat by Pulse Oximetry 02/17/17 02/17/17 02/17/17 14:40 14:50 15:00 Temperature Pulse Rate Respiratory 12 13 10 Rate Blood Pressure (mmHg) O2 Sat by Pulse Oximetry 02/17/17 02/17/17 02/17/17 15:10 15:14 15:20 Temperature 97.8 F Pulse Rate 60 Respiratory 7 16 16 Rate Blood Pressure 116/69 (mmHg) O2 Sat by Pulse 98 Oximetry 02/17/17 02/17/17 02/17/17 15:30 15:40 15:50 Temperature Pulse Rate Respiratory 8 12 11 Rate Blood Pressure (mmHg) O2 Sat by Pulse Oximetry 02/17/17 02/17/17 02/17/17 19:20 19:51 23:44 Temperature 98.4 F 98.1 F Pulse Rate 64 65 Respiratory 18 16 16 Rate Blood Pressure 148/103 134/75 (mmHg) O2 Sat by Pulse 100 97 Oximetry 02/18/17 02/18/17 03:54 08:22 Temperature 98.5 F 98.6 F Pulse Rate 69 67 Respiratory 16 14 Rate Blood Pressure 133/76 140/74 (mmHg) O2 Sat by Pulse 98 98 Oximetry Oxygen Devices in Use Now: None Appearance: Older male patient, OOB to chair, NAD Eyes: No Scleral Icterus, PERRLA Ears/Nose/Mouth/Throat: Clear Oropharnyx, Mucous Membranes Moist Neck: NL Appearance and Movements; NL JVP Respiratory: Symmetrical Chest Expansion and Respiratory Effort, Clear to Auscultation Cardiovascular: NL Sounds; No Murmurs; No JVD, RRR Abdominal: NL Sounds; No Tenderness; No Distention Extremities: No Edema Neurological: - - Alert, oriented to self, place, mildly disoriented to time Lines/Tubes/Other Access: Clean, Dry and Intact Peripheral IV Nutrition: Taking PO's Result Diagrams: 02/18/17 05:10 02/18/17 05:10 Assess/Plan/Problems-Billing Assessment: Mr. Fay is a 61 yo male with a PMH of previous CVAs (6), HTN, HLD, PTSD, depression, seizure disorder, GERD, CKD stage 3, and DVT who presented to the ED on 02/15/17 with concern for chest pain. - Patient Problems (1) Pulmonary emboli Code(s): I26.99 - OTHER PULMONARY EMBOLISM WITHOUT ACUTE COR PULMONALE Comment : CTA chest shows right mid and lower lobe pulmonary emboli. Continue warfarin with Lovenox bridge Denies CP, SOB at this time, on room air No RV dysfunction, no wall motion abnormalities Patient with right peroneal vein DVT (2) Chest pain Code(s): R07.9 - CHEST PAIN, UNSPECIFIED Comment: Currently denies chest pain Troponin peaked 0.97 overnight T-wave inversions seen in leads V1-V4. Will hold on stress test at this time, given patient has new PE. Echocardiogram shows LVEF 55-60%, normal RV. Patient will need ischemic cardiac evaluation as outpatient. (3) Seizure disorder Code(s): G40.909 - EPILEPSY, UNSP, NOT INTRACTABLE, WITHOUT STATUS EPILEPTICUS Comment: Appreciate neurology consult Patient with intermittent episodes of unresponsive staring EEG negative - patient with known psychogenic nonepileptiform seizures Continue home topiramate (also treats hx of migraines). Keppra discontinued per neurology. (4) HLD (hyperlipidemia) Code(s): E78.5 - HYPERLIPIDEMIA, UNSPECIFIED Comment: Continue atorvastatin 40 mg BID. (5) Hypertension Code(s): I10 - ESSENTIAL (PRIMARY) HYPERTENSION Comment: Normotensive Continue atenolol and lisinopril. (6) Depression Code(s): F32.9 - MAJOR DEPRESSIVE DISORDER, SINGLE EPISODE, UNSPECIFIED Comment: With hx of PTSD Continue duloxetine. (7) GERD (gastroesophageal reflux disease) Code(s): K21.9 - GASTRO-ESOPHAGEAL REFLUX DISEASE WITHOUT ESOPHAGITIS Comment : Continue PPI. (8) CKD (chronic kidney disease), stage III Code(s): N18.3 - CHRONIC KIDNEY DISEASE, STAGE 3 (MODERATE) Comment: Creatinine within baseline. (9) History of CVA (cerebrovascular accident) Code(s): Z86.73 - PRSNL HX OF TIA (TIA), AND CEREB INFRC W/O RESID DEFICITS Comment: History of 6 previous strokes, per patient. Reported to have one hemorrhagic stroke prior to 2013 Most recent in August 2016 Patient has residual right sided weakness and some aphasia (10) DVT prophylaxis Comment: INR subtherapeutic Continue warfarin with Lovenox bridge Status and Disposition: Inpatient admit. Anticipate LOS >2 days. PT consult and begin dc planning.
[2017-02-18] MEDS ORDERED: Warfarin TAB(*) 6 MG PO ONE (17:00)
[2017-02-19] MEDS: Enoxaparin(*) 150 MG/ML 1 ML SYRINGE SUBCUT SCH (03:36)
[2017-02-19 05:14] LABS: Hematocrit 39 % (42-52); Mean Corpuscular HGB Conc 33 g/dl (31-36); Mean Corpuscular Hemoglobin 30 pg (27-31); Mean Corpuscular Volume 90 fL (80-94); Mean Platelet Volume 10 um3 (7.4-10.4); Red Blood Count 4.34 10^6/ul (4.0-5.4); Red Cell Distribution Width 13 % (10.5-15)
[2017-02-19] MEDS: Aspirin EC Low Dose* 81 MG TAB.EC PO SCH (07:47)
[2017-02-19] MEDS: CMCS: Pantoprazole TAB (NF) 40 MG TAB PO SCH (07:47)
[2017-02-19] MEDS: Atenolol TAB* 25 MG PO SCH (07:48)
[2017-02-19] MEDS: Multivitamins/Minerals TAB PO SCH (07:48)
[2017-02-19] MEDS: HYDROcodone/ACETAMIN 5-325 MG* 1 TAB PO PRN (07:48)
[2017-02-19] MEDS: Lisinopril TAB* 10 MG PO SCH (07:48)
[2017-02-19] MEDS: Topiramate TAB(*) 100 MG PO SCH (07:49)
[2017-02-19] MEDS: Atorvastatin* 40 MG TAB PO SCH (07:49)
[2017-02-19] MEDS: DULoxetine DR CAP* 20 MG CAP.DR PO SCH (07:49)
[2017-02-19] MEDS: Potassium Chlor TAB* 20 MEQ TAB.ER PO SCH (07:49)
[2017-02-19] MEDS: Nystatin TOP POWDER* 15 GM BTL TOPICAL SCH (07:52)
--- NOTE | 2017-02-19 09:20 | PN ---
Subjective Date of Service: 02/19/17 Interval History: Patient seen and examined at bedside. No acute complaints, other than eagerness to go home. Denies CP, SOB. Has not had chest pain for over 2 days. Feels like his ambulation is better after working with PT. Discussed the importance of taking medication as prescribed in order to prevent further complications. Pt verbalized understanding. Family History: Unchanged from Admission Social History: Unchanged from Admission Past Medical History: Unchanged from Admission Objective Active Medications: Acetaminophen (Tylenol Tab*) 650 mg PO Q6H PRN PRN Reason: pain/fever Hydrocodone Bitart/Acetaminophen ([place] 5-325 Tab*) 1 tab PO TID PRN PRN Reason: PAIN Last Admin: 02/19/17 07:48 Dose: 1 tab Aspirin (Aspirin Ec Low Dose*) 81 mg PO DAILY [facility] Last Admin: 02/19/17 07:47 Dose: 81 mg Atenolol (Tenormin Tab*) 12.5 mg PO DAILY [facility] Last Admin: 02/19/17 07:48 Dose: 12.5 mg Atorvastatin Calcium (Lipitor*) 40 mg PO BID [facility] Last Admin: 02/19/17 07:49 Dose: 40 mg Duloxetine HCl (Cymbalta Cap*) 80 mg PO DAILY [facility] Last Admin: 02/19/17 07:49 Dose: 80 mg Enoxaparin Sodium (Lovenox(*)) 140 mg SUBCUT Q12H [facility] Last Admin: 02/19/17 03:36 Dose: 140 mg Fluticasone Propionate (Flonase Nasal [place] 50mcg*) 2 spray BOTH NARES DAILY PRN PRN Reason: CONGESTION Gabapentin (Neurontin Cap(*)) 100 mg PO TID PRN PRN Reason: PAIN Lisinopril (Prinivil Tab*) 10 mg PO BID [facility] Last Admin: 02/19/17 07:48 Dose: 10 mg Meclizine HCl (Antivert Tab*) 12.5 mg PO BID PRN PRN Reason: DIZZINESS Morphine Sulfate (Morphine Inj (Syringe)*) 2 mg IV Q4H PRN PRN Reason: PAIN - MILD Last Admin: 02/16/17 22:22 Dose: 2 mg Multivitamins/Minerals (Theragran/Minerals Tab*) 1 tab PO DAILY [facility] Last Admin: 02/19/17 07:48 Dose: 1 tab Nystatin (Nystatin Top Powder*) 1 applic TOPICAL BID [facility] Last Admin: 02/19/17 07:52 Dose: 1 applic Pantoprazole Sodium (Protonix Tab (Nf)) 40 mg PO BID [facility] Last Admin: 02/19/17 07:47 Dose: 40 mg Pharmacy Profile Note (Coumadin Per Pharmacy*) 1 note FOLLOW UP .PER PHARMACY PROTOC [facility] PRN Reason: Protocol Potassium Chloride (Klor Con Er Tab*) 20 meq PO BID [facility] Last Admin: 02/19/17 07:49 Dose: 20 meq Topiramate (Topamax(*)) 150 mg PO BID [facility] Last Admin: 02/19/17 07:49 Dose: 150 mg Zolpidem Tartrate (Ambien Tab*) 5 mg PO BEDTIME PRN PRN Reason: SLEEP Vital Signs 02/18/17 02/18/17 02/19/17 16:25 20:00 00:25 Temperature 98.2 F 98.4 F Pulse Rate 57 58 Respiratory 20 18 16 Rate Blood Pressure 125/68 147/82 (mmHg) O2 Sat by Pulse 97 100 Oximetry 02/19/17 07:48 Temperature Pulse Rate Respiratory 20 Rate Blood Pressure (mmHg) O2 Sat by Pulse Oximetry Oxygen Devices in Use Now: None Appearance: Male patient, sitting up in bed, eating breakfast, NAD Eyes: No Scleral Icterus, PERRLA Ears/Nose/Mouth/Throat: Clear Oropharnyx, Mucous Membranes Moist Neck: NL Appearance and Movements; NL JVP Respiratory: Symmetrical Chest Expansion and Respiratory Effort, Clear to Auscultation Cardiovascular: NL Sounds; No Murmurs; No JVD, RRR Abdominal: NL Sounds; No Tenderness; No Distention Extremities: No Edema Neurological: Alert and Oriented x 3, - - baseline right sided weakness and mild aphasia Lines/Tubes/Other Access: Clean, Dry and Intact Peripheral IV Nutrition: Taking PO's Result Diagrams: 02/19/17 04:55 02/18/17 05:10 Assess/Plan/Problems-Billing Assessment: Mr. Fay is a 61 yo male with a PMH of previous CVAs (6), HTN, HLD, PTSD, depression, seizure disorder, GERD, CKD stage 3, and DVT who presented to the ED on 02/15/17 with concern for chest pain. - Patient Problems (1) Pulmonary emboli Code(s): I26.99 - OTHER PULMONARY EMBOLISM WITHOUT ACUTE COR PULMONALE Comment : CTA chest shows right mid and lower lobe pulmonary emboli. Continue warfarin with Lovenox bridge Denies CP, SOB at this time, on room air No RV dysfunction, no wall motion abnormalities Patient with right peroneal vein DVT Spoke with [facility], who will follow-up with patient re: INR on Wednesday (2) Chest pain Code(s): R07.9 - CHEST PAIN, UNSPECIFIED Comment: Currently denies chest pain Troponin peaked 0.97 overnight T-wave inversions seen in leads V1-V4. Will hold on stress test at this time, given patient has new PE. Echocardiogram shows LVEF 55-60%, normal RV. Patient will need ischemic cardiac evaluation as outpatient; appt made for cardiology follow-up next week. (3) Seizure disorder Code(s): G40.909 - EPILEPSY, UNSP, NOT INTRACTABLE, WITHOUT STATUS EPILEPTICUS Comment: Appreciate neurology consult Patient with intermittent episodes of unresponsive staring EEG negative - patient with known psychogenic nonepileptiform seizures Continue home topiramate (also treats hx of migraines). Keppra discontinued per neurology. (4) HLD (hyperlipidemia) Code(s): E78.5 - HYPERLIPIDEMIA, UNSPECIFIED Comment: Continue atorvastatin 40 mg BID. (5) Hypertension Code(s): I10 - ESSENTIAL (PRIMARY) HYPERTENSION Comment: Mostly normotensive Continue atenolol and lisinopril. (6) Depression Code(s): F32.9 - MAJOR DEPRESSIVE DISORDER, SINGLE EPISODE, UNSPECIFIED Comment: With hx of PTSD Continue duloxetine. (7) GERD (gastroesophageal reflux disease) Code(s): K21.9 - GASTRO-ESOPHAGEAL REFLUX DISEASE WITHOUT ESOPHAGITIS Comment : Continue PPI. (8) CKD (chronic kidney disease), stage III Code(s): N18.3 - CHRONIC KIDNEY DISEASE, STAGE 3 (MODERATE) Comment: Creatinine within baseline. (9) History of CVA (cerebrovascular accident) Code(s): Z86.73 - PRSNL HX OF TIA (TIA), AND CEREB INFRC W/O RESID DEFICITS Comment: History of 6 previous strokes, per patient. Reported to have one hemorrhagic stroke prior to 2013 Most recent in August 2016 Patient has residual right sided weakness and some aphasia (10) DVT prophylaxis Comment: INR subtherapeutic Continue warfarin with Lovenox bridge Status and Disposition: Inpatient admit. Dc to home with home services.
[2017-02-19 10:35] VITALS: BP 167/89
[2017-02-19] MEDS ORDERED: Enoxaparin(*) 150 MG/ML 1 ML SYRINGE SUBCUT SCH (11:00)
[2017-02-19] MEDS ORDERED: Warfarin TAB(*) 7.5 MG PO ONE (17:00)
--- NOTE | 2017-02-22 04:14 | DS ---
AMENDED REPORT NOW INCLUDES COSIGNER DESIGNATION - ESIGNED BEFORE ADJUSTMENTS CC: Dr. Luigi Pillai; Dr. Abraham; Dr. Maxi Sanchez * MEDICINE DISCHARGE SUMMARY: DATE OF ADMISSION: 02/15/17 DATE OF DISCHARGE: 02/19/17 ATTENDING PHYSICIAN: Dr. Ivelisse Delcid * (as dictated by Brittni Kaminski NP). CONSULTING PHYSICIAN: Dr. Juan Carlos Abraham. PRIMARY CARE PROCESS MANAGER: Dr. Maxi Sanchez. PRIMARY CARE PHYSICIAN: Dr. Luigi Pillai at the [facility]. PRIMARY DISCHARGE DIAGNOSES: 1. Pulmonary emboli. 2. Deep venous thrombosis to right peroneal vein. 3. Chest pain. 4. Abnormal EKG. 5. Psychogenic nonepileptiform seizure events. SECONDARY DISCHARGE DIAGNOSES: 1. Seizure disorder, history of psychogenic nonepileptiform seizures. 2. Hypertension. 3. Hyperlipidemia. 4. Posttraumatic stress disorder. 5. Depression. 6. History of cerebrovascular accidents x6. 7. Gastroesophageal reflux disease. 8. Chronic kidney disease, stage 3. 9. Previous history of deep venous thrombosis. MEDICATIONS AT DISCHARGE: 1. Miconazole 2% topical b.i.d. p.r.n. 2. Pantoprazole 40 mg b.i.d. 3. Meclizine 12.5 mg b.i.d. p.r.n. 4. [place] 5/325 one tab t.i.d. p.r.n. 5. Zolpidem 5 mg at bedtime p.r.n. 6. Topiramate 150 mg b.i.d. 7. Potassium chloride 20 mEq b.i.d. 8. Multivitamin 1 tab daily. 9. Lisinopril 10 mg b.i.d. 10. Gabapentin 100 mg t.i.d. p.r.n. 11. Fluticasone nasal spray, 2 sprays both nares daily p.r.n. 12. Duloxetine 80 mg daily. 13. Capsaicin 0.1% topical t.i.d. p.r.n. 14. Atorvastatin 40 mg b.i.d. 15. Atenolol 12.5 mg daily. 16. Aspirin 81 mg daily. New medications at discharge: 1. Warfarin 6 mg daily on Wednesday, Wednesday, and Wednesday with repeat INR on Wednesday for a dosing dependent on INR results. 2. Lovenox 140 mg subcu q.12 hours as a bridge until the patient reaches therapeutic INR. Medications discontinued: 1. Keppra, which has been discontinued per Neurology. 2. Clopidogrel, as the the patient has started warfarin, which is also under the recommendation of Neurology. DIAGNOSTIC TESTING: During the patient's admission: 1. Chest x-ray from 02/15/17: No radiographic evidence for acute cardiopulmonary abnormality on this portable chest x-ray. 2. CTA of the chest and thorax. Impression: a. Pulmonary arterial filling defects of the right mid and lower lobes consistent with pulmonary emboli. b. Pulmonary findings were discussed with Dr. Miller. 3. CT of the brain on 02/15/17, impression: a. encephalomalacia most consistent with sequelae of previous ischemic infarct to the left temporoparietal junction similar to the prior exam. b. stigmata of chronic small vessel ischemic disease as well as central intracranial atherosclerotic calcification. c. Negative for CT stigmata of acute ischemic stroke, intracranial hemorrhage, or mass effect. 4. Transthoracic echocardiogram. Conclusions: The study quality is poor. Assessment of LV systolic function fully determined by contrast evaluation. Overall, LV systolic function appears normal at 55% to 60%. The right ventricular cavity size is normal. There is no evidence of aortic regurgitation. The right ventricular global systolic function is normal (in limited views of the contrast). 5. Venous Doppler study from 02/16/17, impression: Deep venous thrombosis involving the peroneal veins of the right lower extremity. No evidence of deep venous thrombosis of the left lower extremity. 6. EEG interpretation: Essentially normal EEG including while the patient is disoriented and has delays in responding to questions. There are no epileptiform discharges noted. HOSPITAL COURSE OF STAY: For full details, please refer to the H and P provided by Dr. Kent on 02/15/17. In summary, Mr. Fay is a 61-year-old male patient with a past medical history as previously stated, who presented to the hospital with concern for chest pain. The patient woke up around 4 a.m. on 02/15/17 with a left- sided chest pain, which began at rest. He reported a pulling pain that occasionally radiated the left arm and causing numbness and tingling of his fingers as well as associated diaphoresis. The pain persisted into the morning, and he thought that it did get worse with deep breathing. The patient's pain resolved with nitro. The patient was admitted for further monitoring. A CTA of the chest was done, which revealed the patient's PE. There was original plan for stress test as part of an ischemic evaluation, as he does have some EKG changes, which include T-wave inversions and flattening in the septal leads, which appears new compared to the October 2016 EKG. The patient also had an elevated troponin, which did peak at 0.97. However, given that the patient was found to have new pulmonary emboli, as well as DVT, we held on the stress test, and the patient has been referred to his outpatient glass finisher to follow up and to obtain an outpatient stress test when medically appropriate. The patient during his first few days of stay had approximately 5 episodes of unresponsive staring spells that lasted approximately 30 to 60 seconds in duration. After the events, the patient appeared confused but was appropriately responding. His admission records show that he has a history of seizure disorder , which includes nonepileptiform psychogenic seizures with absence seizures. After one of the events, we were able to obtain an EEG, which did not show any epileptiform abnormalities. We did appreciate a consult from Dr. Abraham. Dr. Abraham does follow up with the patient as an outpatient and recommended no changes to the patient's medications at this time, other than discontinuing his Keppra. The patient was supposed to discontinue his Keppra as an outpatient ( secondary to exacerbation of existing mood disorder) and was instructed to taper it. However, in discussion with the patient's , it was determined that it was unclear to the family as to how to taper the medication, so they left him on the Keppra. The patient was discontinued on Keppra here in the hospital, and he has tolerated this well. He still has his topiramate, which also treats his history of migraines. In regards to the patient's PE, he has been on heparin drip for the first part of this admission. We did discuss with Neurology appropriate anticoagulation, as the patient had a noted history of one hemorrhagic stroke. It was difficult to determine when this occurred, as the family does not provide a strong history. It appears that it may have occurred when the patient was in [place] , which would be prior to 2013. Given the patient's high risk and multiple pulmonary emboli and DVT, it was determined that the greater need is to have the patient start anticoagulation. The patient's does report that the patient sometimes refuses his medications or forgets to take them on certain days and so there was a concern that a NOAC would be poor choice of therapy for the patient (given the risk of hypercoaguability with missed doses) as he is not reliable to take his medications. In the event the patient has a future stroke, we can continue to monitor his INR, and he would still be a tPA candidate, if that situation were to arise. The patient was started on warfarin with Lovenox bridge. The patient stayed here in the hospital until we were able to find a family or community member who is able to give the patient his injections at home, as the patient is unable to give him to himself. The patient's did not feel comfortable administering them without some assistance. They found a friend/home health aide, who has come in and demonstrated how to properly give these injections. The is also trained to do so and both have been demonstrated appropriate injection technique in administering the medication. Mr. Fay's last documented INR is on 02/19/17 and it is noted to be 1.17. He has been receiving Lovenox and warfarin since 02/16/17. Again, he will be discharged home on b.i.d. Lovenox and warfarin 6 mg with a plan to follow up on his INR on Wednesday. [facility] [place]. The [facility] requires a referral from the [facility]. I did call [facility] back to ask them to refer the patient to their [place] [facility] program. On Wednesday, the patient, who has been referred to [facility], will be having an INR drawn at home by the visiting nurses and will have followup with Dr. Pillai's office for further instruction on his warfarin and Lovenox. Again, I did call the office to notify them that his INR result will be coming and that they should follow up the patient, which they state will occur. The patient did have a Physical Therapy consult and has been able to demonstrate safe ambulation. He has been without chest pain or complaints of dyspnea for greater than 72 hours and has been maintaining his O2 saturation while on room air. He has not required any pain medication. No further psychogenic seizure episodes have been noted. The patient is eager for discharge to home and states that he is motivated to comply with his current therapy of Lovenox and warfarin in order to prevent further DVTs and pulmonary emboli. CONCERNS AT DISCHARGE: Mr. Fay will be discharged to home on 02/19/17. He is to follow up with his glass finisher, as previously scheduled, as well as with the [facility], which has also been scheduled for him. OUTPATIENT FOLLOWUP NEEDS: INR on 02/22/17. The patient will also need an outpatient stress test, which can be arranged with his glass finisher, per the family's request. DIET: Heart-healthy diet. The patient has received education from our liquefier regarding vitamin K in foods and appropriate food intake while on Coumadin. ACTIVITY: As tolerated. CONDITION: Stable. DISPOSITION: To home. TIME SPENT: Time spent on this discharge was approximately 60 minutes in the clinic. Again, this is only of a brief summary of the patient's hospital course of stay. For full details, please refer to the full medical record. If you have any further questions or need further assistance, please feel free to contact me at . BRITTNI KAMINSKI NP [id number]/[facility] #: [id number] DANA
== END 2017-02-19 15:53 | disposition home health service (06) | DRG 176 ==
LOC: ED 11:50 → MEDTELE 14:53 → OBSVTOIN 02-17 07:30
PROVIDERS: ADMIT Hospitalist; ATTEND Hospitalist
PROC: 4A00X4Z Measurement of Central Nervous Electrical Activity, External Approach (ICD-10-PCS; principal; 2017-02-17)
DX: I26.99 Other pulmonary embolism without acute cor pulmonale (principal); G93.89 Other specified disorders of brain; N18.3 Chronic kidney disease, stage 3 (moderate); I82.491 Acute embolism and thrombosis of other specified deep vein of right lower extremity; G40.89 Other seizures; I69.354 Hemiplegia and hemiparesis following cerebral infarction affecting left non-dominant side; I12.9 Hypertensive chronic kidney disease with stage 1 through stage 4 chronic kidney disease, or unspecified chronic kidney disease; R07.9 Chest pain, unspecified; R94.31 Abnormal electrocardiogram [ECG] [EKG]; K21.9 Gastro-esophageal reflux disease without esophagitis; F32.9 Major depressive disorder, single episode, unspecified; F41.9 Anxiety disorder, unspecified; E78.5 Hyperlipidemia, unspecified; F43.10 Post-traumatic stress disorder, unspecified; G40.909 Epilepsy, unspecified, not intractable, without status epilepticus; Z79.82 Long term (current) use of aspirin; Z79.01 Long term (current) use of anticoagulants; I69.320 Aphasia following cerebral infarction; Z82.3 Family history of stroke; Z91.5 Personal history of self-harm
CPT/HCPCS: 36415; 70450; 71010; 71275; 80048; 80053; 80177; 83605; 83735; 84484; 84520; 85025; 85379; 85610; 85730; 93005; 93306; 93970; 95816; A9270-GY; C8929; G0378; J1644; J1650; J2270; Q9967

== ENCOUNTER 2017-03-01 10:17 | Inpatient (IN) | payer MEDICARE, MEDICAID ==
[2017-03-01 12:09] LABS: Urine Bacteria Absent (Absent); Urine Bilirubin Negative (Negative); Urine Glucose Negative (Negative); Urine Nitrite Positive (Negative)
[2017-03-01] MEDS ORDERED: NS 0.9% 1000 ML* 1,000 ML IV ONE (12:55)
[2017-03-01] MEDS ORDERED: cefTRIAXone(*) 1 GM in NS 0.9% 50 ML* 50 ML IVPB ONE (12:55)
[2017-03-01 13:24] LABS: Hematocrit 36 % (42-52); Hemoglobin 11.9 g/dl (14.0-18.0); Mean Corpuscular HGB Conc 33 g/dl (31-36); Mean Corpuscular Hemoglobin 30 pg (27-31); Mean Corpuscular Volume 91 fL (80-94); Mean Platelet Volume 10 um3 (7.4-10.4); Red Blood Count 3.91 10^6/ul (4.0-5.4); Red Cell Distribution Width 13 % (10.5-15); White Blood Count 6.9 10^3/ul (3.5-10.8)
[2017-03-01 13:38] LABS: BUN/Creatinine Ratio 9.7 (8-20); Calcium 8.8 mg/dL (8.6-10.3); EGFR African American 76.5 (>60); EGFR Non-African American 59.5 (>60)
[2017-03-01] MEDS ORDERED: Nitroglycerin TAB 0.4 MG* 0.4 MG TAB SL ONE (13:42)
[2017-03-01 14:13] LABS: Troponin I 0.06 ng/mL (<0.04)
[2017-03-01] MEDS ORDERED: Aspirin TAB* 325 MG PO ONE (14:36)
[2017-03-01] MEDS ORDERED: Acetaminophen TAB* 325 MG PO PRN (16:18)
[2017-03-01] MEDS ORDERED: Ondansetron INJ* 2 MG/ML VIAL IV PRN (16:18)
[2017-03-01] MEDS ORDERED: Senna TAB PO PRN (16:18)
[2017-03-01] MEDS ORDERED: Docusate CAP* 100 MG PO PRN (16:18)
[2017-03-01] MEDS ORDERED: Gabapentin CAP(*) 100 MG PO PRN (16:29)
[2017-03-01] MEDS ORDERED: Fluticasone NASAL SPRAY 50MCG* 16 gm SPRAY BTL BOTH NARES PRN (16:29)
[2017-03-01] MEDS ORDERED: Zolpidem TAB* 5 MG PO PRN (16:29)
[2017-03-01] MEDS ORDERED: Meclizine TAB* 12.5 MG PO PRN (16:29)
[2017-03-01] MEDS ORDERED: Warfarin TAB(*) 4 MG PO ONE (17:00)
[2017-03-01 17:45] LABS: Hematocrit 35 % (42-52); Hemoglobin 11.4 g/dl (14.0-18.0)
[2017-03-01] MEDS: Atorvastatin* 40 MG TAB PO SCH (21:22)
[2017-03-01] MEDS: Omeprazole CAP* 20 MG PO SCH (21:23)
[2017-03-01] MEDS: Topiramate TAB(*) 100 MG PO SCH (21:23)
[2017-03-01] MEDS: Lisinopril TAB* 10 MG PO SCH (21:23)
[2017-03-01] MEDS: Carbamide Peroxide 6.5% OTIC* 15 ML BTL BOTH EARS SCH (21:24)
[2017-03-01] MEDS: Potassium Chlor TAB* 20 MEQ TAB.ER PO SCH (21:24)
[2017-03-01] MEDS: Enoxaparin(*) 150 MG/ML 1 ML SYRINGE SUBCUT SCH (21:25)
--- NOTE | 2017-03-01 22:58 | HP ---
CC: Dr. Luigi Pillai; Dr. Abraham; Dr. Maxi Sanchez. * HISTORY AND PHYSICAL: DATE OF ADMISSION: 03/01/17 PROVIDER: Brittni Kaminski NP ATTENDING PHYSICIAN: Sherron Love MD * (as dictated by Brittni Kaminski NP). PRIMARY CARE PROVIDER: Dr. Luigi Pillai, [facility]. PRIMARY CLINICAL LEADER: Dr. Maxi Sanchez. CHIEF COMPLAINT: Hematuria. HISTORY OF PRESENT ILLNESS: Mr. Fay is a 61-year-old gentleman who was recently discharged from [facility] on 02/19/17 with a diagnosis of pulmonary emboli, DVT to the right peroneal vein, chest pain, abnormal EKG and psychogenic nonepileptiform seizure events. He was discharged on b.i.d. subcu Lovenox as a bridge along with warfarin 6 mg daily and was instructed to follow up with his PCP. Prior to discharge the patient had documented INR of 1.17. The patient was also referred to his crystalizer tender for outpatient evaluation and scheduling of an ischemic evaluation when the patient was medically stable to do so. The patient states that he did follow up with Dr. Sanchez on 02/22/17 and given his acute PE it was said that he will follow up again with Dr. Sanchez in a few months with a followup EKG. As the patient is appropriately medically managed with anticoagulation and beta linda as well as statin medication, it was felt that the patient is currently appropriately being treated and will not be an ideal candidate for a Lexiscan given his acute PE. The patient states that at home he was doing well and really had a couple of incidents of transient chest pain with certain activities. He has followed up with his physician and his warfarin dose has actually been decreased down to 4 mg most recently increased back up to 5 mg; however, he states that his INR has never reached 2 and he has been continued on Lovenox. He presents today with complaint of hematuria that has started this morning. His often notes that his urine is now odorous. He also reports a very tender abdomen from multiple Lovenox injections over the past couple of weeks. Of note, his INR today is 1.63 on a decreased dose of warfarin. Here in the ER, during his evaluation for hematuria, the patient had an incontinent episode. His helped him to change out of his wet clothes. During this time of rolling and moving in bed, the patient had an episode of chest pain. He states it was similar to previous setting of left chest pain. Previously he had reported that the pain was in his left chest and it will come from behind and move into his left arm. This pain is similar. The patient was given nitroglycerin and a troponin was checked. His trop was noted to be at 0.06, which is lower than previous as the patient's last troponin was 0.89 at last check. He denies any further chest pain. He actually feels relatively close to his baseline and is actually requesting to go home. However, given his hematuria and the need to continue anticoagulation with his acute DVT and PE , Hospital Medicine was consulted for admission. PAST MEDICAL HISTORY: 1. Pulmonary emboli. 2. DVT to right peroneal vein. 3. Seizure disorder. 4. History of psychogenic nonepileptiform seizure. 5. Hypertension. 6. Hyperlipidemia. 7. Posttraumatic stress disorder. 8. Depression. 9. History of CVA x6. 10. GERD. 11. Chronic kidney disease stage 3. 12. Previous history of DVT. HOME MEDICATIONS: 1. Lovenox 140 mg b.i.d. 2. Warfarin 5 mg daily. 3. [place] 5/325 one tab 4 times a day p.r.n. 4. Aspirin 81 mg daily. 5. Zolpidem 5 mg at bedtime p.r.n., 6. Topiramate 150 mg b.i.d. 7. Potassium chloride 20 mEq b.i.d. 8. Pantoprazole 40 mg b.i.d. 9. Multivitamin 1 tab daily. 10. Miconazole 2% topical b.i.d. p.r.n. 11. Meclizine 12.5 mg b.i.d. p.r.n. 12. Lisinopril 10 mg b.i.d. 13. Gabapentin 100 mg t.i.d. p.r.n. 14. Fluticasone nasal spray, 2 sprays both nares daily p.r.n. 15. Duloxetine 80 mg daily. 16. Cholecalciferol 2000 units daily. 17. Carbamide peroxide 6.5% otic drops, 5 drops both ears b.i.d. 18. Capsaicin 0.1% topical t.i.d. p.r.n. 19. Atorvastatin 40 mg b.i.d. 20. Atenolol 12.5 mg daily. ALLERGIES: No known allergies. FAMILY HISTORY: Significant for a brother with a CVA and a sister also with CVA. SOCIAL HISTORY: Mr. Fay denies tobacco, alcohol, or illicit drug use. He is a [place] [employer] . He lives at home with his and his Gavi Fay is his healthcare proxy. REVIEW OF SYSTEMS: As per HPI, other than mentioned in HPI are negative. PHYSICAL EXAMINATION GENERAL: Mr. Fay is a middle-aged male patient, who appears older than stated age. He is lying in ED stretcher, in no acute distress. VITAL SIGNS: Temperature 98, heart rate 68, respiratory rate 18, blood pressure 147/91, and O2 saturation 100% on room air. HEENT: Head is atraumatic, normocephalic. Face is symmetrical. Pupils are equal, round, reactive to light and accommodation. Extraocular movements are intact. Sclerae anicteric. External ears and nose are normal. Oral mucosa appears moist. NECK: Supple. No lymphadenopathy appreciated. LUNGS: Clear to auscultation. No wheezes, rales or rhonchi. CARDIAC: Irregular rate and rhythm. S1, S2 are present. No murmurs, rubs or gallops. No peripheral edema noted. ABDOMEN: Soft, protuberant, mildly tender in the lower abdomen with an extensive ecchymosis secondary to Lovenox injections. Bowel sounds are positive. MUSCULOSKELETAL: The patient has full range of motion. No clubbing or cyanosis noted. SKIN: Limited assessment. Again, there is extensive ecchymosis to the mid and lower abdomen secondary to Lovenox injection, is mildly warm to the touch. NEURO: The patient is alert and oriented x3. He has some residual aphasia from previous stroke which is his baseline as well as some mild right-sided weakness with the right lower extremity greater than the right upper extremity. There is a right lower extremity brace in place. Again, this is within the patient's baseline per his family. No new focal deficits noted. The patient is able to make his needs known. PSYCH: He is alert and oriented x3. Affect is appropriate. DIAGNOSTIC STUDIES/LAB DATA: CBC: WBC is 6.9, hemoglobin 11.9, hematocrit 36 , platelet count 167. INR is 1.63. BMP: Sodium 139, potassium 4.0, chloride 112, carbon dioxide 22, BUN 12, creatinine 1.24, glucose 95. Lactic acid 0.7. Troponin 0.06. EKG shows atrial fibrillation rate 64. The patient does have some T-wave inversions in leads V2 through V4 which are similar to previous, and compared to his previous EKG from last admission, his EKG looks better with no ST depressions noted and improvement in anterior leads and precordial leads. ASSESSMENT AND PLAN: Mr. Fay is a 61-year-old male patient who presents today with hematuria, was noted to have an episode of chest pain while in the ER. He will be admitted to the telemetry unit overnight. Plan is as follows: 1. Hematuria. I suspect that the patient does have beginning onset of a urinary tract infection. His does note that he had a urinary tract infection previously and was noted to have blood in urine at that time, of course exacerbated by the fact that the patient is now on Lovenox, warfarin and aspirin. Currently, we will hold his aspirin, continue with his Lovenox and warfarin as the patient's deep venous thrombosis, pulmonary edema, likely obligate us to continue that therapy over his hematuria. We will closely monitor him and follow his H and H to ensure that the patient does remain is stable. We will continue on him ceftriaxone for the suspected urinary tract infections and await urine cultures. 2. Chest pain. Again, the patient had a transient episode of chest pain and was given nitroglycerin, although I suspect that his pain would have resolved on its own without the nitro; however, this is difficult to note. I did briefly discuss this patient's case with Dr. Sanchez of Cardiology who sees the patient as an outpatient again because the patient has a new diagnosis of pulmonary embolism. He is not a candidate for Lexiscan at this time given the risk factors are associated with stress in a patient with acute pulmonary embolism. The patient is also not therapeutic yet for his INR. We will recheck a trop now. The patient again is not complaining of any chest pain right now and to me his trop is negative, remains the same. We will go ahead and continue with his medical management and outpatient followup with Cardiology. His EKG actually looks better than previous and the patient's currently elevated troponin is likely still resolving from his previous episode a few weeks ago. 3. History of pulmonary embolism and deep venous thrombosis recently diagnosed. Continue Lovenox bridging warfarin. I am unsure what happens in the outpatient setting as the patient's warfarin dose was decreased without reaching a therapeutic INR. At this point, we will give him 8 mg in the evening and continue with warfarin dosing per pharmacy. Recheck an INR tomorrow morning. Unfortunately, I cannot give the patient heparin to give the patient relief from the Lovenox injections given that he has hematuria. We will just continue to follow his INR and hopefully help him reach the therapeutic level so that we can discontinue the Lovenox. 4. History of hypertension. Continue home atenolol, lisinopril. 5. History of hyperlipidemia. Continue home atorvastatin. 6. History of psychogenic seizures. Continue home Topamax. 7. Gastroesophageal reflux disease. Continue PPI. 8. Chronic kidney disease stage 3. Creatinine is at baseline. 9. History of cerebrovascular accident. Continue statin and anticoagulation. Aspirin is currently on hold given the patient's hematuria. 10. Posttraumatic stress disorder and depression. Continue home Cymbalta. 11. FEN: The patient will be on a heart healthy diet. 12. DVT prophylaxis: Continue home warfarin with Lovenox bridge. 13. Code status: The patient is a full code. TIME SPENT: Time spent on this admission was approximately 60 minutes more than half that time was spent [id number] with the patient and his obtaining history and physical, performing physical examination, and reviewing the plan of care. Plan of care was also reviewed with my attending, Dr. Love , who is in agreement. BRITTNI KAMINSKI, NANCY [id number]/CPS #: [id number] DANA
[2017-03-01] MEDS: HYDROcodone/ACETAMIN 5-325 MG* 1 TAB PO PRN (23:26)
[2017-03-02 05:30] LABS: Hematocrit 34 % (42-52); Hemoglobin 11.4 g/dl (14.0-18.0); Mean Corpuscular HGB Conc 33 g/dl (31-36); Mean Corpuscular Hemoglobin 30 pg (27-31); Mean Corpuscular Volume 90 fL (80-94); Mean Platelet Volume 10 um3 (7.4-10.4); Red Cell Distribution Width 13 % (10.5-15); White Blood Count 7.9 10^3/ul (3.5-10.8)
[2017-03-02 05:46] LABS: BUN/Creatinine Ratio 10.2 (8-20); Calcium 8.6 mg/dL (8.6-10.3); Potassium 3.9 mmol/L (3.5-5.0)
[2017-03-02] MEDS: Potassium Chlor TAB* 20 MEQ TAB.ER PO SCH ×2 (08:26→21:54)
[2017-03-02] MEDS: Multivitamins/Minerals TAB PO SCH (08:27)
[2017-03-02] MEDS: Cholecalciferol TAB* 1000 UNITS PO SCH (08:28)
[2017-03-02] MEDS: Omeprazole CAP* 20 MG PO SCH ×2 (08:28→21:54)
[2017-03-02] MEDS: Topiramate TAB(*) 100 MG PO SCH ×2 (08:29→21:54)
[2017-03-02] MEDS: Atorvastatin* 40 MG TAB PO SCH ×2 (08:29→21:54)
[2017-03-02] MEDS: Lisinopril TAB* 10 MG PO SCH ×2 (08:30→21:54)
[2017-03-02] MEDS: DULoxetine DR CAP* 20 MG CAP.DR PO SCH (08:30)
[2017-03-02] MEDS: Atenolol TAB* 25 MG PO SCH (08:31)
[2017-03-02] MEDS: Carbamide Peroxide 6.5% OTIC* 15 ML BTL BOTH EARS SCH ×2 (08:32→21:54)
[2017-03-02] MEDS: Enoxaparin(*) 150 MG/ML 1 ML SYRINGE SUBCUT SCH ×2 (08:35→21:15)
--- NOTE | 2017-03-02 09:47 | PN ---
Subjective Date of Service: 03/02/17 Interval History: Patient seen and examined at bedside. He reports some intermittent episodes of left sided chest pain but then states, "I get anxious." He is eager to go home. Denies any dyspnea, fever/chills, or other complaints. Still reports red urine. Telemetry: SR 60s-70s Family History: Unchanged from Admission Social History: Unchanged from Admission Past Medical History: Unchanged from Admission Objective Active Medications: Acetaminophen (Tylenol Tab*) 650 mg PO Q4H PRN PRN Reason: FEVER/PAIN Hydrocodone Bitart/Acetaminophen (Hiram 5-325 Tab*) 1 tab PO QID PRN PRN Reason: PAIN Last Admin: 03/01/17 23:26 Dose: 1 tab Atenolol (Tenormin Tab*) 12.5 mg PO DAILY [facility] Last Admin: 03/02/17 08:31 Dose: 12.5 mg Atorvastatin Calcium (Lipitor*) 40 mg PO BID [facility] Last Admin: 03/02/17 08:29 Dose: 40 mg Carbamide Peroxide (Debrox 6.5% Otic*) 5 drop BOTH EARS BID [facility] Last Admin: 03/02/17 08:32 Dose: Not Given Cholecalciferol (Vitamin D Tab*) 2,000 units PO DAILY [facility] Last Admin: 03/02/17 08:28 Dose: 2,000 units Docusate Sodium (Colace Cap*) 100 mg PO BID PRN PRN Reason: CONSTIPATION Duloxetine HCl (Cymbalta Cap*) 80 mg PO DAILY [facility] Last Admin: 03/02/17 08:30 Dose: 80 mg Enoxaparin Sodium (Lovenox(*)) 140 mg SUBCUT BID [facility] Last Admin: 03/02/17 08:35 Dose: 140 mg Fluticasone Propionate (Flonase Nasal [place] 50mcg*) 2 spray BOTH NARES DAILY PRN PRN Reason: CONGESTION Gabapentin (Neurontin Cap(*)) 100 mg PO TID PRN PRN Reason: PAIN Ceftriaxone Sodium 1,000 mg/ (Sodium Chloride) 50 mls @ 200 mls/hr IVPB Q24H [facility] Lisinopril (Prinivil Tab*) 10 mg PO BID [facility] Last Admin: 03/02/17 08:30 Dose: 10 mg Meclizine HCl (Antivert Tab*) 12.5 mg PO BID PRN PRN Reason: DIZZINESS Multivitamins/Minerals (Theragran/Minerals Tab*) 1 tab PO DAILY [facility] Last Admin: 03/02/17 08:27 Dose: 1 tab Omeprazole (Prilosec Cap*) 20 mg PO BID [facility] Last Admin: 03/02/17 08:28 Dose: 20 mg Ondansetron HCl (Zofran Inj*) 4 mg IV Q6H PRN PRN Reason: NAUSEA/VOMITING Pharmacy Profile Note (Coumadin Per Pharmacy*) 1 note FOLLOW UP .PER PHARMACY PROTOC [facility] PRN Reason: Protocol Pharmacy Profile Note (Coumadin Daily Reminder*) 1 note FOLLOW UP 1700 [facility] Potassium Chloride (Klor Con Er Tab*) 20 meq PO BID [facility] Last Admin: 03/02/17 08:26 Dose: 20 meq Senna (Senokot Tab*) 1 tab PO BID PRN PRN Reason: CONSTIPATION Topiramate (Topamax(*)) 150 mg PO BID [facility] Last Admin: 03/02/17 08:29 Dose: 150 mg Warfarin Sodium (Coumadin Tab(*)) 8 mg PO ONCE@1700 ONE Stop: 03/02/17 17:01 Zolpidem Tartrate (Ambien Tab*) 5 mg PO BEDTIME PRN PRN Reason: SLEEP Vital Signs 03/01/17 03/01/17 03/01/17 16:40 17:31 19:50 Temperature 98 F 98.0 F 97.8 F Pulse Rate 68 65 82 Respiratory 16 16 16 Rate Blood Pressure 155/89 163/89 155/83 (mmHg) O2 Sat by Pulse 99 100 100 Oximetry 03/01/17 03/01/17 03/02/17 23:26 23:55 01:23 Temperature 98.6 F Pulse Rate 71 Respiratory 16 20 16 Rate Blood Pressure 176/101 (mmHg) O2 Sat by Pulse 100 Oximetry 03/02/17 03/02/17 04:10 07:36 Temperature 97.7 F 98.2 F Pulse Rate 75 71 Respiratory 16 14 Rate Blood Pressure 154/101 143/82 (mmHg) O2 Sat by Pulse 100 100 Oximetry Oxygen Devices in Use Now: None Appearance: Male patient, lying in bed, NAD Eyes: No Scleral Icterus Ears/Nose/Mouth/Throat: Clear Oropharnyx, Mucous Membranes Moist Neck: NL Appearance and Movements; NL JVP Respiratory: Symmetrical Chest Expansion and Respiratory Effort, Clear to Auscultation Cardiovascular: NL Sounds; No Murmurs; No JVD Abdominal: NL Sounds; No Tenderness; No Distention Extremities: No Edema Neurological: Alert and Oriented x 3, NL Muscle Strength and Tone, - - aphasia, right sided weakness at baseline Lines/Tubes/Other Access: Clean, Dry and Intact Peripheral IV Nutrition: Taking PO's Result Diagrams: 03/02/17 05:20 03/02/17 05:20 Assess/Plan/Problems-Billing Assessment: Mr. Fay is a 61 yo male with a PMH of previous CVAs (6), HTN, HLD, PTSD, depression, seizure disorder, GERD, CKD stage 3, and DVT who presented to the ED on 02/15/17 with concern for chest pain. - Patient Problems (1) Hematuria Code(s): R31.9 - HEMATURIA, UNSPECIFIED Comment: Patient on ASA, Lovenox, and warfarin for hx of CVA and for new PE/DVT Will hold ASA currently but continue anticoagulation, given patient's acute PE/ DVT Suspected UTI - continue ceftriaxone Await urine cx (2) Chest pain Code(s): R07.9 - CHEST PAIN, UNSPECIFIED Comment: Reporting intermittent chest pain Trop 0.06, which is down from previous EKG improved from previous admission, suspect pain and previous EKG changes secondary to new PE. Patient has appropriate medical management for chest pain. Stress test not indicated at this time with acute PE. Continue outpatient cardiology follow-up. (3) Pulmonary emboli Code(s): I26.99 - OTHER PULMONARY EMBOLISM WITHOUT ACUTE COR PULMONALE Comment : With recently dx (02/16/17) right mid and lower lobe pulmonary emboli. Patient with right peroneal vein DVT Continue warfarin with Lovenox bridge Patient with poor medication adherence, not a good candidate for NOAC. (4) Hypertension Code(s): I10 - ESSENTIAL (PRIMARY) HYPERTENSION Comment: Mostly normotensive Continue atenolol and lisinopril. (5) CKD (chronic kidney disease), stage III Code(s): N18.3 - CHRONIC KIDNEY DISEASE, STAGE 3 (MODERATE) Comment: Creatinine within baseline. (6) Depression Code(s): F32.9 - MAJOR DEPRESSIVE DISORDER, SINGLE EPISODE, UNSPECIFIED Comment: With hx of PTSD Continue duloxetine. (7) GERD (gastroesophageal reflux disease) Code(s): K21.9 - GASTRO-ESOPHAGEAL REFLUX DISEASE WITHOUT ESOPHAGITIS Comment : Continue PPI. (8) HLD (hyperlipidemia) Code(s): E78.5 - HYPERLIPIDEMIA, UNSPECIFIED Comment: Continue atorvastatin 40 mg BID. (9) Seizure disorder Code(s): G40.909 - EPILEPSY, UNSP, NOT INTRACTABLE, WITHOUT STATUS EPILEPTICUS Comment: With known psychogenic nonepileptiform seizures Continue home topiramate (also treats hx of migraines). Keppra discontinued per neurology. (10) History of CVA (cerebrovascular accident) Current Visit: No Status: Acute Code(s): Z86.73 - PRSNL HX OF TIA (TIA), AND CEREB INFRC W/O RESID DEFICITS SNOMED Code(s): 370095212 Comment: History of 6 previous strokes, per patient. Reported to have one hemorrhagic stroke prior to 2013 Most recent in August 2016 Patient has residual right sided weakness and some aphasia (11) DVT prophylaxis Comment: INR subtherapeutic, patient has not reached INR goal since starting warfarin on 02/17. Continue warfarin with Lovenox bridge Status and Disposition: OBV admit. D/c to home when medically stable.
[2017-03-02] MEDS: cefTRIAXone VIAL(*) 1,000 MG in NS 0.9% 50 ML* 50 ML IVPB SCH (11:51)
[2017-03-02] MEDS ORDERED: Warfarin TAB(*) 4 MG PO ONE (17:00)
[2017-03-03] MEDS ORDERED: Nitroglycerin TAB 0.4 MG* 0.4 MG TAB SL ONE (00:02)
[2017-03-03] MEDS ORDERED: Nitroglycerin TAB 0.4 MG* 0.4 MG TAB ONE (00:06)
[2017-03-03 06:34] LABS: Hematocrit 34 % (42-52); Hemoglobin 11.2 g/dl (14.0-18.0); Mean Platelet Volume 10 um3 (7.4-10.4)
[2017-03-03] MEDS: Enoxaparin(*) 150 MG/ML 1 ML SYRINGE SUBCUT SCH (09:18)
[2017-03-03] MEDS: Atenolol TAB* 25 MG PO SCH (09:19)
[2017-03-03] MEDS: Topiramate TAB(*) 100 MG PO SCH (09:20)
[2017-03-03] MEDS: Potassium Chlor TAB* 20 MEQ TAB.ER PO SCH (09:21)
[2017-03-03] MEDS: Atorvastatin* 40 MG TAB PO SCH (09:22)
[2017-03-03] MEDS: Multivitamins/Minerals TAB PO SCH (09:22)
[2017-03-03] MEDS: Omeprazole CAP* 20 MG PO SCH (09:22)
[2017-03-03] MEDS: DULoxetine DR CAP* 20 MG CAP.DR PO SCH (09:23)
[2017-03-03] MEDS: Lisinopril TAB* 10 MG PO SCH (09:24)
[2017-03-03] MEDS: Cholecalciferol TAB* 1000 UNITS PO SCH (09:24)
[2017-03-03] MEDS: Carbamide Peroxide 6.5% OTIC* 15 ML BTL BOTH EARS SCH (09:27)
[2017-03-03] MEDS: HYDROcodone/ACETAMIN 5-325 MG* 1 TAB PO PRN (09:34)
--- NOTE | 2017-03-03 10:39 | PN ---
Subjective Date of Service: 03/03/17 Interval History: Patient seen and examined at bedside. Reports intermittent chest pain that is self-limiting. Denies dyspnea. Denies flank pain, abd pain, dysuria. Still reports bloody urine. Family History: Unchanged from Admission Social History: Unchanged from Admission Past Medical History: Unchanged from Admission Objective Active Medications: Acetaminophen (Tylenol Tab*) 650 mg PO Q4H PRN PRN Reason: FEVER/PAIN Hydrocodone Bitart/Acetaminophen ([place] 5-325 Tab*) 1 tab PO QID PRN PRN Reason: PAIN Last Admin: 03/03/17 09:34 Dose: 1 tab Atenolol (Tenormin Tab*) 12.5 mg PO DAILY [facility] Last Admin: 03/03/17 09:19 Dose: 12.5 mg Atorvastatin Calcium (Lipitor*) 40 mg PO BID [facility] Last Admin: 03/03/17 09:22 Dose: 40 mg Carbamide Peroxide (Debrox 6.5% Otic*) 5 drop BOTH EARS BID [facility] Last Admin: 03/03/17 09:27 Dose: Not Given Cholecalciferol (Vitamin D Tab*) 2,000 units PO DAILY [facility] Last Admin: 03/03/17 09:24 Dose: 2,000 units Docusate Sodium (Colace Cap*) 100 mg PO BID PRN PRN Reason: CONSTIPATION Duloxetine HCl (Cymbalta Cap*) 80 mg PO DAILY [facility] Last Admin: 03/03/17 09:23 Dose: 80 mg Enoxaparin Sodium (Lovenox(*)) 140 mg SUBCUT BID [facility] Last Admin: 03/03/17 09:18 Dose: 140 mg Fluticasone Propionate (Flonase Nasal [place] 50mcg*) 2 spray BOTH NARES DAILY PRN PRN Reason: CONGESTION Gabapentin (Neurontin Cap(*)) 100 mg PO TID PRN PRN Reason: PAIN Ceftriaxone Sodium 1,000 mg/ (Sodium Chloride) 50 mls @ 200 mls/hr IVPB Q24H [facility] Last Admin: 03/02/17 11:51 Dose: 200 mls/hr Lisinopril (Prinivil Tab*) 10 mg PO BID [facility] Last Admin: 03/03/17 09:24 Dose: 10 mg Meclizine HCl (Antivert Tab*) 12.5 mg PO BID PRN PRN Reason: DIZZINESS Multivitamins/Minerals (Theragran/Minerals Tab*) 1 tab PO DAILY [facility] Last Admin: 03/03/17 09:22 Dose: 1 tab Omeprazole (Prilosec Cap*) 20 mg PO BID [facility] Last Admin: 03/03/17 09:22 Dose: 20 mg Ondansetron HCl (Zofran Inj*) 4 mg IV Q6H PRN PRN Reason: NAUSEA/VOMITING Pharmacy Profile Note (Coumadin Per Pharmacy*) 1 note FOLLOW UP .PER PHARMACY PROTOC [facility] PRN Reason: Protocol Pharmacy Profile Note (Coumadin Daily Reminder*) 1 note FOLLOW UP 1700 [facility] Last Admin: 03/02/17 17:09 Dose: 1 note Potassium Chloride (Klor Con Er Tab*) 20 meq PO BID [facility] Last Admin: 03/03/17 09:21 Dose: 20 meq Senna (Senokot Tab*) 1 tab PO BID PRN PRN Reason: CONSTIPATION Topiramate (Topamax(*)) 150 mg PO BID [facility] Last Admin: 03/03/17 09:20 Dose: 150 mg Warfarin Sodium (Coumadin Tab(*)) 6 mg PO ONCE ONE Stop: 03/03/17 17:01 Zolpidem Tartrate (Ambien Tab*) 5 mg PO BEDTIME PRN PRN Reason: SLEEP Vital Signs 03/02/17 03/02/17 03/02/17 11:24 15:25 19:29 Temperature 98.3 F 98.4 F 98.7 F Pulse Rate 69 73 72 Respiratory 16 18 18 Rate Blood Pressure 140/96 141/81 143/82 (mmHg) O2 Sat by Pulse 100 99 99 Oximetry 03/02/17 03/02/17 03/03/17 21:09 23:44 04:00 Temperature 97.6 F 98.1 F 98.3 F Pulse Rate 76 81 94 Respiratory 14 16 16 Rate Blood Pressure 164/108 180/102 160/96 (mmHg) O2 Sat by Pulse 100 97 98 Oximetry 03/03/17 03/03/17 07:27 09:34 Temperature Pulse Rate 76 Respiratory 21 14 Rate Blood Pressure 145/82 (mmHg) O2 Sat by Pulse 98 Oximetry Oxygen Devices in Use Now: None Appearance: Male patient, lying in bed, NAD Eyes: No Scleral Icterus Ears/Nose/Mouth/Throat: Mucous Membranes Moist Neck: NL Appearance and Movements; NL JVP Respiratory: Symmetrical Chest Expansion and Respiratory Effort, Clear to Auscultation Cardiovascular: NL Sounds; No Murmurs; No JVD, RRR Abdominal: NL Sounds; No Tenderness; No Distention Extremities: No Edema Neurological: Alert and Oriented x 3 Lines/Tubes/Other Access: Clean, Dry and Intact Peripheral IV Nutrition: Taking PO's Result Diagrams: 03/03/17 06:28 03/02/17 05:20 Assess/Plan/Problems-Billing Assessment: Mr. Fay is a 61 yo male with a PMH of previous CVAs (6), HTN, HLD, PTSD, depression, seizure disorder, GERD, CKD stage 3, and DVT who presented to the ED on 02/15/17 with concern for chest pain. - Patient Problems (1) Hematuria Code(s): R31.9 - HEMATURIA, UNSPECIFIED Comment: Painless hematuria, with no c/o abd or flank pain or evidence of infection Renal function within patient's baseline, VSS Need to continue ASA and warfarin, given pt's acute PE/DVT and high risk factor for CVA (hx of 6) Urine cx shows no significant growth of bacteria Patient referred to urology for outpt follow-up and cystoscopy Plan for CT urogram prior to dc; if abnormality seen, pt will have inpatient urology consult. (2) Chest pain Code(s): R07.9 - CHEST PAIN, UNSPECIFIED Comment: Reporting intermittent chest pain Trop 0.06, which is down from previous EKG improved from previous admission, suspect pain and previous EKG changes secondary to new PE. Patient has appropriate medical management for chest pain. Stress test not indicated at this time with acute PE. Discussed with pt's internet marketing specialist, Dr. Sanchez. Continue outpatient cardiology follow-up. (3) Pulmonary emboli Code(s): I26.99 - OTHER PULMONARY EMBOLISM WITHOUT ACUTE COR PULMONALE Comment : With recently dx (02/16/17) right mid and lower lobe pulmonary emboli. Patient with right peroneal vein DVT Continue warfarin. Patient with poor medication adherence, not a good candidate for NOAC. (4) Hypertension Code(s): I10 - ESSENTIAL (PRIMARY) HYPERTENSION Comment: Mostly normotensive Continue atenolol and lisinopril. (5) CKD (chronic kidney disease), stage III Code(s): N18.3 - CHRONIC KIDNEY DISEASE, STAGE 3 (MODERATE) Comment: Creatinine better than baseline. (6) Depression Code(s): F32.9 - MAJOR DEPRESSIVE DISORDER, SINGLE EPISODE, UNSPECIFIED Comment: With hx of PTSD Continue duloxetine. (7) GERD (gastroesophageal reflux disease) Code(s): K21.9 - GASTRO-ESOPHAGEAL REFLUX DISEASE WITHOUT ESOPHAGITIS Comment : Continue PPI. (8) HLD (hyperlipidemia) Code(s): E78.5 - HYPERLIPIDEMIA, UNSPECIFIED Comment: Continue atorvastatin 40 mg BID. (9) Seizure disorder Code(s): G40.909 - EPILEPSY, UNSP, NOT INTRACTABLE, WITHOUT STATUS EPILEPTICUS Comment: With known psychogenic nonepileptiform seizures Continue home topiramate (also treats hx of migraines). Keppra discontinued per neurology. (10) History of CVA (cerebrovascular accident) Current Visit: No Status: Acute Code(s): Z86.73 - PRSNL HX OF TIA (TIA), AND CEREB INFRC W/O RESID DEFICITS SNOMED Code(s): 881709411 Comment: History of 6 previous strokes, per patient. Reported to have one hemorrhagic stroke prior to 2013 Most recent in August 2016 Patient has residual right sided weakness and some aphasia (11) DVT prophylaxis Comment: INR therapeutic Continue warfarin. Status and Disposition: OBV admit. D/c to home when medically stable.
[2017-03-03] MEDS: cefTRIAXone VIAL(*) 1,000 MG in NS 0.9% 50 ML* 50 ML IVPB SCH (13:23)
[2017-03-03] MEDS ORDERED: Iohexol 300* (CONTRAST) 10 ML SDV IV ONE (14:02)
[2017-03-03 16:14] VITALS: BP 133/75
[2017-03-03] MEDS ORDERED: Warfarin TAB(*) 6 MG PO ONE (17:00)
--- NOTE | 2017-03-03 18:14 | RAD ---
INDICATION: 4-5 days of hematuria COMPARISON: None TECHNIQUE: Axial source images were acquired. Coronal and sagittal reconstructed images were obtained along with CT urography. A three-phase examination was performed with noncontrast, immediate postcontrast (nephrographic phase), and delayed postcontrast (pyelographic phase) imaging. The patient received 150 mL Omnipaque 300 intravenously. FINDINGS: Visualized lung bases are clear. There is no pleural effusion. There are no focal abnormalities of the liver or spleen. There are no calcific gallstones. There is no evidence of an adrenal or pancreatic mass. There is no evidence of nephrolithiasis. There is no evidence of an enhancing mass. There are no obstructive findings. There are prompt nephrograms bilaterally. Multiple, left greater than right, pelvic cysts are noted. On the 8 minute delayed ureterogram contrast is seen layering in the urinary bladder. At the deep ended urinary bladder there is asymmetric thickening measuring up to 9 mm in thickness with nodular soft tissue formation (axial image 175 and sagittal image 82). There are no free or localized fluid collections. There is no retroperitoneal or mesenteric adenopathy. The aorta is normal in caliber. Evaluation of the gastrointestinal tract is limited without oral contrast. The small and large bowel is not pathologically dilated. The reproductive viscera are grossly normal in appearance. There is coarse atherosclerotic calcification in the prostate gland. Overlying the anterior abdominal wall there are multiple soft tissue density foci in the subcutaneous fat, the largest measures 4.9 cm in greatest axial dimension (image 223). There is no discernible contrast enhancement at this largest lesion. There are no sinister bone lesions identified. IMPRESSION: 1. There is soft tissue thickening and soft tissue nodularity at the dependent portion of the urinary bladder. Most confident characterization can be made with direct visualization. 2. Scattered subcutaneous soft tissue nodules at the anterior abdominal wall that do not exhibit focal contrast enhancement. Sebaceous cysts or other benign entity is favored. Further characterization can be made on a nonemergent basis with ultrasound if clinically warranted. 3. Additional chronic and degenerative changes described in the body the report.
--- NOTE | 2017-03-04 07:16 | DS ---
CC: Dr. Luigi Pillai; Dr. Maxi Sanchez; Dr. Shayne Delgado * DISCHARGE SUMMARY: DATE OF ADMISSION: 03/01/17 DATE OF DISCHARGE: 03/03/17 PROVIDER: Brittni Kaminski NP ATTENDING PHYSICIAN: Dr. Sherron Love * (as dictated by Brittni Kaminski NP). PRIMARY CARE PROVIDER: Dr. Luigi Pillai, [facility]. PRIMARY CATALYST SUPERVISOR: Dr. Maxi Sanchez. REFERRING UROLOGIST: Dr. Shayne Delgado. PRIMARY DISCHARGE DIAGNOSES: 1. Hematuria. 2. Chest pain. SECONDARY DISCHARGE DIAGNOSES: 1. Recently diagnosed pulmonary emboli. 2. Recently diagnosed deep venous thrombosis to the right peroneal vein. 3. Seizure disorder. 4. History of psychogenic nonepileptiform seizures. 5. Hypertension. 6. Hyperlipidemia. 7. Posttraumatic stress disorder. 8. Depression. 9. History of cerebrovascular accident, x6 episodes. 10. Gastroesophageal reflux disease. 11. Chronic kidney disease stage 3. 12. Previous history of deep venous thrombosis. HOME MEDICATIONS AT DISCHARGE: 1. Atenolol 12.5 mg daily. 2. Atorvastatin 40 mg b.i.d. 3. Capsaicin 0.1% topical t.i.d. p.r.n. 4. Debrox drops 5 drops to both ears b.i.d. 5. Cholecalciferol 2000 units daily. 6. Duloxetine DR 80 mg daily. 7. Fluticasone nasal spray 50 mcg 2 sprays to both nares daily p.r.n. 8. Gabapentin 100 mg t.i.d. p.r.n. 9. Clopidogrel 10 mg b.i.d. 10. Meclizine 12.5 mg b.i.d. p.r.n. 11. Miconazole 2% topical b.i.d. p.r.n. 12. Multivitamin 1 tab daily. 13. Pantoprazole 40 mg b.i.d. 14. Potassium chloride 20 mEq b.i.d. 15. Topiramate 150 mg b.i.d. 16. Zolpidem 5 mg at bedtime p.r.n. 17. Aspirin 81 mg daily. 18. [place] 5/325 one tab 4 times a day p.r.n. 19. Warfarin 5 mg daily. This is an adjusted dose based on the patient's INR from 03/03/17. DIAGNOSTIC TESTING DURING THIS ADMISSION: CT urogram shows findings with no evidence of nephrolithiasis. There is no evidence of enhancing mass. There are no obstructive findings. There are prompt nephrograms bilaterally. Multiple left greater than right pelvic cysts are noted. On the 8-minute delayed ureterogram, contrast was seen layering in the urinary bladder. At deeper in the urinary bladder, there is asymmetric thickening measuring up to 9 mm in thickness with nodular soft tissue formation. Impression: There was soft tissue thickening and soft tissue nodularity at the dependent portion of the urinary bladder. Most confident characterization can be made with direct visualization. Scattered subcutaneous soft tissue nodules at the anterior abdominal wall that do not exhibit focal contrast enhancement. Sebaceous cyst or other benign entity is favored. Further characterization can be made on a nonemergent basis. Additional chronic and degenerative changes described in the body of the report. HOSPITAL COURSE OF STAY: For full details, please refer to the H and P provided on admission. In summary, Mr. Fay is a 61-year-old gentleman who was recently discharged from [facility] on 02/19/17 with a diagnosis of PE, DVT, chest pain, abnormal EKG, and psychogenic nonepileptiform seizure event. The patient did have followup with Dr. Sanchez of Cardiology, who agreed with patient's current medical management and had plans to see the patient in followup to determine the need for further ischemic evaluation and stress test. It is not indicated at this time, given the patient has a subacute PE. The patient presented to the emergency room, initially with complaint of painless hematuria. The patient's also reported foul smelling urine and had concern for a UTI. The patient has no previous history of hematuria that he is aware of, although his does recall that he had an episode of UTI some years back, which involved hematuria. Of note, the patient was discharged from his previous admission on warfarin with a Lovenox bridge. He has not yet reached his INR goal of 2 to 3. The patient had marked ecchymosis to the abdomen. While in the ER, the patient also had a transient episode of chest pain. He was given nitroglycerin. His troponin was checked and it was measured at 0.06, which is down from the patient's previous troponins, but indeterminate by our standards, a repeat troponin was 0.05. Chest pain was thought to be secondary to the patient's PE as they are transient episodes that he has noted these at home as well, and they do resolve spontaneously. In either case, the patient has full medical management for coronary artery disease with aspirin, beta linda, and anticoagulation. The patient was admitted for further observation of hematuria. He was treated with ceftriaxone for a suspected infection. However, his urine culture came back negative for infection with no significant growth. I did discuss the case with Dr. Delgado of [facility], who recommended the patient to have a CT urogram to evaluate for any nephrolithiasis or bladder tumors. CT urogram did not show any evidence of this. The patient has been referred to Urology for followup cystoscopy as an outpatient. The patient is to call and make his appointment as he does need to discuss which insurance he will use as he does have multiple insurances including [facility] medical insurance, which would necessitate a referral from the [facility] prior to evaluation in the office. Prior to discharge, the patient denies any pain. He has been denying any flank pain, abdominal pain, nausea, vomiting. He feels at his baseline. Again, hematuria is painless. There are no bloody clots noted. The patient was advised that if it persists or continues to worsen, then he should return back to the ER or see his medical provider for further evaluation. In regards to the patient's INR, he did meet his goal INR on 03/03/17 with a recorded INR of 2.49. The patient was discharged on his home dose of warfarin 5 mg as he was previously on warfarin 8 mg here in the hospital. An INR has been ordered for 03/04/17 with results to be sent to his physician at the [facility] for further monitoring and medication titration. CONCERNS AT DISCHARGE: Mr. Fay will be discharged to home on 03/03/17. He has scheduled followup with his primary care provider. Again, he is to have an INR on 03/04/17, which should be drawn by visiting nurse services and sent to his PCP for further direction. The patient will call [facility] for initial appointment and for arrangement of cystoscopy. DIET: Heart healthy diet. ACTIVITY: As tolerated. CONDITION: Stable. DISPOSITION: To home. TIME SPENT: Time spent on this discharge was approximately 60 minutes. Again, this is only a brief summary of the patient's hospital course of stay. For full details, please refer to the full medical record. If you have any further questions or need further assistance, please feel free to contact me at . BRITTNI KAMINSKI, CELL TENDER HELPER [id number]/[facility] #: [id number] DANA
== END 2017-03-03 19:30 | disposition home health service (06) | DRG 695 ==
LOC: ED 10:17 → MEDTELE 16:13 → OBSVTOIN 03-02 09:00 → MED 03-02 20:15
PROVIDERS: ADMIT Internal Medicine; ATTEND Internal Medicine
DX: R31.9 Hematuria, unspecified (principal); I26.99 Other pulmonary embolism without acute cor pulmonale; I82.491 Acute embolism and thrombosis of other specified deep vein of right lower extremity; I69.351 Hemiplegia and hemiparesis following cerebral infarction affecting right dominant side; G40.909 Epilepsy, unspecified, not intractable, without status epilepticus; E78.5 Hyperlipidemia, unspecified; F43.10 Post-traumatic stress disorder, unspecified; F32.9 Major depressive disorder, single episode, unspecified; K21.9 Gastro-esophageal reflux disease without esophagitis; I12.9 Hypertensive chronic kidney disease with stage 1 through stage 4 chronic kidney disease, or unspecified chronic kidney disease; N18.3 Chronic kidney disease, stage 3 (moderate); R07.9 Chest pain, unspecified; F41.9 Anxiety disorder, unspecified; R22.2 Localized swelling, mass and lump, trunk; R58 Hemorrhage, not elsewhere classified; I25.10 Atherosclerotic heart disease of native coronary artery without angina pectoris; Z86.711 Personal history of pulmonary embolism; Z86.718 Personal history of other venous thrombosis and embolism; Z82.3 Family history of stroke; Z87.440 Personal history of urinary (tract) infections; I69.320 Aphasia following cerebral infarction; Z79.02 Long term (current) use of antithrombotics/antiplatelets; Z79.82 Long term (current) use of aspirin; Z79.01 Long term (current) use of anticoagulants
CPT/HCPCS: 36415; 74178; 76377; 80048; 81003; 81015; 83605; 84484; 85014; 85018; 85025; 85027; 85049; 85610; 85730; 87040; 87086; 93005; A9270-GY; G0378; G8996-GN-CH; G8997-GN-CH; J0696; J1650; Q9967

== ENCOUNTER 2017-03-04 18:10 | Emergency (ER) | payer MEDICARE, MEDICAID ==
[2017-03-04] MEDS ORDERED: Morphine INJ* 2 MG/ML 1 ML SYRINGE IV ONE (19:48)
--- NOTE | 2017-03-04 20:21 | ED ---
Briseida Chaudhry Edward, scribed for Darren Leal MD on 03/04/17 at 1950 . Back Pain - HPI Summary HPI Summary: 61 y/o male BIBA c/o sudden onset L side flank pain starting last night. The pain was rated 10/10 at triage. Pt states he developed ABD pain when he arrived at the ED. Associated sx: ecchymosis over R knee, low grade fever per . PMHx blood clots, known DVT and known PE. - History of Current Complaint Chief Complaint: EDFlankPain Stated Complaint: LOWER BACK PAIN Hx Obtained From: Patient Onset/Duration: Sudden Onset, Lasting Hours - Last night, Still Present Onset/Duration: Started Hours Ago Severity Currently: Severe Pain Intensity: 10 Pain Scale Used: 0-10 Numeric Associated Signs And Symptoms: Positive: Fever, Abdominal Pain, Flank Pain - Allergies/Home Medications Allergies/Adverse Reactions: Allergies Allergy/AdvReac Type Severity Reaction Status Date / Time Oxycodone Allergy Unknown Verified 03/04/17 18:53 Reaction Details PMH/Surg Hx/FS Hx/Imm Hx Previously Healthy: No Endocrine/Hematology History: Reports: Hx Anticoagulant Therapy Denies: Hx Diabetes Cardiovascular History: Reports: Hx Angina, Hx Coronary Artery Disease, Hx Hypertension Denies: Hx Pacemaker/ICD GI History: Reports: Hx Gastroesophageal Reflux Disease History: Reports: Other Problems/Disorders - Frequent urination, undiagnosed. Denies: Hx Renal Disease Musculoskeletal History: Reports: Other Musculoskeletal History - Left knee surgery. Sensory History: Reports: Hx Contacts or Glasses Opthamlomology History: Reports: Hx Contacts or Glasses Neurological History: Reports: Hx Seizures - epilepsy vs. psychogenic seizures Denies: Other Neuro Impairments/Disorders Psychiatric History: Reports: Hx Anxiety, Hx Depression, Hx Suicide Attempt Denies: Hx Panic Disorder - Surgical History Surgery Procedure, Year, and Place: LEFT ACL REPAIR - Immunization History Date of Tetanus Vaccine: UTD Date of Influenza Vaccine: UTD Infectious Disease History: Denies: Hx Clostridium Difficile, Hx Hepatitis, Hx Human Immunodeficiency Virus (HIV), Hx of Known/Suspected MRSA, Hx Shingles, Hx Tuberculosis, Hx Known/ Suspected VRE, Hx Known/Suspected VRSA, History Other Infectious Disease, Traveled Outside the [place] in Last 30 Days - Family History Known Family History: Negative: Cardiac Disease, Diabetes - Social History Alcohol Use: None Hx Substance Use: No Substance Use Type: Reports: None Hx Tobacco Use: No Smoking Status (MU): Never Smoked Tobacco Have You Smoked in the Last Year: No Review of Systems Positive: Fever Eyes: Negative ENT: Negative Cardiovascular: Negative Respiratory: Negative Positive: Abdominal Pain Positive: flank pain - L side Musculoskeletal: Negative Skin: Negative Neurological: Negative Psychological: Normal All Other Systems Reviewed And Are Negative: Yes Physical Exam Triage Information Reviewed: Yes Vital Signs On Initial Exam: Initial Vitals Temp Pulse Resp BP Pulse Ox 99.2 F 64 18 138/84 96 03/04/17 18:49 03/04/17 18:49 03/04/17 18:49 03/04/17 18:49 03/04/17 18:49 Vital Signs Reviewed: Yes Appearance: Positive: Pain Distress - mild discomfort, Obese Skin: Positive: Warm Head/Face: Positive: Normal Head/Face Inspection Eyes: Positive: VIOLETA ENT: Positive: Hearing grossly normal Diagnostics - Vital Signs Vital Signs Temp Pulse Resp BP Pulse Ox 03/04/17 18:49 99.2 F 64 18 138/84 96 - Laboratory Result Diagrams: 03/04/17 20:20 03/04/17 20:20 Lab Statement: Any lab studies that have been ordered have been reviewed, and results considered in the medical decision making process. Back Pain Course/Dx - Course Assessment/Plan: 61 y/o male BIBA c/o sudden onset L side flank pain starting last night. The pain was rated 10/10 at triage. Pt states he developed ABD pain when he arrived at the ED. Associated sx: ecchymosis over R knee, low grade fever per . PMHx blood clots, known DVT and known PE. Pt will be d/c home with f/u with PCP. Pt is instructed to continue current treatment. - Diagnoses Provider Diagnoses: Back pain, Flank pain Discharge - Discharge Plan Condition: Stable Disposition: HOME Patient Education Materials: Flank Pain (ED), Back Pain (ED) Referrals: Luigi Pillai MD [Primary Care Provider] - 3 Days (F/u in 2-3 days) Additional Instructions: PLEASE CONTINUE CURRENT TREATMENT The documentation as recorded by the Briseida heart Edward accurately reflects the service I personally performed and the decisions made by , Darren Leal MD.
[2017-03-04 20:32] LABS: Hematocrit 38 % (42-52); Hemoglobin 12.1 g/dl (14.0-18.0); Mean Corpuscular HGB Conc 32 g/dl (31-36); Mean Corpuscular Hemoglobin 30 pg (27-31); Mean Corpuscular Volume 92 fL (80-94); Mean Platelet Volume 10 um3 (7.4-10.4); Red Blood Count 4.07 10^6/ul (4.0-5.4); Red Cell Distribution Width 14 % (10.5-15); White Blood Count 13.7 10^3/ul (3.5-10.8)
[2017-03-04 20:51] LABS: Albumin 3.9 g/dL (3.2-5.2); BUN/Creatinine Ratio 9.9 (8-20); C Reactive Protein 39.13 mg/L (< 5.00); EGFR Non-African American 31.9 (>60); Globulin 3.5 g/dL (2-4); Total Protein 7.4 g/dL (6.4-8.9)
[2017-03-04 20:55] LABS: Potassium 4.3 mmol/L (3.5-5.0)
[2017-03-04 21:12] LABS: Calcium 9.6 mg/dL (8.6-10.3); Total Bilirubin 0.8 mg/dL (0.2-1.0)
[2017-03-04 22:04] VITALS: BP 157/80
[2017-03-04 22:11] LABS: Budding Yeast Present (Absent); Urine Bacteria Absent (Absent); Urine Bilirubin Negative (Negative); Urine Glucose Negative (Negative); Urine Nitrite Negative (Negative)
[2017-03-04] MEDS ORDERED: HYDROcodone/ACETAMIN 5-325 MG* 1 TAB PO ONE (22:20)
== END 2017-03-04 22:35 | disposition home or self-care (01) ==
LOC: ED 18:10
DX: M54.9 Dorsalgia, unspecified (principal); R50.9 Fever, unspecified; R10.84 Generalized abdominal pain
CPT/HCPCS: 36415; 80053; 81003; 81015; 83605; 85025; 85610; 86140; 96374; 99283; J2270

== ENCOUNTER 2018-01-01 09:18 | Inpatient (IN) | payer MEDICAID, MEDICARE, OTHER ==
[2018-01-01 10:22] LABS: ABS Basophils 0.1 10^3/ul (0-0.2); ABS Eosinophils 0.1 10^3/ul (0-0.6); ABS Lymphocytes 1.5 10^3/ul (1.0-4.8); ABS Monocytes 0.6 10^3/ul (0-0.8); ABS Nucleated RBC 0 10^3/ul; Eosinophil % 1.7 % (0-6); Hematocrit 41 % (42-52); Hemoglobin 13.6 g/dl (14.0-18.0); Lymphocyte % 27.8 % (25-47); Mean Corpuscular HGB Conc 34 g/dl (31-36); Mean Corpuscular Hemoglobin 30 pg (27-31); Mean Corpuscular Volume 90 fL (80-94); Mean Platelet Volume 8.9 um3 (7.4-10.4); Nucleated Red Blood Cells % 0.1; Platelet Count 162 10^3/ul (150-450); Red Blood Count 4.51 10^6/ul (4.0-5.4); Red Cell Distribution Width 14 % (10.5-15); White Blood Count 5.3 10^3/ul (3.5-10.8)
[2018-01-01 10:28] LABS: INR 1.07 (0.77-1.02)
[2018-01-01 10:54] LABS: EGFR Non-African American 54.7 (>60)
[2018-01-01 12:30] LABS: Urine Appearance Clear; Urine Blood Negative (Negative); Urine Color Yellow; Urine Ketones Negative (Negative); Urine Protein 1+(30 mg/dL) (Negative); Urine Specific Gravity 1.032 (1.010-1.030); Urine Urobilinogen Positive (Negative)
--- NOTE | 2018-01-01 12:47 | RAD ---
INDICATION: Altered mental status and a patient with a history of strokes COMPARISON: Multiple CTs of the brain most recently dated February 15, 2017. TECHNIQUE: Contiguous axial sections of the brain were obtained from the skull base to the vertex without contrast. FINDINGS: Unless otherwise specified comparisons below reference to February 15, 2017 CT of the brain. The ventricles, cisterns and sulci exhibit mild symmetrical involutional similar in appearance to the previous CT examination.. There is a stable 4.6 cm area of encephalomalacia involving the left temporal and parietal lobes. This is unchanged from the previous CT of the brain. At the right basal ganglia there is a hypoattenuating focus measuring 11 mm unchanged from the prior CT examination. Elsewhere there is mild to moderate periventricular and subcortical white matter hypoattenuation most consistent with chronic microvascular disease. There is no evidence for intracranial hemorrhage. No significant focal osseous abnormality is present. The visualized portion of the paranasal sinuses appear clear. The mastoid air cells are well aerated bilaterally. IMPRESSION: Stable encephalomalacia and evidence of chronic microvascular disease with no substantial change since the February 15, 2017 CT of the brain.
[2018-01-01] MEDS ORDERED: Calcium Carbonate CHEW TAB* 500 MG (TUMS) PO PRN (15:33)
[2018-01-01] MEDS: Acetaminophen TAB* 325 MG PO PRN (17:12)
[2018-01-01] MEDS: Metoprolol Tartrate TAB* 50 mg PO SCH (17:12)
[2018-01-01] MEDS: NS 0.9% 1000 ML* 1,000 ML IV SCH (17:13)
[2018-01-01] MEDS: cefTRIAXone(*) 1 GM in NS 0.9% 50 ML* 50 ML IVPB SCH (17:13)
[2018-01-01] MEDS: levETIRAcetam TAB* 500 MG PO SCH (21:22)
[2018-01-01] MEDS: Atorvastatin* 20 MG TAB PO SCH (21:22)
[2018-01-01] MEDS: Gabapentin CAP(*) 100 MG PO SCH (21:23)
[2018-01-01] MEDS: Famotidine TAB* 20 MG PO SCH (21:23)
[2018-01-01] MEDS: Topiramate TAB(*) 100 MG PO SCH (21:23)
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
[2018-01-02] MEDS: NS 0.9% 1000 ML* 1,000 ML IV SCH (06:19)
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
[2018-01-02] MEDS: Famotidine TAB* 20 MG PO SCH ×2 (08:50→20:54)
[2018-01-02] MEDS: Topiramate TAB(*) 100 MG PO SCH ×2 (08:50→20:54)
[2018-01-02] MEDS: Potassium Chlor TAB* 20 MEQ TAB.ER PO SCH (08:50)
[2018-01-02] MEDS: Clopidogrel TAB* 75 MG PO SCH (08:50)
[2018-01-02] MEDS: Cyanocobalamin TAB* 500 MCG PO SCH (08:50)
[2018-01-02] MEDS: levETIRAcetam TAB* 500 MG PO SCH ×2 (08:51→20:54)
[2018-01-02] MEDS: Rivaroxaban TAB(*) 20 MG TAB PO SCH (08:51)
[2018-01-02] MEDS: Gabapentin CAP(*) 100 MG PO SCH ×3 (08:51→20:53)
[2018-01-02] MEDS: Multivitamins/Minerals TAB PO SCH (08:51)
[2018-01-02] MEDS: Metoprolol Tartrate TAB* 50 mg PO SCH (08:52)
[2018-01-02] MEDS ORDERED: Metoprolol Tartrate TAB* 50 mg PO SCH (09:00)
[2018-01-02] MEDS: cefTRIAXone(*) 1 GM in NS 0.9% 50 ML* 50 ML IVPB SCH (15:14)
[2018-01-02] MEDS: Atorvastatin* 20 MG TAB PO SCH (20:54)
[2018-01-03] MEDS: Acetaminophen TAB* 325 MG PO PRN ×2 (04:15→21:30)
[2018-01-03 05:53] LABS: Hematocrit 39 % (42-52); Hemoglobin 13.1 g/dl (14.0-18.0); Mean Corpuscular HGB Conc 34 g/dl (31-36); Mean Corpuscular Hemoglobin 30 pg (27-31); Mean Corpuscular Volume 89 fL (80-94); Mean Platelet Volume 8.5 um3 (7.4-10.4); Platelet Count 153 10^3/ul (150-450); Red Blood Count 4.37 10^6/ul (4.0-5.4); Red Cell Distribution Width 14 % (10.5-15); White Blood Count 5.9 10^3/ul (3.5-10.8)
[2018-01-03 06:15] LABS: EGFR Non-African American 52.4 (>60)
[2018-01-03] MEDS: Multivitamins/Minerals TAB PO SCH (09:35)
[2018-01-03] MEDS: levETIRAcetam TAB* 500 MG PO SCH ×2 (09:35→21:30)
[2018-01-03] MEDS: Rivaroxaban TAB(*) 20 MG TAB PO SCH (09:35)
[2018-01-03] MEDS: Clopidogrel TAB* 75 MG PO SCH (09:35)
[2018-01-03] MEDS: Topiramate TAB(*) 100 MG PO SCH ×2 (09:35→21:29)
[2018-01-03] MEDS: Potassium Chlor TAB* 20 MEQ TAB.ER PO SCH (09:35)
[2018-01-03] MEDS: Famotidine TAB* 20 MG PO SCH ×2 (09:36→21:30)
[2018-01-03] MEDS: Gabapentin CAP(*) 100 MG PO SCH ×3 (09:36→21:30)
[2018-01-03] MEDS: Cyanocobalamin TAB* 500 MCG PO SCH (09:36)
[2018-01-03] MEDS: Metoprolol Tartrate TAB* 50 mg PO SCH (09:36)
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
[2018-01-03 14:44] LABS: Urine Appearance Clear; Urine Blood Negative (Negative); Urine Color Yellow; Urine Ketones Negative (Negative); Urine Protein Negative (Negative); Urine Specific Gravity 1.014 (1.010-1.030); Urine Urobilinogen Negative (Negative)
[2018-01-03] MEDS: cefTRIAXone(*) 1 GM in NS 0.9% 50 ML* 50 ML IVPB SCH (16:00)
[2018-01-03] MEDS: Atorvastatin* 20 MG TAB PO SCH (21:29)
[2018-01-04] MEDS: Clopidogrel TAB* 75 MG PO SCH (09:42)
[2018-01-04] MEDS: Multivitamins/Minerals TAB PO SCH (09:42)
[2018-01-04] MEDS: Cyanocobalamin TAB* 500 MCG PO SCH (09:42)
[2018-01-04] MEDS: Rivaroxaban TAB(*) 20 MG TAB PO SCH (09:42)
[2018-01-04] MEDS: Gabapentin CAP(*) 100 MG PO SCH ×3 (09:42→21:22)
[2018-01-04] MEDS: Famotidine TAB* 20 MG PO SCH ×2 (09:42→21:22)
[2018-01-04] MEDS: levETIRAcetam TAB* 500 MG PO SCH ×2 (09:42→21:22)
[2018-01-04] MEDS: Topiramate TAB(*) 100 MG PO SCH ×2 (09:43→21:25)
[2018-01-04] MEDS: Metoprolol Tartrate TAB* 50 mg PO SCH (09:43)
[2018-01-04] MEDS: Potassium Chlor TAB* 20 MEQ TAB.ER PO SCH (09:43)
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
[2018-01-04] MEDS: cefTRIAXone(*) 1 GM in NS 0.9% 50 ML* 50 ML IVPB SCH (15:38)
[2018-01-04] MEDS: Atorvastatin* 20 MG TAB PO SCH (21:23)
[2018-01-04] MEDS ORDERED: Melatonin 3 MG TAB PO PRN (21:54)
[2018-01-05] MEDS: Gabapentin CAP(*) 100 MG PO SCH (08:14)
[2018-01-05] MEDS: levETIRAcetam TAB* 500 MG PO SCH (08:15)
[2018-01-05] MEDS: Metoprolol Tartrate TAB* 50 mg PO SCH (08:15)
[2018-01-05] MEDS: Potassium Chlor TAB* 20 MEQ TAB.ER PO SCH (08:15)
[2018-01-05] MEDS: Famotidine TAB* 20 MG PO SCH (08:15)
[2018-01-05] MEDS: Cyanocobalamin TAB* 500 MCG PO SCH (08:15)
[2018-01-05] MEDS: Multivitamins/Minerals TAB PO SCH (08:15)
[2018-01-05] MEDS: Rivaroxaban TAB(*) 20 MG TAB PO SCH (08:15)
[2018-01-05] MEDS: Clopidogrel TAB* 75 MG PO SCH (08:15)
[2018-01-05] MEDS: Topiramate TAB(*) 100 MG PO SCH (08:15)
[2018-01-05 08:48] VITALS: BP 142/91
== END 2018-01-05 11:50 | DRG 72 ==
LOC: ED 09:18 → MED 15:12 → OBSVTOIN 01-03 16:00
PROVIDERS: ADMIT Internal Medicine; ATTEND Internal Medicine
DX: G93.89 Other specified disorders of brain (principal); I69.198 Other sequelae of nontraumatic intracerebral hemorrhage; I25.10 Atherosclerotic heart disease of native coronary artery without angina pectoris; Z86.711 Personal history of pulmonary embolism; G40.909 Epilepsy, unspecified, not intractable, without status epilepticus; F43.10 Post-traumatic stress disorder, unspecified; E78.5 Hyperlipidemia, unspecified; Z86.718 Personal history of other venous thrombosis and embolism; I48.0 Paroxysmal atrial fibrillation; F32.9 Major depressive disorder, single episode, unspecified; R41.89 Other symptoms and signs involving cognitive functions and awareness; Z86.73 Personal history of transient ischemic attack (TIA), and cerebral infarction without residual deficits; N18.3 Chronic kidney disease, stage 3 (moderate); I12.9 Hypertensive chronic kidney disease with stage 1 through stage 4 chronic kidney disease, or unspecified chronic kidney disease; K21.9 Gastro-esophageal reflux disease without esophagitis; D64.9 Anemia, unspecified; Z88.6 Allergy status to analgesic agent; Z88.8 Allergy status to other drugs, medicaments and biological substances; Z82.49 Family history of ischemic heart disease and other diseases of the circulatory system; Z83.3 Family history of diabetes mellitus; Z82.3 Family history of stroke; Z80.9 Family history of malignant neoplasm, unspecified; F41.9 Anxiety disorder, unspecified; Z91.5 Personal history of self-harm; R40.2362 Coma scale, best motor response, obeys commands, at arrival to emergency department; R40.2142 Coma scale, eyes open, spontaneous, at arrival to emergency department; R40.2242 Coma scale, best verbal response, confused conversation, at arrival to emergency department; Z59.0 Homelessness; Z79.02 Long term (current) use of antithrombotics/antiplatelets; Z79.01 Long term (current) use of anticoagulants; I69.122 Dysarthria following nontraumatic intracerebral hemorrhage; I69.120 Aphasia following nontraumatic intracerebral hemorrhage
CPT/HCPCS: 36415; 70450; 80053; 80307; 80320; 80329; 81003; 81015; 82140; 82607; 82746; 83605; 83735; 84443; 85025; 85027; 85610; 86140; 86592; 87086; 99284; A9270-GY; G0378; G0480; G8978-GP-CK; G8979-GP-CI; G8987-GO-CK; G8988-GO-CI; J0696

== ENCOUNTER 2018-02-02 11:34 | Observation (INO) | payer OTHER ==
--- NOTE | 2018-02-02 11:58 | ED ---
HPI Chest Pain - HPI Summary HPI Summary: This pt is a 62 y/o male presenting to [facility] via EMS from [facility] c/o chest pain since this morning. Pt reports at onset of his pain he was at rest sitting down. He notes his chest pain was "all over." He describes chest pain radiating through his back and down left arm. Additionally states nausea and vomiting last night. EMS administered aspirin and nitroglycerin with full resolution of chest pain. Currently pt denies any chest pain. PMHx includes NH, CVA, HTN. Pt has neurological deficits of right sided weakness and voice hoarseness. FHx: mother and father with cardiac disease. Pre-hospital EKG showed ST depression in aVF only. - History of Current Complaint Time Seen by Provider: 02/02/18 11:43 Hx Obtained From: Patient Onset/Duration: Started Hours Ago, Resolved Timing: Lasting Hours Initial Severity: Severe Current Severity: None Pain Intensity: 0 Pain Scale Used: 0-10 Numeric Chest Pain Location: Diffuse Chest Pain Radiates: Yes Chest Pain Radiates To:: Back, Arm - left Aggravating Factor(s): Nothing Alleviating Factor(s): NTG 123, EMS Tx - Nitro and aspirin Associated Signs and Symptoms: Positive: Chest Pain, Nausea, Vomiting. Negative : Shortness of Breath, Fever, Chills, Diaphoresis - Additional Pertinent History Primary Care Physician: [id number] - Allergy/Home Medications Allergies/Adverse Reactions: Allergies Allergy/AdvReac Type Severity Reaction Status Date / Time oxycodone Allergy Unknown Verified 01/01/18 09:30 Reaction Details Home Medications: Home Medications Acetaminophen TAB* [Tylenol TAB*] 650 mg PO Q4H PRN 02/02/18 [History Confirmed 02/02/18] Calcium Carbonate CHEW TAB* [Tums*] 1,000 mg PO Q6H PRN 02/02/18 [History Confirmed 02/02/18] Capsaicin 0.1 % TOPICAL TID PRN 02/02/18 [History Confirmed 02/02/18] Carbamide Peroxide 6.5% OTIC* [DEBROX 6.5% Otic*] 1 drop BOTH EARS BID 02/02/18 [History Confirmed 02/02/18] Clopidogrel TAB* [Plavix TAB*] 75 mg PO DAILY 02/02/18 [History Confirmed ] Cyanocobalamin TAB* [Vitamin B12 TAB*] 500 mcg PO DAILY 02/02/18 [History Confirmed 02/02/18] Ethosuximide CAP* [Zarontin CAP*] 250 mg PO BID 02/02/18 [History Confirmed 06/12] Famotidine TAB* [Pepcid 20 MG TAB*] 20 mg PO BID 02/02/18 [History Confirmed 06/12] Gabapentin CAP(*) [Neurontin 100 mg CAP(*)] 100 mg PO TID 02/02/18 [History Confirmed 02/02/18] Meclizine TAB* [Antivert 12.5 TAB*] 12.5 mg PO BID PRN 02/02/18 [History Confirmed 02/02/18] Metoprolol Tartrate TAB* [Lopressor TAB*] 25 mg PO BID 02/02/18 [History Confirmed 02/02/18] Multivitamins/Minerals TAB* [Theragran/minerals TAB*] 1 tab PO DAILY 02/02/18 [ History Confirmed 02/02/18] Nitroglycerin TAB 0.4 MG* 0.4 mg SL Q5M PRN 02/02/18 [History Confirmed 02/02/18 ] Potassium Chlor TAB* [Klor Con ER TAB*] 20 meq PO DAILY 02/02/18 [History Confirmed 02/02/18] Rivaroxaban TAB(*) [Xarelto 20 mg] 20 mg PO DAILY 02/02/18 [History Confirmed ] Simvastatin (NF) [Zocor (NF)] 40 mg PO BEDTIME 02/02/18 [History Confirmed 02/02] Topiramate TAB(*) [Topamax 100 mg tab] 100 mg PO BID 02/02/18 [History Confirmed 02/02/18] traZODone TAB* [Desyrel TAB*] 50 mg PO BEDTIME 02/02/18 [History Confirmed 02/02] PMH/Surg Hx/FS Hx/Imm Hx Endocrine/Hematology History: Reports: Hx Anticoagulant Therapy Denies: Hx Diabetes Cardiovascular History: Reports: Hx Angina, Hx Coronary Artery Disease, Hx Embolism - PE, Hx Hypertension Denies: Hx Pacemaker/ICD Respiratory History: Reports: Hx Pulmonary Embolism GI History: Reports: Hx Gastroesophageal Reflux Disease History: Reports: Other Problems/Disorders - Frequent urination, undiagnosed. Denies: Hx Renal Disease Musculoskeletal History: Reports: Other Musculoskeletal History - Left knee surgery. Sensory History: Reports: Hx Contacts or Glasses Denies: Hx Hearing Aid Opthamlomology History: Reports: Hx Contacts or Glasses Neurological History: Reports: Hx CVA - "x 7" per pt , Hx Seizures - absent seizures vs. psychogenic nonepileptic Denies: Other Neuro Impairments/Disorders Psychiatric History: Reports: Hx Anxiety, Hx Depression, Hx Suicide Attempt Denies: Hx Panic Disorder - Surgical History Surgery Procedure, Year, and Place: LEFT ACL REPAIR - Immunization History Date of Tetanus Vaccine: UTD Date of Influenza Vaccine: UTD Infectious Disease History: Denies: Hx Clostridium Difficile, Hx Hepatitis, Hx Human Immunodeficiency Virus (HIV), Hx of Known/Suspected MRSA, Hx Shingles, Hx Tuberculosis, Hx Known/ Suspected VRE, Hx Known/Suspected VRSA, History Other Infectious Disease, Traveled Outside the [place] in Last 30 Days - Family History Known Family History: Positive: Cardiac Disease - mother and father Negative: Diabetes - Social History Alcohol Use: None Hx Substance Use: No Substance Use Type: Reports: None Hx Tobacco Use: No Smoking Status (MU): Never Smoked Tobacco Have You Smoked in the Last Year: No Review of Systems Negative: Fever, Chills, Skin Diaphoresis Positive: Chest Pain Negative: Shortness Of Breath Positive: Vomiting, Nausea Musculoskeletal: Negative Skin: Negative All Other Systems Reviewed And Are Negative: Yes Physical Exam - Summary Physical Exam Summary: Appearance: Well appearing, no pain distress Skin: warm, dry, reflects adequate perfusion Head/face: normal Eyes: EOMI, VIOLETA ENT: Hoarse voice. Mucous membranes are moist. Neck: supple, non-tender Respiratory: CTA, breath sounds present Cardiovascular: Bradycardic, no murmur, pulses symmetrical Abdomen: non-tender, soft Bowel: present Musculoskeletal: 1 to 2+ pitting edema bilaterally in LE. Neuro: A&Ox3. Decreased movement against gravity on the right side and hoarse voice. Triage Information Reviewed: Yes Vital Signs Reviewed: Yes Diagnostics - Laboratory Result Diagrams: 02/02/18 12:06 02/02/18 12:06 Lab Statement: Any lab studies that have been ordered have been reviewed, and results considered in the medical decision making process. - Radiology Chest XR Xray Interpretation: No Acute Changes - IMPRESSION: No active cardiopulmonary disease. Dr. Mtz has reviewed this radiology report. Radiology Interpretation Completed By: Radiologist - EKG 11:54 Cardiac Rate: Bradycardia - at 55 bpm EKG Rhythm: Sinus Bradycardia ST Segment: Normal - but with artifact in V4, V5 EKG Interpretation: Normal axis and intervals. 11:55 Cardiac Rate: Bradycardia - at 51 bpm EKG Rhythm: Sinus Bradycardia ST Segment: Normal EKG Interpretation: Normal axis, intervals, and ST. Chest Pain Course/Dx - Course Course Of Treatment: Patient presents with multiple risk factors and chest pain relieved by nitroglycerin. This did not recur here. It began at rest. Heart scores moderately high at 4-5. Initial troponin is not elevated. First EKG shows no ST changes. Admit to hospitalist for further. - Chest Pain Differential Diagnosis/HQI/PQRI: Acute NH, ACS, CHF, Chest Wall, GI Disease, Lower Respiratory Infection, Pulmonary Edema, Pulmonary Embolism - Diagnoses Provider Diagnoses: Chest pain, Unstable angina - Provider Notifications Discussed Care Of Patient With: Mathew Urban Time Discussed With Above Provider: 13:39 Instructed by Provider To: Admit As Inpatient Discharge - Sign-Out/Discharge Documenting (check all that apply): Patient Departure - Admit - Discharge Plan Condition: Fair Disposition: ADMITTED TO [facility] Referrals: Luigi Pillai MD [Primary Care Provider] - - Billing Disposition and Condition Condition: FAIR Disposition: Admitted to [facility]
[2018-02-02 12:17] LABS: ABS Basophils 0 10^3/ul (0-0.2); ABS Eosinophils 0.1 10^3/ul (0-0.6); ABS Lymphocytes 1.6 10^3/ul (1.0-4.8); ABS Monocytes 0.6 10^3/ul (0-0.8); ABS Neutrophils 3.1 10^3/ul (1.5-7.7); ABS Nucleated RBC 0 10^3/ul; Eosinophil % 1.6 % (0-6); Hematocrit 38 % (42-52); Hemoglobin 12.7 g/dl (14.0-18.0); Lymphocyte % 29.5 % (25-47); Mean Corpuscular HGB Conc 34 g/dl (31-36); Mean Corpuscular Hemoglobin 30 pg (27-31); Mean Corpuscular Volume 89 fL (80-94); Mean Platelet Volume 9.3 um3 (7.4-10.4); Nucleated Red Blood Cells % 0.1; Platelet Count 174 10^3/ul (150-450); Red Blood Count 4.23 10^6/ul (4.00-5.40); Red Cell Distribution Width 14 % (10.5-15); White Blood Count 5.4 10^3/ul (3.5-10.8)
[2018-02-02 12:39] LABS: EGFR Non-African American 55.1 (>60)
--- NOTE | 2018-02-02 12:58 | RAD ---
HISTORY: Chest pain COMPARISONS: February 15, 2017 VIEWS: 1: frontal portable view of the chest at 12:34 PM FINDINGS: LINES AND TUBES: None. CARDIOMEDIASTINAL SILHOUETTE: The cardiomediastinal silhouette is normal for portable technique. PLEURA: The costophrenic angles are sharp. No pleural abnormalities are noted. LUNG PARENCHYMA: The lungs are clear. ABDOMEN: The upper abdomen is clear. There is no subphrenic gas. BONES AND SOFT TISSUES: No bone or soft tissue abnormalities are noted. IMPRESSION: NO ACTIVE CARDIOPULMONARY DISEASE.
[2018-02-02] MEDS ORDERED: Morphine VIAL* 4 MG/ML VIAL (1 ml vial) IV PRN (14:58)
[2018-02-02] MEDS ORDERED: Albuterol 2.5 MG/3 ML NEB.SOL* (0.083%) INH PRN (14:58)
[2018-02-02] MEDS ORDERED: Al Hydrox/Mg Hydrox/Simet LIQ* 30 ML UDC PO PRN (14:58)
[2018-02-02] MEDS ORDERED: Ondansetron INJ* 2 MG/ML VIAL IV PRN (14:58)
[2018-02-02] MEDS ORDERED: Magnesium Hydroxide LIQ* 30 ML UDC PO PRN (14:58)
[2018-02-02] MEDS ORDERED: Acetaminophen TAB* 325 MG PO PRN (14:58)
[2018-02-02] MEDS ORDERED: Nitroglycerin TAB 0.4 MG* 0.4 MG TAB SL PRN (15:04)
[2018-02-02] MEDS ORDERED: Calcium Carbonate CHEW TAB* 500 MG (TUMS) PO PRN (15:04)
[2018-02-02] MEDS ORDERED: Meclizine TAB* 12.5 MG PO PRN (15:04)
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
[2018-02-02] MEDS: Famotidine TAB* 20 MG PO SCH (19:58)
[2018-02-02] MEDS: Gabapentin CAP(*) 100 MG PO SCH (19:59)
[2018-02-02] MEDS: Topiramate TAB(*) 100 MG PO SCH (19:59)
[2018-02-02] MEDS ORDERED: Zolpidem TAB* 5 MG PO ONE (20:10)
[2018-02-02] MEDS: Ethosuximide CAP* 250 MG PO SCH (20:23)
[2018-02-02] MEDS: Metoprolol Tartrate TAB* 25 MG PO SCH (20:23)
[2018-02-02] MEDS: Carbamide Peroxide 6.5% OTIC* 15 ML BTL BOTH EARS SCH (20:24)
[2018-02-02] MEDS ORDERED: Atorvastatin* 20 MG TAB PO SCH (21:00)
[2018-02-02] MEDS ORDERED: traZODone TAB* 50 MG TAB PO SCH (21:00)
[2018-02-03 07:23] LABS: Hematocrit 40 % (42-52); Hemoglobin 13.5 g/dl (14.0-18.0); Mean Corpuscular HGB Conc 34 g/dl (31-36); Mean Corpuscular Hemoglobin 30 pg (27-31); Mean Corpuscular Volume 88 fL (80-94); Red Blood Count 4.51 10^6/ul (4.00-5.40); Red Cell Distribution Width 14 % (10.5-15); White Blood Count 7.4 10^3/ul (3.5-10.8)
[2018-02-03 07:38] LABS: EGFR Non-African American 59.3 (>60)
[2018-02-03 07:44] LABS: ABS Basophils 0.1 10^3/ul (0-0.2); ABS Eosinophils 0.2 10^3/ul (0-0.6); ABS Monocytes 0.7 10^3/ul (0-0.8); ABS Neutrophils 4.3 10^3/ul (1.5-7.7); ABS Nucleated RBC 0 10^3/ul; Eosinophil % 2.6 % (0-6); Lymphocyte % 27.1 % (25-47); Mean Platelet Volume 9.5 um3 (7.4-10.4); Nucleated Red Blood Cells % 0; Platelet Count 154 10^3/ul (150-450)
[2018-02-03] MEDS: Topiramate TAB(*) 100 MG PO SCH (08:48)
[2018-02-03] MEDS: Famotidine TAB* 20 MG PO SCH (08:48)
[2018-02-03] MEDS: Metoprolol Tartrate TAB* 25 MG PO SCH (08:48)
[2018-02-03] MEDS: Gabapentin CAP(*) 100 MG PO SCH ×2 (08:49→15:14)
[2018-02-03] MEDS: Ethosuximide CAP* 250 MG PO SCH (08:51)
[2018-02-03] MEDS: Carbamide Peroxide 6.5% OTIC* 15 ML BTL BOTH EARS SCH (08:55)
[2018-02-03] MEDS ORDERED: Multivitamins/Minerals TAB PO SCH (09:00)
[2018-02-03] MEDS ORDERED: Potassium Chlor TAB* 20 MEQ TAB.ER PO SCH (09:00)
[2018-02-03] MEDS ORDERED: Clopidogrel TAB* 75 MG PO SCH (09:00)
[2018-02-03] MEDS ORDERED: Rivaroxaban TAB(*) 20 MG TAB PO SCH (09:00)
[2018-02-03] MEDS ORDERED: Cyanocobalamin TAB* 500 MCG PO SCH (09:00)
[2018-02-03] MEDS ORDERED: LORazepam INJ* 2 MG/ML 1 ML VIAL ONE (09:21)
[2018-02-03] MEDS ORDERED: Regadenoson* 0.4 MG/5 ML SYRINGE ONE (09:21)
--- NOTE | 2018-02-03 11:23 | ECHO ---
Patient: BRENDAN WEEMS [facility] Rec#: [id number] : 1955 Date: 02/03/2018 Age: 62y Height: 182.9 cm / 72.0 in Weight: 136.1 kg / 300.0 lbs Sex: M BSA: 2.5 Room#: 438 Admit Date#: 02/02/2018 Type: Inpatient Referring: Malik Vila Reading: Alonzo Cook MD Shoe Cementer: Linda Gan RN RDCS CC: Luigi Pillai MD Transthoracic Echocardiogram Indication: Chest pain BP: 140/89 HR: 47 Rhythm: Bradycardia Findings History: HTN, HLD, DVT/PE, multiple CVAs, obesity Technical Comments: The study quality is fair. The study is technically limited due to patient body habitus. Completed at 0855. Left Ventricle: The left ventricular chamber size is normal. Mild concentric left ventricular hypertrophy is observed. Global left ventricular wall motion and contractility are within normal limits. There is normal left ventricular systolic function. The estimated ejection fraction is 60-65%. There is an E to A reversal in the mitral valve flow pattern suggestive of diastolic dysfunction. Left Atrium: The left atrium is mildly dilated. Right Ventricle: The right ventricular cavity size is normal. The right ventricular global systolic function is normal. Right Atrium: The right atrium is mildly dilated. Aortic Valve: The aortic valve is trileaflet. The aortic valve leaflets are mildly thickened. There is aortic annular calcification. There is no evidence of aortic regurgitation. There is no evidence of aortic stenosis. Mitral Valve: The mitral valve leaflets are mildly thickened. There is a trace of mitral regurgitation. Tricuspid Valve: The tricuspid valve leaflets are normal. There is trace tricuspid regurgitation. No pulmonary hypertension is noted. Pulmonic Valve: The pulmonic valve structure is not well visualized. There is no evidence of pulmonic regurgitation. There is no pulmonic stenosis. Pericardium: There is no significant pericardial effusion. A pericardial fat pad is visualized. Aorta: There is moderate dilatation of the ascending aorta. There is no dilatation of the aortic arch. There is mild dilatation of the aortic root. Pulmonary Artery: The main pulmonary artery is not well visualized. Venous: The venous system is not well visualized. The inferior vena cava is not visualized. Conclusions There is normal left ventricular systolic function. The estimated ejection fraction is 60-65%. Global left ventricular wall motion and contractility are within normal limits. The left ventricular chamber size is normal. Mild concentric left ventricular hypertrophy is observed. There is an E to A reversal in the mitral valve flow pattern suggestive of diastolic dysfunction. The left atrium is mildly dilated. The right atrium is mildly dilated. Functionally benign heart valves. There is moderate dilatation of the ascending aorta. There is mild dilatation of the aortic root. Since the prior echocardiogram completed 02/16/17, there appears to be little change. Measurements Name Value Normal Range RVDdMajor (2D) 3.8 cm (2.2 - 4.4) RAd ISD 4CH 4.4 cm (3.4 - 4.9) RA (A4C)W 4.9 cm (2.9 - 4.6) IVSd (2D) 1.1 cm (0.6 - 1) LVPWd (2D) 1.1 cm (0.6 - 1) LVIDd (2D) 4.4 cm (3.6 - 5.4) LVIDs (2D) 3 cm - LV FS (2D) 33 % (25 - 45) Aortic Annulus 2.5 cm (1.4 - 2.6) Ao root diameter (2D) 3.9 cm (2.1 - 3.5) Ascending Ao 4.1 cm (2.1 - 3.4) Aortic arch 3.2 cm (1.8 - 3.4) LA dimension (AP) 2D 3.5 cm (2.3 - 3.8) LAd ISD 4CH 4.7 cm (2.9 - 5.3) LA ISD 4CH W 5.1 cm (2.5 - 4.5) Name Value Normal Range LA ESV SP 4CH (A/L) 61 ml - LA ESV SP 2CH (A/L) 107 ml - LA ESV BP (A/L) 94 ml - LA ESV BP (A/L) index 37 ml/m2 - LA ESV SP 4CH (MOD) 52 ml - LA ESV SP 2CH (MOD) 101 ml - Name Value Normal Range MV E-wave Vmax 0.67 m/sec - MV deceleration time 389 msec - MV A-wave Vmax 0.84 m/sec - MV E:A ratio 0.8 ratio - LV septal e' Vmax 0.06 m/sec - LV lateral e' Vmax 0.07 m/sec - LV E:e' septal ratio 11.2 ratio - LV E:e' lateral ratio 9.6 ratio - Name Value Normal Range AV Vmax 1.4 m/sec - AV VTI 36.5 cm - AV peak gradient 7.9 mmHg - AV mean gradient 4.6 mmHg - LVOT Vmax 1 m/sec - LVOT VTI 27.4 cm - LVOT peak gradient 4 mmHg - LVOT mean gradient 2.3 mmHg - MOSES Vmax 0.51 m/sec - Name Value Normal Range TR Vmax 2.3 m/sec - TR peak gradient 21 mmHg - RAP 8 mmHg - RVSP 29 mmHg - Name Value Normal Range PV Vmax 0.85 m/sec -
--- NOTE | 2018-02-03 13:33 | RAD ---
HISTORY: Chest pain, hypertension, hyperlipidemia COMPARISONS: January 06, 2011 TECHNIQUE: A 1 day stress/rest myocardial perfusion study was performed, with pharmacologic stress. The stress portion was monitored by Dr. Mahmood. Gated SPECT imaging was performed, with CT-based attenuation correction DOSE: Stress: Technetium 99m tetrofosmin, 26.19 millicuries, injected at 11:12 AM on February 03, 2018 Rest: Technetium 99m tetrofosmin, 10.83 millicuries, injected at 6:30 AM on February 03, 2018 Pharmacologic agent: Lexiscan FINDINGS: CARDIAC MONITORING: No EKG criteria ischemia with stress EF: 60% TID: 1.09 MOTION: Normal motion, with normal wall thickening. PERFUSION: There are no fixed or reversible perfusion defects. Small reversible defects on the attenuation corrected polar maps are felt to be artifactual. OTHER: None IMPRESSION: NO DEFINITE FIXED OR REVERSIBLE PERFUSION DEFECTS. ASSESSMENT: LOW RISK. Based on imaging criteria from ACC/AHA 2002. Guideline Update for the Management of Patient's with Chronic Stable Angina, table. Noninvasive Risk Stratification.
[2018-02-03] MEDS ORDERED: amLODIPine TAB* 5 MG PO ONE (16:02)
[2018-02-03 16:07] VITALS: BP 180/88
--- NOTE | 2018-02-03 16:46 | DS ---
CC: Dr. Luigi Pillai * DATE OF ADMISSION: 02/02/2018. DATE OF DISCHARGE: 02/03/2018. PRIMARY CARE PHYSICIAN: Dr. Luigi Pillai at the [facility]. PRINCIPAL DIAGNOSIS: Chest discomfort. SECONDARY DIAGNOSES: 1. Epilepsy. 2. PTSD. 3. Pulmonary embolism. 4. DVT. 5. Hypertension. 6. Hyperlipidemia. 7. Depression. 8. Paroxysmal atrial fibrillation. 9. History of multiple CVA's. 10. CAD. 11. CKD, stage 3. MEDICATIONS ON DISCHARGE: Unchanged from admission, include: 1. Metoprolol Tartrate 25 mg twice daily. 2. Zarontin 250 mg twice daily. 3. Xarelto 20 mg daily. 4. Calcium Carbonate 1,000 mg every 6 hours as needed. 5. Trazodone 50 mg at bedtime. 6. Topamax 100 mg twice daily. 7. Zocor 50 mg at bedtime. 8. Potassium Chloride 20 mEq daily. 9. Pepcid 20 mg twice daily. 10. Clopidogrel 75 mg daily. 11. Nitroglycerin sublingual as needed. 12. Multivitamins one tab daily. 13. Meclizine 12.5 mg twice daily as needed. 14. Gabapentin 100 mg three times a day. 15. Debrox one drop both ears twice daily. 16. Vitamin B12 500 mcg daily. 17. Capsaicin 0.1% topical cream 3 times a day as needed. 18. Acetaminophen 650 mg every 4 hours as needed. PERTINENT LABORATORY DATA: Troponin I 0.00 on three consecutive checks. BNP 50. PROCEDURES PERFORMED DURING HOSPITAL STAY: Chemical stress with nuclear imaging : Assessment: Low risk. Impression: No definite fixed or reversible perfusion defects. EF 60 percent. IMAGING PERFORMED DURING HOSPITAL STAY: Transthoracic echocardiogram: Impression: Normal left ventricular systolic function with an estimated EF of 60 to 65 percent. Mild concentric left ventricular hypertrophy with an E to A reversal in the mitral valve suggestive of diastolic dysfunction. Left atrium is mildly dilated. The right atrium is mildly dilated. Functionally benign heart valves. Moderate dilatation of the ascending aorta. DISPOSITION ON DISCHARGE: To [facility]. HISTORY OF PRESENT ILLNESS AND HOSPITAL COURSE: This 62-year-old gentleman with a complicated past medical history as outlined in the history of present illness on the day of admission presented to the hospital with intermittent episodes of chest discomfort that were happening daily. In retelling his symptoms on evaluation the day of discharge, he indicated to this author that his pain had been persistent and never resolved. He had gone to bed with pain and additionally had been awoken by the pain and was able to go back to sleep, but had been going on for several days, approximately four days. He notes that the patient started around the same time he received bad news and under increased stress in his personal life, including an ongoing divorce from his . He had other stressful news that he had discussed with his daughter that he did not want to share with this author. With the increased anxiety and stress, he had uncomfortable chest discomfort. There was concern for cardiac etiology given his extensive history and he was admitted to the hospital. He had three negative troponins and a negative stress rest. Additionally, his transthoracic echocardiogram did not indicate any regional wall motion abnormalities. These are all reassuring in the setting of persistent chest discomfort that he has had for four days. It seems likely this chest discomfort was in the setting of increased stress in his life. During the course of the stress test, the patient did have an episode of a flashback consistent with symptoms of his PTSD. The patient reports he has flashbacks several times per week and this was similar in character. It resolved on its own. The patient also was witnessed to have several staring episodes thought to be consistent Abson seizures. The patient reports that he has multiple seizures per week. He did not report these to be any different than previous episodes. He was observed in the hospital with no changes from his baseline. He felt back to his baseline at the time of discharge and had no chest discomfort. There will be no changes in his medication. FOLLOW-UP: 1. Assure the patient continues to follow-up regularly with his corporate lawyer, as well as his neurologist and his mental health provider for the aforementioned above chronic medical problems. 2. Support in the setting of his difficulty time for this patient may be important. We discussed at length prior to his discharge. REASONS TO RETURN TO THE HOSPITAL: Including, but not limited to recurrent or worsening symptoms, worsening chest pain, shortness of breath, nausea, vomiting , lightheadedness, loss of consciousness or near loss of consciousness, bleeding from any source, inability to obtain or tolerate medication were discussed with the patient. Greater than 60 minutes were spent in this discharge, of which greater than half were spent [id number] with the patient prior to his discharge. [id number]/[facility] #: [id number] DANA
[2018-02-03] MEDS ORDERED: ETHOSUXIMIDE 250 MG PO SCH (21:00)
== END 2018-02-03 16:40 ==
LOC: ED 11:34 → MEDTELE 14:13
PROVIDERS: ADMIT Internal Medicine; ATTEND Internal Medicine
DX: R07.9 Chest pain, unspecified (principal); G40.909 Epilepsy, unspecified, not intractable, without status epilepticus; R11.2 Nausea with vomiting, unspecified; I20.0 Unstable angina; F43.10 Post-traumatic stress disorder, unspecified; I26.99 Other pulmonary embolism without acute cor pulmonale; I82.409 Acute embolism and thrombosis of unspecified deep veins of unspecified lower extremity; I10 Essential (primary) hypertension; E78.5 Hyperlipidemia, unspecified; F32.9 Major depressive disorder, single episode, unspecified; I48.0 Paroxysmal atrial fibrillation; Z86.73 Personal history of transient ischemic attack (TIA), and cerebral infarction without residual deficits; I25.10 Atherosclerotic heart disease of native coronary artery without angina pectoris; N18.3 Chronic kidney disease, stage 3 (moderate); Z79.01 Long term (current) use of anticoagulants
CPT/HCPCS: 36415; 71045; 78452; 80048; 80053; 80061; 83605; 83880; 84484; 85025; 85610; 87641; 93005; 93017; 93306; 99284; A9270-GY; A9502; G0378; J2060; J2785

== ENCOUNTER 2018-02-16 15:14 | Observation (INO) | payer OTHER ==
--- NOTE | 2018-02-16 16:59 | RAD ---
INDICATION: Back pain. COMPARISON: Comparison is made with a prior chest x-ray study from February 02, 2018. TECHNIQUE: A portable view of the chest was obtained. FINDINGS: Cardiac and mediastinal contours appear to be within normal limits. The lungs are underinflated and grossly clear. No pleural effusion is seen. IMPRESSION: NO EVIDENCE FOR ACUTE DISEASE.
[2018-02-16 17:10] LABS: ABS Basophils 0 10^3/ul (0-0.2); ABS Eosinophils 0.1 10^3/ul (0-0.6); ABS Lymphocytes 1.5 10^3/ul (1.0-4.8); ABS Monocytes 0.6 10^3/ul (0-0.8); ABS Nucleated RBC 0 10^3/ul; Eosinophil % 1.7 % (0-6); Hematocrit 38 % (42-52); Hemoglobin 12.8 g/dl (14.0-18.0); Lymphocyte % 24.3 % (25-47); Mean Corpuscular HGB Conc 34 g/dl (31-36); Mean Corpuscular Hemoglobin 30 pg (27-31); Mean Corpuscular Volume 89 fL (80-94); Nucleated Red Blood Cells % 0; Platelet Count 197 10^3/ul (150-450); Red Blood Count 4.27 10^6/ul (4.00-5.40); Red Cell Distribution Width 14 % (10.5-15); White Blood Count 6.2 10^3/ul (3.5-10.8)
[2018-02-16 17:29] LABS: EGFR Non-African American 52.4 (>60)
--- NOTE | 2018-02-16 17:33 | ED ---
Dizziness - HPI Summary HPI Summary: This is [facility], documenting for attending, Andrew Hein MD. This patient is a 62 year old M presenting to [facility] with a chief complaint of sudden dizziness since yesterday while getting out of bed. He reports nausea and diaphoresis with onset of symptoms, and current back pain. He states he felt like I was going to at onset of symptoms. Denies CP, SOB, dark bowel movements, and dysuria. Denies hx of panic attacks. - History Of Current Complaint Chief Complaint: EDDizziness Stated Complaint: DIZZINESS Time Seen by Provider: 02/16/18 15:42 Hx Obtained From: Patient Onset/Duration: Suddenly Severity Initially: Severe Severity Currently: Moderate Character: Room Spinning Aggravating Factor(s): Supine To Erect Alleviating Factor(s): Nothing Associated Signs And Symptoms: Positive: Nausea, Diaphoresis. Negative: Chest Pain, SOB, Blood In Stool - Allergies/Home Medications Allergies/Adverse Reactions: Allergies Allergy/AdvReac Type Severity Reaction Status Date / Time oxycodone Allergy Unknown Verified 01/01/18 09:30 Reaction Details PMH/Surg Hx/FS Hx/Imm Hx Endocrine/Hematology History: Reports: Hx Anticoagulant Therapy Denies: Hx Diabetes Cardiovascular History: Reports: Hx Angina, Hx Coronary Artery Disease, Hx Embolism - PE, Hx Hypertension Denies: Hx Pacemaker/ICD Respiratory History: Reports: Hx Pulmonary Embolism GI History: Reports: Hx Gastroesophageal Reflux Disease History: Reports: Other Problems/Disorders - Frequent urination, undiagnosed. Denies: Hx Renal Disease Musculoskeletal History: Reports: Other Musculoskeletal History - Left knee surgery. Sensory History: Reports: Hx Contacts or Glasses Denies: Hx Hearing Aid Opthamlomology History: Reports: Hx Contacts or Glasses Neurological History: Reports: Hx CVA - "x 7" per pt , Hx Seizures - absent seizures vs. psychogenic nonepileptic Denies: Other Neuro Impairments/Disorders Psychiatric History: Reports: Hx Anxiety, Hx Depression, Hx Suicide Attempt Denies: Hx Panic Disorder - Surgical History Surgery Procedure, Year, and Place: LEFT ACL REPAIR - Immunization History Date of Tetanus Vaccine: UTD Date of Influenza Vaccine: UTD Infectious Disease History: Yes Infectious Disease History: Denies: Hx Clostridium Difficile, Hx Hepatitis, Hx Human Immunodeficiency Virus (HIV), Hx of Known/Suspected MRSA, Hx Shingles, Hx Tuberculosis, Hx Known/ Suspected VRE, Hx Known/Suspected VRSA, History Other Infectious Disease, Traveled Outside the [place] in Last 30 Days - Family History Known Family History: Positive: Cardiac Disease - mother and father Negative: Diabetes - Social History Alcohol Use: None Hx Substance Use: No Substance Use Type: Reports: None Hx Tobacco Use: No Smoking Status (MU): Never Smoked Tobacco Have You Smoked in the Last Year: No Review of Systems Positive: Skin Diaphoresis. Negative: Fever, Chills Negative: Erythema Negative: Sore Throat Negative: Chest Pain Negative: Shortness Of Breath, Cough Positive: Nausea. Negative: Abdominal Pain, Vomiting Negative: dysuria, hematuria Positive: Myalgia - back pain. Negative: Edema Neurological: Other - dizziness Negative: Headache All Other Systems Reviewed And Are Negative: Yes Physical Exam - Summary Physical Exam Summary: Constitutional: Well-developed, Well-nourished, Alert. (-) Distressed Skin: Warm, Dry, dry mucous membranes HENT: Normocephalic; Atraumatic Eyes: Conjunctiva normal Neck: Musculoskeletal ROM normal neck. (-) JVD, (-) Stridor, (-) Tracheal deviation Cardio: Rhythm regular, rate normal, Heart sounds normal; Intact distal pulses; The pedal pulses are 2+ and symmetric. Radial pulses are 2+ and symmetric. (-) Murmur Pulmonary/Chest wall: Effort normal. (-) Respiratory distress, (-) Wheezes, Mild rhonchi Abd: Soft, (-), epigastric tenderness, (-) Distension, (-) Guarding, (-) Rebound Musculoskeletal: (-) Edema Lymph: (-) Cervical adenopathy Neuro: Alert, Oriented x3 Psych: Mood and affect Normal Triage Information Reviewed: Yes Vital Signs On Initial Exam: Initial Vitals Temp Pulse Resp BP Pulse Ox 97.9 F 63 17 151/107 97 02/16/18 15:50 02/16/18 15:50 02/16/18 15:50 02/16/18 15:50 02/16/18 15:50 Vital Signs Reviewed: Yes Diagnostics - Vital Signs Vital Signs Temp Pulse Resp BP Pulse Ox 02/16/18 16:05 97.9 F 02/16/18 15:50 97.9 F 63 17 151/107 97 - Laboratory Lab Results: Lab Results 02/16/18 02/16/18 02/16/18 Range/Units 16:59 16:59 16:59 WBC 6.2 (3.5-10.8) 10^3/ul RBC 4.27 (4.00-5.40) 10^6/ul Hgb 12.8 L (14.0-18.0) g/dl Hct 38 L (42-52) % MCV 89 (80-94) fL MCH 30 (27-31) pg MCHC 34 (31-36) g/dl RDW 14 (10.5-15) % Plt Count 197 (150-450) 10^3/ul MPV 9.0 (7.4-10.4) um3 Neut % (Auto) 64.3 (38-83) % Lymph % (Auto) 24.3 L (25-47) % Morton % (Auto) 9.5 H (0-7) % Eos % (Auto) 1.7 (0-6) % Baso % (Auto) 0.2 (0-2) % Absolute Neuts (auto) 4.0 (1.5-7.7) 10^3/ul Absolute Lymphs (auto) 1.5 (1.0-4.8) 10^3/ul Absolute Monos (auto) 0.6 (0-0.8) 10^3/ul Absolute Eos (auto) 0.1 (0-0.6) 10^3/ul Absolute Basos (auto) 0 (0-0.2) 10^3/ul Absolute Nucleated RBC 0 10^3/ul Nucleated RBC % 0 Sodium 140 (135-145) mmol/L Potassium 4.0 (3.5-5.0) mmol/L Chloride 111 (101-111) mmol/L Carbon Dioxide 24 (22-32) mmol/L Anion Gap 5 (2-11) mmol/L BUN 18 (6-24) mg/dL Creatinine 1.38 H (0.67-1.17) mg/dL Est GFR ( Amer) 63.4 (>60) Est GFR (Non-Af Amer) 52.4 (>60) BUN/Creatinine Ratio 13.0 (8-20) Glucose 101 H (70-100) mg/dL Lactic Acid 0.5 (0.5-2.0) mmol/L Calcium 9.1 (8.6-10.3) mg/dL Total Bilirubin 0.50 (0.2-1.0) mg/dL AST 11 L (13-39) U/L ALT 8 (7-52) U/L Alkaline Phosphatase 85 (34-104) U/L Troponin I 0.01 (<0.04) ng/mL Total Protein 6.4 (6.4-8.9) g/dL Albumin 3.7 (3.2-5.2) g/dL Globulin 2.7 (2-4) g/dL Albumin/Globulin Ratio 1.4 (1-3) Result Diagrams: 02/16/18 16:59 02/16/18 16:59 Lab Statement: Any lab studies that have been ordered have been reviewed, and results considered in the medical decision making process. - Radiology CXR Radiology Interpretation Completed By: Radiologist - NO EVIDENCE FOR ACUTE DISEASE. ED Physician has reviewed this report. - CT Chest/A/P CT Interpretation Completed By: Radiologist - 1. MILD ATHEROSCLEROTIC CHANGE IN THE AORTA, NO EVIDENCE FOR DISSECTION. 2. LIMITED STUDY, NO EVIDENCE FOR PULMONARY EMBOLISM. 3. CORONARY ARTERY CALCIFICATIONS. 4. CHOLELITHIASIS. 5. 2.5 CM THYROID NODULE RECOMMEND A FOLLOW-UP OUTPATIENT THYROID ULTRASOUND FOR FURTHER EVALUATION. ED Physician has reviewed this report. - EKG 1632 Cardiac Rate: NL - 61 BPM EKG Rhythm: Sinus Rhythm EKG Interpretation: no STEMI Dizzy Course/Dx - Course Course Of Treatment: 62 year old M presenting to [facility] with a chief complaint of sudden dizziness since yesterday while getting out of bed. He describes the dizziness as room spinning. He reports nausea and diaphoresis with onset of symptoms, and current back pain. He states he felt like I was going to at onset of symptoms. Denies CP, SOB, dark bowel movements, and dysuria. CXR and EKG is unremarkable. Chest/A/P CT reveals: 1. MILD ATHEROSCLEROTIC CHANGE IN THE AORTA, NO EVIDENCE FOR DISSECTION. 2. LIMITED STUDY, NO EVIDENCE FOR PULMONARY EMBOLISM. 3. CORONARY ARTERY CALCIFICATIONS. 4. CHOLELITHIASIS. 5. 2.5 CM THYROID NODULE RECOMMEND A FOLLOW-UP OUTPATIENT THYROID ULTRASOUND FOR FURTHER EVALUATION. Lab work is unremarkable. First troponin is 0.0 and second is 0.02. Dr. Craig agrees to admit patient. - Diagnoses Provider Diagnoses: Dizziness - Provider Notifications Discussed Care Of Patient With: Kailash Monge - hospitalist Time Discussed With Above Provider: 19:40 Instructed by Provider To: Admit As Inpatient Discharge - Sign-Out/Discharge Documenting (check all that apply): Patient Departure - Discharge Plan Condition: Stable Disposition: ADMITTED TO [facility] Referrals: Luigi Pillai MD [Primary Care Provider] -
[2018-02-16] MEDS ORDERED: Iodixanol* (CONTRAST) 320 MG/ML 100 ML SDV IV ONE (18:37)
--- NOTE | 2018-02-16 19:12 | RAD ---
INDICATION: Back pain, hypertension, feeling of impending doom. COMPARISON: Comparison is made with a prior CT angiogram of the chest from February 15, [address] urogram from March 03, 2017. TECHNIQUE: A CT angiogram of the chest, abdomen and pelvis was performed with intravenous contrast following intravenous injection of 100 ml of Visipaque 320 nonionic contrast. Contiguous axial sections were obtained from the lung apices through the symphysis pubis. Images were reconstructed in the coronal and sagittal planes and in a 3-D volume rendered reformatted. FINDINGS: CT ANGIOGRAM OF THE CHEST: There is suboptimal opacification of the pulmonary arteries slightly limiting the exam. No intraluminal filling defect or pulmonary embolism is seen. The heart is within normal limits in size. There are coronary artery calcifications present. No pericardial effusion is present. The thoracic aorta is normal in caliber and demonstrates homogeneous contrast opacification without evidence for dissection. No significant enlarged mediastinal or hilar lymph nodes are seen. There is a 2.5 cm nodule in the right thyroid lobe which appears present on the prior study. Recommend an outpatient thyroid ultrasound for further evaluation. The lungs are clear. No pleural effusion is seen. CT ANGIOGRAM OF THE ABDOMEN AND PELVIS: The abdominal aorta is normal in caliber and demonstrates homogeneous contrast opacification. There is no evidence for dissection. There is mild atherosclerotic change without evidence for significant stenosis. The celiac axis, superior and inferior mesenteric arteries appear patent without evidence for hemodynamically significant stenosis. There are single bilateral renal arteries without hemodynamically significant stenosis. The liver and spleen are normal in size without significant focal abnormality. There are small calcified gallstones present. The gallbladder is nondistended. No gallbladder wall thickening is seen. The pancreas appears to be within normal limits. The adrenal glands appear within normal limits. The kidneys are slightly small in size with bilateral cortical thinning. No hydronephrosis is present. No significant enlarged retroperitoneal lymph nodes are seen. There appears to be a small hiatal hernia. The stomach, small and large bowel appear nondistended. There are scattered diverticuli within the colon. There is no evidence for diverticulitis or colitis. There is a small periumbilical hernia containing fat. No free intraperitoneal air or fluid is seen. No significant focal osseous abnormality is seen. IMPRESSION: 1. MILD ATHEROSCLEROTIC CHANGE IN THE AORTA, NO EVIDENCE FOR DISSECTION. 2. LIMITED STUDY, NO EVIDENCE FOR PULMONARY EMBOLISM. 3. CORONARY ARTERY CALCIFICATIONS. 4. CHOLELITHIASIS. 5. 2.5 CM THYROID NODULE RECOMMEND A FOLLOW-UP OUTPATIENT THYROID ULTRASOUND FOR FURTHER EVALUATION.
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
[2018-02-16] MEDS ORDERED: Acetaminophen TAB* 325 MG PO PRN (21:43)
[2018-02-16] MEDS ORDERED: Ondansetron ODT TAB* 4 MG PO PRN (21:43)
[2018-02-16] MEDS ORDERED: hydrALAZINE IV* 20 MG/ML VIAL IV PRN (21:43)
[2018-02-16] MEDS ORDERED: Melatonin 3 MG TAB PO PRN (21:43)
[2018-02-16] MEDS ORDERED: Aspirin TAB* 325 MG PO ONE (21:45)
[2018-02-16] MEDS: Meclizine TAB* 12.5 MG PO SCH (23:42)
[2018-02-16] MEDS: Gabapentin CAP(*) 100 MG PO SCH (23:42)
[2018-02-16] MEDS: Topiramate TAB(*) 100 MG PO SCH (23:43)
[2018-02-16] MEDS: Metoprolol Tartrate TAB* 25 MG PO SCH (23:43)
[2018-02-16] MEDS: Famotidine TAB* 20 MG PO SCH (23:43)
[2018-02-17] MEDS: NS 0.9% 1000 ML* 1,000 ML IV SCH
[2018-02-17] MEDS: Meclizine TAB* 12.5 MG PO SCH ×3 (06:43→20:27)
--- NOTE | 2018-02-17 07:26 | RAD ---
INDICATION: Dizziness COMPARISON: CT brain January 01, 2018 TECHNIQUE: Noncontrast axial source images were acquired from the skull base to the vertex. FINDINGS: Ventricles/sulci: The ventricles and cisterns are normal in size and configuration for age. Brain parenchyma: There is no acute focal parenchymal finding, evidence of intracranial mass, or intracranial mass effect. There are chronic microvascular ischemic changes. There is a chronic right basal ganglia infarct and there is an old left thalamic infarct. There is an old MCA distribution infarct with encephalomalacia. There is a Dandy-Walker Intracranial hemorrhage:None. Extra-axial spaces: There are no abnormal extra axial fluid collections or evidence of extra-axial mass. Calvarium: There is no calvarial fracture or other calvarial abnormality. Scalp: There is no evidence of scalp or extracalvarial soft tissue abnormality. Paranasal sinuses/mastoid: The paranasal sinuses and mastoid air cells are clear. Other: None. IMPRESSION: SEQUELA OF CHRONIC MICROVASCULAR INSULT AND OLD LEFT MCA DISTRIBUTION INFARCT. NO ACUTE FINDINGS
--- NOTE | 2018-02-17 08:00 | RAD ---
HISTORY: HX recurrent CVA presents w/ dizziness COMPARISONS: MRI of the brain dated February 16, 2018, CTA dated November 18, 2010 TECHNIQUE: 3-D axial [id number] MR angiography was performed of the head to include the naknek of Sylvester. Multiple 3-D maximum intensity projection reconstructions are also submitted for review. FINDINGS: RIGHT VERTEBRAL ARTERY: The distal right vertebral artery is unremarkable, without stenosis. LEFT VERTEBRAL ARTERY: The distal left vertebral artery is unremarkable, without stenosis. DOMINANCE: The left vertebral artery is dominant. DISTAL RIGHT CERVICAL INTERNAL CAROTID ARTERY: The distal right cervical internal carotid artery is unremarkable. DISTAL LEFT CERVICAL INTERNAL CAROTID ARTERY: The distal left cervical internal carotid artery is unremarkable. INTRACRANIAL CIRCULATION: There is no aneurysm, vascular malformation, occlusion, or stenosis of the visualized intracranial circulation. The anterior communicating artery complex is clear. The posterior communicating arteries are diminutive if present. OTHER FINDINGS: None IMPRESSION: NO ANEURYSM, VASCULAR MALFORMATION, OCCLUSION, OR STENOSIS OF THE VISUALIZED INTRACRANIAL CIRCULATION. R0
--- NOTE | 2018-02-17 08:02 | RAD ---
HISTORY: HX recurrent CVA presents w/ dizziness COMPARISONS: CTA dated September 20, 2010 TECHNIQUE: The following sequences were obtained of the neck after localizing images: Stacked axial 2-D [id number] MR angiography of the neck; 3-D axial [id number] MR angiography of the carotid bifurcations. Multiple 3-D maximum intensity projection reconstructions are submitted for review. FINDINGS: AORTA: The aortic arch is not well visualized secondary to technique and motion artifact. There is no obvious ostial or proximal stenosis of the cephalic great vessels. RIGHT VERTEBRAL ARTERY: The right vertebral artery is patent and without stenosis. There is in plane flow saturation artifact of the horizontal portion of the right vertebral artery. LEFT VERTEBRAL ARTERY: The left vertebral artery is patent, without stenosis. There is in plane flow saturation artifact of the horizontal portion of the left vertebral artery. DOMINANCE: The left vertebral artery is dominant. RIGHT COMMON CAROTID ARTERY: The right common carotid artery is patent. RIGHT INTERNAL CAROTID ARTERY: There is no right internal carotid artery stenosis by NASCET criteria. LEFT COMMON CAROTID ARTERY: The left common carotid artery is patent. LEFT INTERNAL CAROTID ARTERY: There is no left internal carotid artery stenosis by NASCET criteria. The left internal carotid artery is tortuous. ADDITIONAL FINDINGS: The visualized intracranial circulation is unremarkable. IMPRESSION: NO INTERNAL CAROTID ARTERY STENOSIS BY NASCET CRITERIA.. R0 CPT II Codes: 3100F
--- NOTE | 2018-02-17 08:06 | RAD ---
HISTORY: HX recurrent CVA presents w/ dizziness COMPARISONS: September 02, 2016 TECHNIQUE: The following sequences were obtained of the head: Sagittal T1-weighted images, axial T2-weighted images, axial FLAIR images, axial susceptibility weighted images, axial T1-weighted images. Additionally, axial diffusion-weighted images were obtained with calculated apparent diffusion coefficients. FINDINGS: HEMORRHAGE/INFARCT: There is no hemorrhage or acute infarct. MASSES/SHIFT: There is no mass or shift. 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 SULCI AND VENTRICLES: The sulci and ventricles are normal in size and position for the patient's stated age. The Dandy-Walker variant noted on the pulmonary report is not appreciated on the current examination. CEREBRUM: There is multifocal and confluent elevated T2/FLAIR signal within the periventricular and subcortical white matter bilaterally. There are chronic lacunar infarcts of the coronal radiata bilaterally. There is an area of encephalomalacia involving the left parietal and posterior temporal lobes consistent with remote infarct, corresponding to the area of restricted diffusion noted on the previous examination. BRAINSTEM: There is elevated T2/FLAIR signal within the pontine white matter. There is volume loss and elevated signal within the left cerebral peduncle consistent with Wallerian degeneration. CEREBELLUM: There are no focal parenchymal abnormalities. The cerebellar tonsils are normal in size and position. SELLA: The sella is normal. PINEAL: The pineal region is clear. CP ANGLE/TEMPORAL BONES: The labyrinthine structures are grossly normal. VESSELS: Normal flow-voids are noted within the visualized vertebral vasculature. DIFFUSION ABNORMALITIES: There are no diffusion abnormalities. PARANASAL SINUSES/MASTOIDS: The paranasal sinuses are clear. ORBITS: The orbits are unremarkable. BONES AND SOFT TISSUE: No bone or soft tissue abnormalities are noted. OTHER: None IMPRESSION: 1. EXTENSIVE WHITE MATTER DISEASE CONSISTENT WITH CHRONIC SMALL VESSEL ISCHEMIA, LEFT TEMPORAL-PARIETAL ENCEPHALOMALACIA CONSISTENT WITH REMOTE STROKE, AND MULTIPLE CHRONIC LACUNAR INFARCTS OF THE CEREBRAL HEMISPHERES BILATERALLY. 2. NO RESTRICTED DIFFUSION TO SUGGEST ACUTE INFARCT. R2
[2018-02-17] MEDS: Rivaroxaban TAB(*) 20 MG TAB PO SCH (08:40)
[2018-02-17] MEDS: Docusate CAP* 100 MG PO SCH ×2 (08:40→20:25)
[2018-02-17] MEDS: Metoprolol Tartrate TAB* 25 MG PO SCH ×2 (08:41→20:25)
[2018-02-17] MEDS: Gabapentin CAP(*) 100 MG PO SCH ×3 (08:41→20:26)
[2018-02-17] MEDS: Clopidogrel TAB* 75 MG PO SCH (08:42)
[2018-02-17] MEDS: Topiramate TAB(*) 100 MG PO SCH ×2 (08:42→20:27)
[2018-02-17] MEDS: Famotidine TAB* 20 MG PO SCH ×2 (08:43→20:27)
[2018-02-17] MEDS ORDERED: ETHOSUXIMIDE 250 MG PO SCH (09:00)
[2018-02-17] MEDS ORDERED: LORazepam INJ* 2 MG/ML 1 ML VIAL IV PUSH PRN (10:07)
[2018-02-17 10:20] LABS: ABS Basophils 0.1 10^3/ul (0-0.2); ABS Eosinophils 0.1 10^3/ul (0-0.6); ABS Lymphocytes 1.3 10^3/ul (1.0-4.8); ABS Monocytes 0.5 10^3/ul (0-0.8); ABS Neutrophils 2.7 10^3/ul (1.5-7.7); ABS Nucleated RBC 0 10^3/ul; Eosinophil % 2.2 % (0-6); Hematocrit 39 % (42-52); Hemoglobin 12.9 g/dl (14.0-18.0); Mean Corpuscular HGB Conc 33 g/dl (31-36); Mean Corpuscular Hemoglobin 30 pg (27-31); Mean Corpuscular Volume 90 fL (80-94); Mean Platelet Volume 9.1 um3 (7.4-10.4); Nucleated Red Blood Cells % 0.1; Platelet Count 186 10^3/ul (150-450); Red Blood Count 4.36 10^6/ul (4.00-5.40); Red Cell Distribution Width 14 % (10.5-15); White Blood Count 4.6 10^3/ul (3.5-10.8)
--- NOTE | 2018-02-17 10:24 | PN ---
Subjective Date of Service: 02/17/18 Interval History: CAT call for seizure like activity this morning. Upon arrival, RUTHY Yun at bedside. Evaluation by Dr. Palomares and myself. Patient appears to have twitching, unable to obtain ROS. Objective Active Medications: Acetaminophen (Tylenol Tab*) 650 mg PO Q6H PRN PRN Reason: FEVER/PAIN Atorvastatin Calcium (Lipitor*) 20 mg PO BEDTIME [facility] Clopidogrel Bisulfate (Plavix Tab*) 75 mg PO DAILY [facility] Last Admin: 02/17/18 08:42 Dose: 75 mg Docusate Sodium (Colace Cap*) 200 mg PO BID [facility] Last Admin: 02/17/18 08:40 Dose: 200 mg Ethosuximide (Zarontin Cap*) 250 mg PO BID [facility] Famotidine (Pepcid Tab*) 20 mg PO BID [facility] Last Admin: 02/17/18 08:43 Dose: 20 mg Gabapentin (Neurontin Cap(*)) 100 mg PO TID [facility] Last Admin: 02/17/18 08:41 Dose: 100 mg Hydralazine HCl (Apresoline Iv*) 10 mg IV Q4H PRN PRN Reason: Systolic >170 Sodium Chloride (Ns 0.9% 1000 Ml*) 1,000 mls @ 50 mls/hr IV PER RATE [facility] Last Admin: 02/17/18 00:00 Dose: 50 mls/hr Lorazepam (Ativan Inj*) 1 mg IV PUSH Q4H PRN PRN Reason: seizure activity Meclizine HCl (Antivert Tab*) 25 mg PO Q8HR [facility] Last Admin: 02/17/18 06:43 Dose: 25 mg Melatonin (Melatonin) 3 mg PO BEDTIME PRN; Protocol PRN Reason: Sleep Last Admin: 02/16/18 23:43 Dose: 3 mg Metoprolol Tartrate (Lopressor Tab*) 25 mg PO BID [facility] Last Admin: 02/17/18 08:41 Dose: 25 mg Ondansetron HCl (Zofran Odt Tab*) 4 mg PO Q6H PRN PRN Reason: n/v Rivaroxaban (Xarelto(*)) 20 mg PO DAILY [facility] Last Admin: 02/17/18 08:40 Dose: 20 mg Topiramate (Topamax(*)) 100 mg PO BID [facility] Last Admin: 02/17/18 08:42 Dose: 100 mg Vital Signs - 8 hr 02/17/18 02/17/18 02/17/18 03:36 07:53 08:41 Temperature 98.0 F 97.9 F Pulse Rate 51 69 Respiratory 16 12 16 Rate Blood Pressure 153/77 141/87 (mmHg) O2 Sat by Pulse 98 99 Oximetry Oxygen Devices in Use Now: None, Nasal Cannula Appearance: responsive to sternal rub Eyes: No Scleral Icterus, PERRLA Ears/Nose/Mouth/Throat: Mucous Membranes Moist Neck: NL Appearance and Movements; NL JVP, Trachea Midline Respiratory: Symmetrical Chest Expansion and Respiratory Effort, Clear to Auscultation Cardiovascular: NL Sounds; No Murmurs; No JVD, RRR Extremities: No Edema, No Clubbing, Cyanosis Neurological: - - lethargic, poor speech pattern, one word answers Nutrition: - - NPO Result Diagrams: 02/17/18 09:59 02/17/18 09:59 Additional Lab and Data: Lab Results 02/16/18 02/16/18 02/16/18 Range/Units 16:59 16:59 16:59 WBC 6.2 (3.5-10.8) 10^3/ul RBC 4.27 (4.00-5.40) 10^6/ul Hgb 12.8 L (14.0-18.0) g/dl Hct 38 L (42-52) % MCV 89 (80-94) fL MCH 30 (27-31) pg MCHC 34 (31-36) g/dl RDW 14 (10.5-15) % Plt Count 197 (150-450) 10^3/ul MPV 9.0 (7.4-10.4) um3 Neut % (Auto) 64.3 (38-83) % Lymph % (Auto) 24.3 L (25-47) % Major % (Auto) 9.5 H (0-7) % Eos % (Auto) 1.7 (0-6) % Baso % (Auto) 0.2 (0-2) % Absolute Neuts (auto) 4.0 (1.5-7.7) 10^3/ul Absolute Lymphs (auto) 1.5 (1.0-4.8) 10^3/ul Absolute Monos (auto) 0.6 (0-0.8) 10^3/ul Absolute Eos (auto) 0.1 (0-0.6) 10^3/ul Absolute Basos (auto) 0 (0-0.2) 10^3/ul Absolute Nucleated RBC 0 10^3/ul Nucleated RBC % 0 Sodium 140 (135-145) mmol/L Potassium 4.0 (3.5-5.0) mmol/L Chloride 111 (101-111) mmol/L Carbon Dioxide 24 (22-32) mmol/L Anion Gap 5 (2-11) mmol/L BUN 18 (6-24) mg/dL Creatinine 1.38 H (0.67-1.17) mg/dL Est GFR ( Amer) 63.4 (>60) Est GFR (Non-Af Amer) 52.4 (>60) BUN/Creatinine Ratio 13.0 (8-20) Glucose 101 H (70-100) mg/dL Lactic Acid 0.5 (0.5-2.0) mmol/L Calcium 9.1 (8.6-10.3) mg/dL Total Bilirubin 0.50 (0.2-1.0) mg/dL AST 11 L (13-39) U/L ALT 8 (7-52) U/L Alkaline Phosphatase 85 (34-104) U/L Troponin I 0.01 (<0.04) ng/mL Total Protein 6.4 (6.4-8.9) g/dL Albumin 3.7 (3.2-5.2) g/dL Globulin 2.7 (2-4) g/dL Albumin/Globulin Ratio 1.4 (1-3) Diagnostic Imaging: Patient Name: BRENDAN WEEMS Medical Record#: [id number] Ordering Physician: Kailash Monge MD Acct.#: [id number] : 1955 Age: 62 Sex: M Location: [address] [place] [address]/[employer] Exam Date: 02/16/182034 ADM Status: ADM Napoleon Order Information: MRI BRAIN W/O Accession Number: [id number] CPT: 14196 HISTORY: HX recurrent CVA presents w/ dizziness COMPARISONS: September 02, 2016 TECHNIQUE: The following sequences were obtained of the head: Sagittal T1- weighted images, axial T2-weighted images, axial FLAIR images, axial susceptibility weighted images, axial T1-weighted images. Additionally, axial diffusion-weighted images were obtained with calculated apparent diffusion coefficients. FINDINGS: HEMORRHAGE/INFARCT: There is no hemorrhage or acute infarct. MASSES/SHIFT: There is no mass or shift. 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 SULCI AND VENTRICLES: The sulci and ventricles are normal in size and position for the patient's stated age. The Dandy-Walker variant noted on the pulmonary report is not appreciated on the current examination. CEREBRUM: There is multifocal and confluent elevated T2/FLAIR signal within the periventricular and subcortical white matter bilaterally. There are chronic lacunar infarcts of the coronal radiata bilaterally. There is an area of encephalomalacia involving the left parietal and posterior temporal lobes consistent with remote infarct, corresponding to the area of restricted diffusion noted on the previous examination. BRAINSTEM: There is elevated T2/FLAIR signal within the pontine white matter. There is volume loss and elevated signal within the left cerebral peduncle consistent with Wallerian degeneration. CEREBELLUM: There are no focal parenchymal abnormalities. The cerebellar tonsils are normal in size and position. SELLA: The sella is normal. PINEAL: The pineal region is clear. CP ANGLE/TEMPORAL BONES: The labyrinthine structures are grossly normal. VESSELS: Normal flow-voids are noted within the visualized vertebral vasculature. DIFFUSION ABNORMALITIES: There are no diffusion abnormalities. PARANASAL SINUSES/MASTOIDS: The paranasal sinuses are clear. ORBITS: The orbits are unremarkable. BONES AND SOFT TISSUE: No bone or soft tissue abnormalities are noted. OTHER: None IMPRESSION: 1. EXTENSIVE WHITE MATTER DISEASE CONSISTENT WITH CHRONIC SMALL VESSEL ISCHEMIA , LEFT TEMPORAL-PARIETAL ENCEPHALOMALACIA CONSISTENT WITH REMOTE STROKE, AND MULTIPLE CHRONIC LACUNAR INFARCTS OF THE CEREBRAL HEMISPHERES BILATERALLY. 2. NO RESTRICTED DIFFUSION TO SUGGEST ACUTE INFARCT. R2 This report is only to be considered final once signed by the Provider(s) as displayed in the "<Electronically Signed by >" field (s). Absence of a signature indicates the report is in a draft status and still needs to be finalized. In the event this document was created by someone other than the signing Provider, the individual initiating the document will be listed in the "Entered by:" or "Dictated by:" babb. 1 of 2 Assess/Plan/Problems-Billing Assessment: This is a 62 year old male with history of multiple CVAs in the past, that presented with vertigo and chest pain last evening, and appears to be having seizure like activity this morning. 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 - CONVERSION DISORDER WITH SEIZURES OR CONVULSIONS SNOMED Code( s): 840749564 Comment: - History of seizure like activity and trial of anti-convulsants with no documented epileptiform activity on EEG today or in the past - Patient already on close to max dose of topamax - Todays' issues seem to be more related to PTSD, stress over divorce and chronic illness - If continues, may consider psychiatric evaluation - Dizzy today but no orthostasis documented, trial TEDs befor position changes - Continue supportive care and current medications (2) Encephalomalacia Code(s): G93.89 - OTHER SPECIFIED DISORDERS OF BRAIN SNOMED Code(s): 74399226 Comment: - No new CVA on today's imaging - EEG negative for seizure DO - Periods of confusion more likely r/t hx of PTSD exacerbating old damage (3) History of CVA (cerebrovascular accident) Code(s): Z86.73 - PRSNL HX OF TIA (TIA), AND CEREB INFRC W/O RESID DEFICITS SNOMED Code(s): 138466457 Comment: - No new pathology as per neuro - residual aphasia noted - continue plavix, statin (4) History of DVT (deep vein thrombosis) Code(s): Z86.718 - PERSONAL HISTORY OF OTHER VENOUS THROMBOSIS AND EMBOLISM SNOMED Code(s): 726845609 Comment: - continue xarelto (5) CKD (chronic kidney disease), stage III Code(s): N18.3 - CHRONIC KIDNEY DISEASE, STAGE 3 (MODERATE) SNOMED Code(s): 345837172 Comment: - At baseline this admission (6) HLD (hyperlipidemia) Code(s): E78.5 - HYPERLIPIDEMIA, UNSPECIFIED SNOMED Code(s): 53908898 Comment: - Continue atorvastatin 20mg QHS (7) Hypertension Code(s): I10 - ESSENTIAL (PRIMARY) HYPERTENSION SNOMED Code(s): 10768832 Comment: - Continue home BP meds Status and Disposition: monitor overnight, PT eval
[2018-02-17 10:39] LABS: EGFR Non-African American 57.7 (>60)
--- NOTE | 2018-02-17 14:48 | CONS ---
NEUROLOGY CONSULTATION NOTE: DATE OF CONSULT: 02/17/18 REASON FOR NEUROLOGICAL CONSULTATION: Neurology was consulted for evaluation of possible seizure. CHIEF COMPLAINT: "I feel dizzy." HISTORY OF PRESENT ILLNESS: Mr. Dandy Fay is a 62-year-old right-handed man with history of posttraumatic stress disorder; depression; multifocal infarction , on anticoagulation therapy due to atrial fibrillation; documented psychogenic nonepileptic activity in 2009 to 2010 in [facility] in [place], [place] , who has had multiple admissions over the last 2 years for similar presentation with unremarkable workup, who had an episode today where he stood up and felt lightheaded and had near syncope. The patient has gone through many stressors as he is going through a divorce with his spouse. He feels extremely down and depressed, but denied any suicide or homicide ideation. Apparently yesterday, the patient had a sudden onset spinning dizziness when getting out of bed. Lying flat made the dizziness much better. He told to admitting hospitalist that he had a fear of dying and hence, he called for a help and for further evaluation. In regards to the patient's seizure-like activity, it is unclear if the patient has history of absence seizures versus nonepileptic seizures. He had multiple EEGs one on 06/03/11 as well as 06/13/11 that showed normal awake and sleep studies. He had long-term video EEG monitoring in [place] that captured nonepileptic events. He also was evaluated numerous times by Dr. Hunter and Leigh over the last several years. Dr. Abraham saw the patient on 02/16/17 and he recommended to discontinue the Keppra/levetiracetam since the patient has history of depression and posttraumatic stress disorder, Keppra can be worsening his mood. There is documentation that the patient is also on ethosuximide 250 mg by mouth twice daily that was started on 02/02/18. The patient is taking Topamax 100 mg twice daily for the history of migraine headaches as well as gabapentin 100 mg 3 times daily for history of neuropathic pain. During Dr. Abraham's evaluation, he felt that the patient has remote left middle cerebral artery stroke and remote brain stem stroke. The patient had a pulmonary embolism at that time and the risk of not anticoagulating outweighs the risk of anticoagulation, he was started on anticoagulation at that time. Again, this is when the patient was taken off levetiracetam in 2017. In regards to his stroke, the patient had a questionable hemorrhagic stroke in the past. This is not quite clear. He does have a left middle cerebral artery infarction and a pontine infarction. He was on aspirin, Plavix in the past, but since starting anticoagulation therapy, the patient has been on Plavix and Xarelto now. Today, the patient had an episode around 10:30 a.m. where he stood from the bed to be evaluated by PT and then he suddenly developed diaphoresis, lightheadedness, and nearly passed out. Then, the patient had some shaking- like episode, described by the nurses as if he was having convulsive seizures. This lasted in 1 minute. The patient was then confused for about 10 to 15 minutes, but was able to follow command, but slowly. The patient was started on IV fluid. When I assessed him at around 11:00 this morning, the patient was responsive and cooperative. He was able to stand up for me, but as soon as he stood up, he again had this lightheadedness and diaphoresis. This was constant and went away as soon as he laid flat. The patient denied any new weakness, paresthesias, headaches, visual disturbance, or swallowing difficulty. Again, he was mostly emotional regarding his divorce process and informed me that his disability has caused significant distress in his life. PAST MEDICAL HISTORY: As mentioned in the HPI, but also hyperlipidemia, hypertension, gastroesophageal reflux, chronic renal insufficiency. MEDICATIONS ON ADMISSION: 1. Metoprolol 25 mg by mouth twice daily. 2. Ethosuximide 250 mg by mouth twice daily. 3. Rivaroxaban 20 mg by mouth daily. 4. Calcium carbonate 1000 mg by mouth every 6 hours as needed. 5. Trazodone 50 mg by mouth at bedtime. 6. Topamax 100 mg by mouth twice daily. 7. Simvastatin 40 mg by mouth at bedtime. 8. Potassium chloride tablet 20 mEq by mouth daily. 9. Famotidine 20 mg by mouth twice daily. 10. Clopidogrel 75 mg by mouth daily. 11. Nitroglycerin 0.4 mg every 5 minutes p.r.n. for chest pain. 12. Multivitamins. 13. Meclizine 12.5 mg by mouth twice daily. 14. Gabapentin 100 mg p.o. 3 times daily. 15. Cyanocobalamin 500 mcg p.o. daily. 16. Capsaicin cream 0.1% topical 3 times daily as needed. 17. Acetaminophen 650 mg by mouth every 4 hours as needed. ALLERGIES: OXYCODONE. FAMILY HISTORY: He denied any family history of stroke or seizures. SOCIAL HISTORY: The patient denied any tobacco or alcohol use. REVIEW OF SYSTEMS: A 14-point review of systems was obtained and otherwise negative except for what was mentioned in the HPI. PHYSICAL EXAMINATION: Vitals: Temperature of 97.9, pulse of 69, respiratory rate of 16, oxygen saturation 99% on room air, blood pressure of 141/87. General: Chronically Ill-appearing, obese man, in no acute distress. He appears depressed and down, but denied any suicide or homicide ideation. Head is normocephalic, atraumatic without any obvious abnormalities. Eyes: Conjunctivae/corneas are clear with no scleral icterus. Neck is supple and symmetrical with no carotid bruits. Lungs are clear to auscultation bilaterally with nonlabored breathing. Cardiovascular: Regular rate and rhythm with normal S1, S2. Skin: No skin lesions or lacerations. Psych: Affect is broad and normal mood. Easy to establish rapport. Neurological Examination: Mental Status: The patient is drowsy, but awake, and alert and oriented to person, place, time, and general circumstances. He has psychomotor slowing, but speech and language are fluent and he is able to comprehend complex commands. Cranial Nerves: Normal confrontation bilaterally. Pupils are mid range and reactive to light. Normal consensual response. Extraocular muscles are intact with no ptosis, no conjugate, or asymmetrical nystagmus. Sensation is intact in the forehead, cheeks, and jaw region. No facial droop was noticed. Facial asymmetry with smiling and wrinkling at the forehead. Able to hear throughout the history process. Normal strength against resistance to shoulder shrug. Tongue is symmetrical and midline with no atrophy. Motor Examination: No abnormal movements or pronator drift. The patient does have long tract pyramidal signs on the right upper and lower extremities. This is not new. Reflexes Right/Left: Trace throughout the brachioradialis, biceps, triceps, patella, and absent at the ankles bilaterally. Plantar responses mute on the right and flexor on the left. Sensation is intact to light touch throughout. Coordination: Normal [id number] and rapid alternating movement. Gait is wide based, required 1 person assist. LABORATORY/IMAGING AND OTHER DIAGNOSTIC TESTING: Laboratory findings: WBC 4.6 , hemoglobin of 12.9, hematocrit of 39, platelet function of 186. Sodium of 141 , potassium 3.8, chloride of 113, creatinine 1.27, lactic acid of 0.5, ammonia level 56. The patient had an electrocardiogram, which showed sinus bradycardia. He had an MRI done of the brain completed on 02/16/18 that was personally reviewed. There was no evidence of an acute intracranial abnormality. The patient had an extensive white matter disease consistent with chronic small vessel ischemia, left temporoparietal encephalomalacia consistent with remote stroke and multiple chronic lacunar infarcts in the cerebral hemisphere bilaterally. There are no areas of restricted diffusion to suggest an acute infraction. He had an MRA of the head and neck completed on 02/16/18 that showed no aneurysm, vascular malformation, occlusion, or stenosis of the visualized internal circulation. He had a neck MRA completed on 02/16/18 that was personally reviewed and there is no internal carotid artery stenosis. ASSESSMENT: Mr. Dandy Fay is a 62-year-old man with a complicated history mostly consistent of documented atrial fibrillation, on Xarelto; history of pulmonary embolism; most prominent is multifocal infarction involving the left cerebral hemisphere with residual mild right hemiparesis as well as small remote pontine infarction and the patient also has a reported history of psychogenic nonepileptic activity. The patient had an episode of convulsive syncope today as well as presented yesterday to [facility] with intermittent lightheadedness and dizziness upon standing. I suspect the episode that he had today is mostly convulsive syncope given that the patient was completely normal when laying flat and was symptomatic when he sat up with physical therapy- he had symptoms of lightheadedness preceding the near syncopic event. Following the loss of awareness, the patient was slightly confused for about 10 to 15 minutes, but he was able to follow commands immediately. After 15 minutes, the patient appeared back to his baseline and was able to stand and ambulate, but still complaining of positional lightheadedness. I have chosen not to proceed with treating him with antiseizure medication since this episode is likely provoked due to orthostasis plus placing him back on Keppra would not be ideal given his mood disorder, which can exacerbate his mood disorder. I am not quite sure why the patient is on ethosuximide, but I do not suspect the patient to have absence seizure and if he would have staring spells, it probably would be more of complex partial seizures with or without secondary generalization and ethosuximide would not be the treatment choice. Therefore, I have discontinued ethosuximide. Continue both gabapentin and Topamax, Topamax for the treatment for his migraine headaches. We are pending a final EEG report, which a preliminary report showed no epileptiform abnormalities or electrographic seizures when I reviewed it at bedside. No further intracranial imaging is recommended at this point. Continue physical therapy. I provided the option to consult Psychiatry to further discuss his PTSD as well as the depression, but the patient declined and does not want a Psychiatric evaluation. I discussed above recommendations with the primary team as well as the bedside nurse. Continue IV fluid. Obtain orthostatic vitals. I will continue to follow. TIME SPENT: I spent a total of 75 minutes and greater than 50% that was spent directly reviewing the medical chart, obtaining history, examining the patient, education and counseling, and discussing the treatment plan with the patient. Hopefully, he can be discharged by tomorrow if his dizziness resolved. [id number]/[facility] #: [id number] DANA
[2018-02-17] MEDS ORDERED: Atorvastatin* 20 MG TAB PO SCH (21:00)
[2018-02-18] MEDS: NS 0.9% 1000 ML* 1,000 ML IV SCH (00:35)
--- NOTE | 2018-02-18 02:44 | EEG ---
ELECTROENCEPHALOGRAPHY: DATE OF SERVICE: 02/17/18. TIME OF TRACIN:02 a.m.-10.28 a.m. ATTENDING PROVIDER: Sherron Love MD MEDICATIONS: 1. Atorvastatin. 2. Clopidogrel. 3. Ethosuximide. 4. Gabapentin. 5. Hydralazine. 6. Lorazepam. 7. Metoprolol. 8. Rivaroxaban. 9. Topamax. CLINICAL STATE: Awake and sleep. CLINICAL PROBLEM: Dandy Fay is a 62-year-old man with history of psychogenic nonepileptic seizures and multifocal infarcts involving the left MCA vascular distribution as well as the pontine area, who had 1 episode of near syncope. This EEG was obtained to evaluate for epileptiform abnormalities. REPORT: The waking background showed appropriate organization with clearly defined anterior-posterior voltage and frequency gradients. There was a well- defined posterior dominant rhythm of 9 Hz, which was symmetrical and showed normal reactivity. Anteriorly, there was expected pattern of lower voltage and more irregular theta and beta frequencies. The sleep background was appropriately organized with well-developed spindles and vertex waves indicating stage 2 sleep. Positive occipital sharp transients of sleep were also seen and predominantly seen in the right occipital region. No epileptiform abnormalities were recorded. Photic stimulation and hyperventilation were not performed. CLINICAL IMPRESSION: This is a normal awake and sleep EEG with no evidence of epileptiform abnormalities. A normal interictal EEG does not exclude or support the diagnosis of epilepsy. Clinical correlation is recommended. [id number] #: [id number] MTDD
[2018-02-18] MEDS: Meclizine TAB* 12.5 MG PO SCH ×2 (06:17→14:19)
[2018-02-18] MEDS: Topiramate TAB(*) 100 MG PO SCH (08:46)
[2018-02-18] MEDS: Docusate CAP* 100 MG PO SCH (08:46)
[2018-02-18] MEDS: Famotidine TAB* 20 MG PO SCH (08:46)
[2018-02-18] MEDS: Metoprolol Tartrate TAB* 25 MG PO SCH (08:46)
[2018-02-18] MEDS: Clopidogrel TAB* 75 MG PO SCH (08:46)
[2018-02-18] MEDS: Gabapentin CAP(*) 100 MG PO SCH ×2 (08:46→14:19)
[2018-02-18] MEDS: Rivaroxaban TAB(*) 20 MG TAB PO SCH (08:46)
[2018-02-18 13:01] VITALS: BP 155/88
--- NOTE | 2018-02-19 01:35 | PN ---
NEUROLOGY PROGRESS REPORT: DATE OF SERVICE: 02/18/18 REASON FOR FOLLOWUP: Dizziness. CHIEF COMPLAINT: "I feel well today." CONSULTING PROVIDER: 1. Dr. Kailash Monge. 2. Irena Thurman NP SUBJECTIVE: The patient feels well today. Apparently, he had an episode last night where he had slight anxiety and lightheadedness upon standing with the bedside nurse. He did not completely pass out. He denied any new focal weakness or paresthesias. He denied any chest pain, shortness of breath, or palpitations. The patient was able to walk with me today to sit near side of window outside his room. He did not require any assistance other than the walker. I have reviewed the patient's medication list. The patient is on Plavix. He has also been on Xarelto. The combination will definitely increase his risk of bleeding, especially that he has history of hematuria in the past. I switched him from Plavix to aspirin 81 mg daily. REVIEW OF SYSTEMS: As per HPI. MEDICATIONS: 1. Acetaminophen 650 mg by mouth every 6 hours as needed. 2. Atorvastatin 20 mg by mouth at bedtime. 3. Clopidogrel 75 mg by mouth daily. 4. Docusate 200 mg by mouth twice daily. 5. Famotidine 20 mg by mouth twice daily. 6. Gabapentin 100 mg by mouth 3 times daily. 7. Hydralazine 10 mg IV every 4 hours as needed for elevated blood pressure. 8. Lorazepam 1 mg IV push. 9. Meclizine. 10. Melatonin. 11. Metoprolol. 12. Rivaroxaban 20 mg p.o. daily. 13. Topamax 100 mg by mouth twice daily. PHYSICAL EXAMINATION: Vitals: Temperature of 98.4, pulse of 56, respiratory rate of 14, oxygen saturation 99%, blood pressure 136/84. General: Well- nourished, poorly hygienic man, in no acute distress. He is chronically ill. He is obese. Head is normocephalic, atraumatic. Eyes: Conjunctivae/corneas are clear with no scleral icterus. Neck is supple and symmetrical with no carotid bruits. Neurological Examination: The patient is awake and alert to person, place, and time. He is aware of general circumstances. He has psychomotor slowing and dysarthria. Normal confrontation bilaterally. No facial asymmetry. No abnormal movement or pronator drift, but he does have mild long tract pyramidal weakness on the right upper and lower extremities. This is not new. He walks with a walker. ASSESSMENT AND RECOMMENDATION: Mr. 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 He has residual right hemiparesis. The patient had an episode of questionable syncope/convulsive syncope that resolved. He also had another episode last night where he had what sounds like stress-induced anxiety and lightheadedness. The patient was able to ambulate with me today without any assistance other than using a walker. He feels well and would like to go back to his nursing facility. He informed me today about his significant other at the nursing facility that he would like to see. He is still upset and slightly down regarding his situation with his and how she placed the court order against him. He denied any suicidal or homicidal ideation. He denied any lightheadedness or dizziness today. Overall, the episodes of near syncope/syncope is not related to seizures given the fact that he has preceding symptoms of diaphoresis although he never had positive orthostatic vitals. The orthostatic vitals were checked after he was given IV fluids. In addition, large component of symptoms may also be psychosomatic or functional in etiology given his recent stressors undergoing divorce with his . The patient does have a history of multifocal infarct, cerebral infarctions. He is currently on Xarelto. I do not see the indication of Plavix in combination with the Xarelto as this can significantly increase the risk of intracerebral hemorrhage or extracerebral hemorrhage. Therefore, I discontinued his Plavix and started him on low-dose aspirin 81 mg daily. Please check the indication for aspirin therapy which he most likely is taking for the cardiovascular risk factor as from the neurology standpoint, anticoagulation therapy with Xarelto is enough. He is also taking statin therapy. He is on Topamax 100 mg twice daily for migraine headaches. I also discontinued the ethosuximide and did not restart his levetiracetam as I do not suspect these episodes are related to a seizure phenomenon. Plus, levetiracetam will worsen his underlying mood disorder. The patient continued to decline psychiatric evaluation. It is important to establish care with a mental health specialist as an outpatient as well as follow up with us in the neurology clinic in 4-6 weeks. Someone, we will contact him with an appointment. 1. Suspect convulsive syncope. 2. Psychogenic non-epileptic activity. 3. History of left MCA and pontine infarction. TIME SPENT: I spent a total of 25 minutes of which greater than 50% was spent directly reviewing the medical chart, examining the patient, education and counseling, and discussing the treatment plan with the primary team as well as the patient. I will sign off. [id number]/[facility] #: [id number]
[2018-02-19] MEDS ORDERED: Aspirin 81 mg CHEW TAB* 81 MG TAB.CHEW PO SCH (09:00)
--- NOTE | 2018-02-21 03:49 | DS ---
CC: Dr. Pillai * DISCHARGE SUMMARY: DATE OF ADMISSION: 02/16/18 DATE OF DISCHARGE: 02/18/18 PRIMARY CARE PROVIDER: Dr. Pillai. ATTENDING FOR THIS ADMISSION: Dr. Monge. MY ATTENDING FOR TODAY: Dr. Sherron Love.* (DICTATED BY JOSE MANUEL RUST NP) HOSPITAL COURSE: This is a 62-year-old male patient with a complicated medical history including PE, DVT, atrial fibrillation, hypertension, CVA, CKD, coronary artery disease, GERD, PTSD, and depression. The patient was brought to the emergency department, after residing at [facility], for some spinning dizziness that he was having. The patient's symptoms were associated with some sweating. There was some question of whether he had new focal neuro deficits, but he denied any other symptoms at that time. The patient was admitted to observation to rule out vertigo versus additional CVA. The patient underwent CT scan, which was negative. MRI of the brain, which was also negative for any new findings. He passed his swallow evaluation. He was treated with some meclizine, which did not quite help and was also seen by Neurology. Also, of significant note, the patient was admitted on 02/02/18 for essentially the same symptoms that he was presenting with today. Dr. Wolff from Neurology saw the patient and interpreted his EEG and MRI. EEG showed no acute epileptiform changes and MRI showed no acute infarct. Part of the issue with the patient's presentation as he had this kind of seizure, syncope- type response while he was lying in the bed, which alerted the nurses to call a CAT team assessment on 02/16/18. Again, the patient stated similar symptoms as he did at admission where he sat up, he got dizzy, and he looked almost postictal at that point. Dr. Wolff evaluated him during the episode, obtained EEG again which was negative and also noted that previously in his chart, he had seen Dr. Abraham in the past and 2 or 3 other neurologists as he did have history of previous strokes; however, the issue now seems to be more pseudoseizure and PTSD related. The patient does have history significant for PTSD and depression and it would seem that his symptoms would start and then he would start mumbling words like [place] and other things during these episodes. However, he never actually lost consciousness and his workup for the past few months for these similar symptoms has always been negative. At this point, Neurology signed off on the patient on 02/18/18, adjusted his medications. He is already on Topamax , that if he did have some seizure disorder that was not caught, the Topamax, because he has had almost maximum dose for migraine prophylaxis, would definitely cover him for any kind of seizure activity. We removed him off his Plavix because he is on Xarelto for his DVT and also Neurology recommended taking him off ethosuximide as well given his symptoms. Also, of significant note, the patient was not orthostatic. His vital signs remained stable. Throughout each of these episodes, he did not have any desaturations or alterations in hemodynamics. DISCHARGE DIAGNOSES: 1. Syncope, likely related to pseudoseizures, stress, and posttraumatic stress disorder. 2. History of encephalomalacia secondary to old cerebrovascular accident. 3. History of cerebrovascular accident with no new pathology and persistent residual aphasia at baseline. 4. History of deep venous thrombosis, on Xarelto. 5. Chronic kidney disease, stage 3, at baseline. 6. Hypertension, blood pressure stable. DISCHARGE MEDICATIONS: Include: 1. Trazodone 50 mg at bedtime. 2. Topiramate 100 mg 3 times a day. 3. Simvastatin 40 mg at bedtime. 4. Xarelto 20 mg daily. 5. 20 mEq daily. 6. Nitroglycerin 0.5 mg sublingual as needed. 7. Multivitamin 1 tablet daily. 8. Metoprolol tartrate 25 mg 2 times a day. 9. Meclizine 12.5 mg 2 times a day as needed. 10. Gabapentin 100 mg 3 times a day. 11. Pepcid 20 mg 2 times a day. 12. Vitamin B12 500 mcg daily. 13. Debrox 1 drop both ears 2 times a day. 14. Capsaicin 0.1% topical 3 times a day as needed. 15. Calcium carbonate chews 1000 mg p.o. q.6 hours as needed. 16. Tylenol 650 mg q.4 hours as needed. REVIEW OF SYSTEMS: On the day of discharge, the patient has no acute complaints. States he is feeling well. Denies any fever, fatigue, or chills. No headache, no dizziness. No chest pain, no shortness of breath. No nausea, no vomiting. No urinary complaints and no further constitutional complaints. PHYSICAL EXAMINATION: The patient is alert. Speech is slow, but he is well appearing and in no acute distress. Vital signs are blood pressure 136/84, heart rate 56, respiratory rate is 14, O2 saturation 99% on room air with a temperature of 98.4. HEENT: The patient is atraumatic, normocephalic. PERRLA with nonicteric sclerae. Oral mucosa is moist. Tongue is midline. Neck is supple, nontender. No JVD noted and no carotid bruits auscultated. Cardiovascular: S1, S2 present. No murmurs, gallops, or rubs noted. Rate and rhythm are irregular. Lungs are clear bilaterally to auscultation with no wheezing, rhonchi, or rales. Abdomen is soft, nontender, and nondistended. Positive bowel sounds in all 4 quadrants. is deferred. Musculoskeletal: There is no clubbing, no cyanosis, and no edema. He has a baseline right-sided deficit with right raw sampler and right leg being slightly weaker than the left with no acute change. Neurologic: He is grossly intact with no new focalities. Psychiatric: He is cooperative and appropriate. DIAGNOSTIC STUDIES/LAB DATA: WBCs 4.6, RBCs 4.36, hemoglobin 12.9, hematocrit 39, platelets 186. Sodium 141, potassium 3.8, chloride 113, CO2 of 22, BUN 15, creatinine 1.27, GFR is 69.8, glucose 120, lactic acid 0.5, calcium 9.0. Bilirubin 0.50, AST 10, ALT 8, alk phos 90. Troponins were negative at 0.00, 0.01. Ammonia level was 56. Imaging: MRA dated 02/16/18 shows no aneurysm, no vascular malformation, no occlusion or stenosis of the visualized intracranial circulation. Brain MRI also dated 02/16/18 shows: 1. Extensive white matter disease consistent with chronic small vessel ischemia , left temporoparietal encephalomalacia consistent with remote stroke, and multiple chronic lacunar infarcts of the cerebral hemispheres bilaterally. 2. No restricted diffusion to suggest acute infarct. EEG negative for any epileptiform changes. CTA of the chest, abdomen, and pelvis also dated 02/16/18 shows mild atherosclerotic changes in the aorta with no evidence for dissection, no evidence for pulmonary embolism. He does have some coronary artery calcifications, cholelithiasis, and a 2.5-cm thyroid nodule, which recommends followup as an outpatient for thyroid ultrasound for further evaluation. DISPOSITION: The patient will be discharged back to [facility] today. He has been cleared by Neurology. Medications have been adjusted. The patient understands his discharge plan. MEDICATIONS: As above. DIET: Heart healthy as tolerated. ACTIVITY: Physical therapy and ad ryder as tolerated. CODE STATUS: The patient is a full code. The patient was discharged in stable condition. All questions were answered. The patient stated his understanding of his discharge instructions, medications , and followups. FOLLOWUPS: He was instructed to follow up with his primary care, Dr. Pillai, within 1 to 2 weeks after discharge from rehab. JOSE MANUEL RUST NP [id number]/[facility] #: [id number] DANA
== END 2018-02-18 16:30 | DRG 880 ==
LOC: ED 15:14 → MEDTELE 20:22 → OBSVTOIN 02-18 07:50 → INTOOBSV 02-18 07:50
PROVIDERS: ADMIT Hospitalist; ATTEND Internal Medicine
PROC: 4A00X4Z Measurement of Central Nervous Electrical Activity, External Approach (ICD-10-PCS; principal; 2018-02-18)
DX: F44.5 Conversion disorder with seizures or convulsions (principal); I69.151 Hemiplegia and hemiparesis following nontraumatic intracerebral hemorrhage affecting right dominant side; F43.10 Post-traumatic stress disorder, unspecified; F43.9 Reaction to severe stress, unspecified; R55 Syncope and collapse; I25.10 Atherosclerotic heart disease of native coronary artery without angina pectoris; K21.9 Gastro-esophageal reflux disease without esophagitis; F41.9 Anxiety disorder, unspecified; F32.9 Major depressive disorder, single episode, unspecified; I12.9 Hypertensive chronic kidney disease with stage 1 through stage 4 chronic kidney disease, or unspecified chronic kidney disease; N18.3 Chronic kidney disease, stage 3 (moderate); G93.89 Other specified disorders of brain; K80.20 Calculus of gallbladder without cholecystitis without obstruction; E04.1 Nontoxic single thyroid nodule; E78.5 Hyperlipidemia, unspecified; I48.0 Paroxysmal atrial fibrillation; G43.909 Migraine, unspecified, not intractable, without status migrainosus; E66.9 Obesity, unspecified; Z86.711 Personal history of pulmonary embolism; Z88.5 Allergy status to narcotic agent; Z91.5 Personal history of self-harm; Z82.49 Family history of ischemic heart disease and other diseases of the circulatory system; Z86.718 Personal history of other venous thrombosis and embolism; Z68.36 Body mass index [BMI] 36.0-36.9, adult; Z83.3 Family history of diabetes mellitus; Z82.3 Family history of stroke; I69.120 Aphasia following nontraumatic intracerebral hemorrhage
CPT/HCPCS: 36415; 70450; 70544; 70547; 70551; 71045; 71275; 74174; 80053; 82140; 83605; 84484; 85025; 93005; 95819; 99284; A9270-GY; G0378; Q9967

== ENCOUNTER 2018-12-16 14:09 | Emergency (ER) | payer MEDICARE, MEDICAID ==
--- NOTE | 2018-12-16 14:25 | ED ---
Neurological HPI - HPI Summary HPI Summary: A 63 y/o male brought in by [facility] ambulance presents to [facility] with a chief complaint of multiple seizures in the past 12 hours. The patient also c/o urinary incontinence. He was given Versed en route. The patient denies any medication changes and was taking Topamax. The patient denies fever, chills, erythema of eyes, sore throat, CP, SOB, cough, abdominal pain, N/V, dysuria, hematuria, myalgia, edema, rash, or dizziness. - History of Current Complaint Stated Complaint: SEIZURE PER EMS Time Seen by Provider: 12/16/18 14:16 Hx Obtained From: Patient, EMS Onset/Duration: Sudden Onset, Started hours ago, Still Present Timing: Intermittent Episodes Lasting: - multiple seizures over 12 hours Onset Severity: Moderate Current Severity: Moderate Neurological Deficit Location: Generalized Character: Unable To Describe Aggravating: Nothing Alleviating: Nothing Associated Signs and Symptoms: Negative: Fever, Diarrhea, Chest Pain - Additional Pertinent History Primary Care Physician: [id number] - Allergy/Home Medications Allergies/Adverse Reactions: Allergies Allergy/AdvReac Type Severity Reaction Status Date / Time oxycodone Allergy Unknown Verified 12/16/18 14:31 Reaction Details Home Medications: Home Medications Clopidogrel TAB* [Plavix TAB*] 75 mg PO DAILY 12/16/18 [History Confirmed ] Ethosuximide CAP* [Zarontin CAP*] 500 mg PO QAM 12/16/18 [History Confirmed ] Famotidine TAB* [Pepcid 20 MG TAB*] 20 mg PO BID 12/16/18 [History Confirmed ] Isosorbide Mononitrate ER TAB* [Imdur ER TAB*] 30 mg PO DAILY 12/16/18 [History Confirmed 12/16/18] Mineral Oil [Mineral Oil Heavy] 3 drop BOTH EARS BEDTIME 12/16/18 [History Confirmed 12/16/18] PMH/Surg Hx/FS Hx/Imm Hx Endocrine/Hematology History: Reports: Hx Anticoagulant Therapy Denies: Hx Diabetes Cardiovascular History: Reports: Hx Angina, Hx Coronary Artery Disease, Hx Embolism - PE, Hx Hypertension Denies: Hx Cardiac Arrest, Hx Cardiomegaly, Hx Congenital Heart Disease, Hx Pacemaker/ICD Respiratory History: Reports: Hx Pulmonary Embolism GI History: Reports: Hx Gastroesophageal Reflux Disease History: Reports: Other Problems/Disorders - Frequent urination, undiagnosed. Denies: Hx Renal Disease Musculoskeletal History: Reports: Other Musculoskeletal History - Left knee surgery. 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 LOOP RECORDER. LEFT FOREARM - Immunization History Date of Tetanus Vaccine: UTD Date of Influenza Vaccine: UTD Infectious Disease History: Denies: Hx Clostridium Difficile, Hx Hepatitis, Hx Human Immunodeficiency Virus (HIV), Hx of Known/Suspected MRSA, Hx Shingles, Hx Tuberculosis, Hx Known/ Suspected VRE, Hx Known/Suspected VRSA, History Other Infectious Disease - Family History Known Family History: Positive: Cardiac Disease - mother and father Negative: Diabetes - Social History Alcohol Use: None Hx Substance Use: No Substance Use Type: Reports: None Hx Tobacco Use: No Smoking Status (MU): Never Smoked Tobacco Have You Smoked in the Last Year: No Review of Systems Negative: Fever, Chills Negative: Erythema Negative: Sore Throat Negative: Chest Pain Negative: Shortness Of Breath, Cough Negative: Abdominal Pain, Vomiting, Nausea Negative: dysuria, hematuria Negative: Myalgia, Edema Negative: Rash Neurological: Negative - dizziness, Other - positive: multiple seizures over the last 12 hours All Other Systems Reviewed And Are Negative: Yes Physical Exam - Summary Physical Exam Summary: Constitutional: Well-developed, Well-nourished, Alert. (-) Distressed Skin: Warm, Dry HENT: Normocephalic; Atraumatic Eyes: Conjunctiva normal Neck: Musculoskeletal ROM normal neck. (-) JVD, (-) Stridor, (-) Tracheal deviation Cardio: Rhythm regular, rate normal, Heart sounds normal; Intact distal pulses; The pedal pulses are 2+ and symmetric. Radial pulses are 2+ and symmetric. (-) Murmur Pulmonary/Chest wall: Effort normal. (-) Respiratory distress, (-) Wheezes, (-) Rales Abd: Soft, (-) tenderness, (-) Distension, (-) Guarding, (-) Rebound Musculoskeletal: (-) Edema Lymph: (-) Cervical adenopathy Neuro: postictal when first arrived Psych: Mood and affect Normal Triage Information Reviewed: Yes Vital Signs Reviewed: Yes - [place] Coma Scale Best Eye Response: 4 - Spontaneous Best Motor Response: 6 - Obeys Commands Best Verbal Response: 5 - Oriented Coma Scale Total: 15 Diagnostics - Laboratory Result Diagrams: 12/16/18 14:26 12/16/18 14:26 Lab Statement: Any lab studies that have been ordered have been reviewed, and results considered in the medical decision making process. - CT Brain CT Interpretation Completed By: Radiologist Summary of CT Findings: 1. NO EVIDENCE FOR ACUTE INTRACRANIAL ABNORMALITY. 2. OLD LEFT MIDDLE CEREBRAL ARTERY INFARCT AND MULTIPLE ADDITIONAL SMALLER LACUNAR. INFARCTS. ED physician has reviewed this imaging report. - EKG 14:45 Cardiac Rate: NL - 66 bpm EKG Rhythm: Sinus Rhythm Summary of EKG Findings: NSR at 66 bpm, no STEMI. Re-Evaluation - Re-Evaluation First Eval Re-Evaluation Time: 18:35 Change: Unchanged Comment: Pt reports that right ear has been bothering him for a month. He denies any ear infections or hearing loss. Upon exam Pt had an erythematous right TM. Course/Dx - Course Course Of Treatment: A 63 y/o male brought in by [facility] ambulance presents to [facility] with a chief complaint of multiple seizures in the past 12 hours. The physical exam revealed that the patient was postictal when he first arrived. In the ED course the patient was given Lopressor PO and Topamax PO. EKG showed NSR at 66 bpm, no STEMI. Bloodwork and chemistries obtained and are WNL. Brain CT impression: 1. NO EVIDENCE FOR ACUTE INTRACRANIAL ABNORMALITY. 2. OLD LEFT MIDDLE CEREBRAL ARTERY INFARCT AND MULTIPLE ADDITIONAL SMALLER LACUNAR. INFARCTS. Discussed case with Dr. Abraham, neurologist, who recommended 150mg of Topamax at night. The patient will be discharged with prescriptions for Topamax and Amoxicillin and will follow up with his PCP. The patient is agreeable with this plan. - Diagnoses Provider Diagnoses: Breakthrough seizure, Right otitis media - Physician Notifications Discussed Care Of Patient With: Juan Carlos Abraham Time Discussed With Above Provider: 18:39 Instructed by Provider To: Other - recommended 150mg of Topamax at night Discharge - Sign-Out/Discharge Documenting (check all that apply): Patient Departure - DC Patient Received Moderate/Deep Sedation with Procedure: No - Discharge Plan Condition: Stable Disposition: HOME Prescriptions: Amoxicillin PO (*) [Amoxicillin 875 MG (*)] 875 mg PO BID #14 tab Topiramate TAB(*) [Topamax 100 mg tab] 100 mg PO BID #30 tab Patient Education Materials: Recurrent Seizures in Adults (ED) Referrals: Luigi Pillai MD [Primary Care Provider] - Additional Instructions: We are increasing your Topamax to 150 mg at night. RETURN TO THE EMERGENCY DEPARTMENT FOR CHANGING OR WORSENING SYMPTOMS - Billing Disposition and Condition Condition: STABLE Disposition: Home - Attestation Statements Document Initiated by Scribe: Yes Documenting Scribe: Rasheed Mart Provider For Whom Scribe is Documenting (Include Credential): Andrew Heni MD Scribe Attestation: Rasheed Chaudhry scribed for Andrew Hein MD on 12/22/18 at 1254. Scribe Documentation Reviewed: Yes Provider Attestation: The documentation as recorded by the Rasheed heart accurately reflects the service I personally performed and the decisions made by Andrew dooley MD Status of Scribe Document: Viewed
[2018-12-16 14:43] LABS: ABS Basophils 0.1 10^3/ul (0-0.2); ABS Eosinophils 0.2 10^3/ul (0-0.6); ABS Lymphocytes 1.6 10^3/ul (1.0-4.8); ABS Monocytes 0.6 10^3/ul (0-0.8); ABS Neutrophils 3.4 10^3/ul (1.5-7.7); Eosinophil % 2.6 %; Hematocrit 41 % (42-52); Hemoglobin 13.9 g/dL (14.0-18.0); Lymphocyte % 27.5 %; Mean Corpuscular HGB Conc 34 g/dL (31-36); Mean Corpuscular Hemoglobin 30 pg (27-31); Mean Corpuscular Volume 88 fL (80-94); Mean Platelet Volume 8.9 fL (7.4-10.4); Nucleated Red Blood Cells % 0.1; Platelet Count 175 10^3/uL (150-450); Red Cell Distribution Width 14 % (10.5-15); White Blood Count 5.8 10^3/uL (3.5-10.8)
[2018-12-16 14:46] LABS: INR 1.04 (0.82-1.09)
[2018-12-16 14:53] LABS: Albumin 3.8 g/dL (3.2-5.2); Albumin/Globulin Ratio 1.4 (1-3); BUN/Creatinine Ratio 12.8 (8-20); EGFR African American 61.6 (>60); EGFR Non-African American 50.9 (>60); Globulin 2.7 g/dL (2-4); Magnesium 2.2 mg/dL (1.9-2.7); Total Bilirubin 0.5 mg/dL (0.2-1.0); Total Protein 6.5 g/dL (6.4-8.9)
[2018-12-16 17:55] LABS: Urine Appearance Turbid; Urine Bacteria Absent (Absent); Urine Bilirubin Negative (Negative); Urine Blood Negative (Negative); Urine Color Amber; Urine Glucose Negative (Negative); Urine Ketones Trace (Negative); Urine Nitrite Negative (Negative); Urine Protein Negative (Negative); Urine Red Blood Cell Absent (Absent); Urine Specific Gravity 1.018 (1.010-1.030); Urine Squamous Epithelial Cell Present (Absent); Urine Urobilinogen Negative (Negative); Urine White Blood Cell Trace(0-5/hpf) (Absent)
[2018-12-16] MEDS ORDERED: Topiramate TAB(*) 100 MG PO ONE (18:46)
[2018-12-16] MEDS ORDERED: Metoprolol Tartrate TAB* 25 MG PO ONE (18:54)
[2018-12-16 19:10] VITALS: BP 180/111
== END 2018-12-16 19:09 | disposition home or self-care (01) ==
LOC: ED 14:09
DX: G40.909 Epilepsy, unspecified, not intractable, without status epilepticus (principal); H66.91 Otitis media, unspecified, right ear; R32 Unspecified urinary incontinence; I25.10 Atherosclerotic heart disease of native coronary artery without angina pectoris; I10 Essential (primary) hypertension; K21.9 Gastro-esophageal reflux disease without esophagitis; Z79.01 Long term (current) use of anticoagulants; Z86.73 Personal history of transient ischemic attack (TIA), and cerebral infarction without residual deficits; Z88.5 Allergy status to narcotic agent
CPT/HCPCS: 36415; 70450; 80053; 80201; 81003; 81015; 83605; 83735; 85025; 85610; 87086; 93005; 99285; A9270-GY

== ENCOUNTER 2019-03-13 18:34 | Emergency (ER) | payer MEDICARE, MEDICAID ==
--- NOTE | 2019-03-13 18:51 | ED ---
HPI Chest Pain - HPI Summary HPI Summary: This patient is a 63 year old M presenting to [facility] with a chief complaint of chest pain beginning today evening. Pt reports at 17:30 he choked on carrots. Pt has a PMHx of 7 strokes. Symptoms alleviated by nitroglycerin and aspirin. Per triage, the patient rates the pain 5/10 in severity. Patient reports feeling as if he is choking, and abdominal pain (beginning a couple weeks ago). Patient denies SOB. - History of Current Complaint Chief Complaint: EDChestPainROMI Time Seen by Provider: 03/13/19 18:42 Hx Obtained From: Patient Onset/Duration: Started Minutes Ago Time of Onset: 17:30 Timing: Constant Initial Severity: Moderate Current Severity: Moderate Pain Intensity: 5 Pain Scale Used: 0-10 Numeric Chest Pain Radiates: Yes Chest Pain Radiates To:: Epigastric Alleviating Factor(s): Medication, NTG 123 Associated Signs and Symptoms: Positive: Abdominal Pain. Negative: Shortness of Breath - Additional Pertinent History Primary Care Physician: HANSEL - Allergy/Home Medications Allergies/Adverse Reactions: Allergies Allergy/AdvReac Type Severity Reaction Status Date / Time oxycodone Allergy Unknown Verified 12/16/18 14:31 Reaction Details PMH/Surg Hx/FS Hx/Imm Hx Endocrine/Hematology History: Reports: Hx Anticoagulant Therapy Denies: Hx Diabetes Cardiovascular History: Reports: Hx Angina, Hx Coronary Artery Disease, Hx Embolism - PE, Hx Hypertension Denies: Hx Cardiac Arrest, Hx Cardiomegaly, Hx Congenital Heart Disease, Hx Pacemaker/ICD Respiratory History: Reports: Hx Pulmonary Embolism GI History: Reports: Hx Gastroesophageal Reflux Disease History: Reports: Other Problems/Disorders - Frequent urination, undiagnosed. Denies: Hx Renal Disease Musculoskeletal History: Reports: Other Musculoskeletal History - Left knee surgery. 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 LOOP RECORDER. LEFT FOREARM - Immunization History Date of Tetanus Vaccine: UTD Date of Influenza Vaccine: UTD Infectious Disease History: Denies: Hx Clostridium Difficile, Hx Hepatitis, Hx Human Immunodeficiency Virus (HIV), Hx of Known/Suspected MRSA, Hx Shingles, Hx Tuberculosis, Hx Known/ Suspected VRE, Hx Known/Suspected VRSA, History Other Infectious Disease - Family History Known Family History: Positive: Cardiac Disease - mother and father Negative: Diabetes - Social History Alcohol Use: None Hx Substance Use: No Substance Use Type: Reports: None Hx Tobacco Use: No Smoking Status (MU): Never Smoked Tobacco Have You Smoked in the Last Year: No Review of Systems Positive: Chest Pain Negative: Shortness Of Breath Positive: Abdominal Pain All Other Systems Reviewed And Are Negative: Yes Physical Exam - Summary Physical Exam Summary: Appearance: The patient is well-nourished in no acute distress and in no acute pain. Skin: The skin is warm and dry and skin color reflects adequate perfusion. HEENT: The head is normocephalic and atraumatic. The pupils are equal and reactive. The conjunctivae are clear and without drainage. Nares are patent and without drainage. Mouth reveals moist mucous membranes and the throat is without erythema and exudate. The external ears are intact. The ear canals are patent and without drainage. The tympanic membranes are intact. Neck: The neck is supple with full range of motion and non-tender. There are no carotid bruits. There is no neck vein distension. Respiratory: Chest is non-tender. Lungs are clear to auscultation and breath sounds are symmetrical and equal. Cardiovascular: Heart is regular rate and rhythm. There is no murmur or rub auscultated. There is no peripheral edema and pulses are symmetrical and equal. Abdomen: The abdomen is soft. There are normal bowel sounds heard in all four quadrants and there is no organomegaly palpated. Tender epigastrium Musculoskeletal: There is no back tenderness noted. Extremities are non-tender with full range of motion. There is good capillary refill. There is no peripheral edema or calf tenderness elicited. Neurological: Patient is alert and oriented to person, place and time. The patient has symmetrical motor strength in all four extremities. Cranial nerves are grossly intact. Deep tendon reflexes are symmetrical and equal in all four extremities. Psychiatric: The patient has an appropriate affect and does not exhibit any anxiety or depression. Triage Information Reviewed: Yes Vital Signs On Initial Exam: Initial Vital Signs Temp 98.3 F 03/13/19 18:38 Pulse 82 03/13/19 18:38 Resp 18 03/13/19 18:38 BP 176/136 03/13/19 18:38 Pulse Ox 98 03/13/19 18:38 Vital Signs Reviewed: Yes Diagnostics - Laboratory Result Diagrams: 03/13/19 19:03 03/13/19 19:03 Lab Statement: Any lab studies that have been ordered have been reviewed, and results considered in the medical decision making process. - Radiology CXR Radiology Interpretation Completed By: ED Physician Summary of Radiographic Findings: CXR reveals, per ED physician,. Pending official radiology report. - EKG 18:36 Cardiac Rate: NL - 84 bpm EKG Rhythm: Sinus Rhythm Summary of EKG Findings: An EKG at 18:36 reveals normal sinus rhythm 84 bpm; left axis deviation. Re-Evaluation - Re-Evaluation First Eval Re-Evaluation Time: 21:12 Comment: Checked on pt. Chest Pain Course/Dx - Course Course Of Treatment: Mr. Fay was having dinner when he began to choke. That has resolved but he developed chest pain and the ambulance was called. He was given 2 nitroglycerin at [facility] and an additional 1 with an aspirin in the ambulance. He still says he has "a little bit" of pain. He is nontoxic in appearance with stable vitals on arrival. EKG was unremarkable as was chest x- ray. His initial troponin is 0 and he is awaiting a second troponin at 2300. - Diagnoses Provider Diagnoses: Chest pain Discharge - Sign-Out/Discharge Documenting (check all that apply): Sign-Out Patient Signing out patient TO: Darren Segal Receiving patient FROM: Ranulfo Armenta Patient Received Moderate/Deep Sedation with Procedure: No - Discharge Plan Condition: Stable Referrals: Luigi Pillai MD [Primary Care Provider] - - Billing Disposition and Condition Condition: STABLE - Attestation Statements Document Initiated by Scribe: Yes Documenting Scribe: Courtney Tripp Provider For Whom Scribe is Documenting (Include Credential): Dr. Ranulfo Armenta MD Scribe Attestation: Courtney Chaudhry scribed for Dr. Ranulfo Armenta MD on 03/13/19 at 2133. Scribe Documentation Reviewed: Yes Provider Attestation: The documentation as recorded by the winifredibe, Courtney Tripp accurately reflects the service I personally performed and the decisions made by me, Dr. Ranulfo Armenta MD Status of Scribe Document: Viewed
[2019-03-13 19:14] LABS: ABS Basophils 0.1 10^3/ul (0-0.2); ABS Eosinophils 0.2 10^3/ul (0-0.6); ABS Lymphocytes 1.9 10^3/ul (1.0-4.8); ABS Monocytes 0.9 10^3/ul (0-0.8); ABS Neutrophils 4.5 10^3/ul (1.5-7.7); Eosinophil % 3.2 %; Hematocrit 42 % (42-52); Hemoglobin 14.3 g/dL (14.0-18.0); Lymphocyte % 24.5 %; Mean Corpuscular HGB Conc 34 g/dL (31-36); Mean Corpuscular Hemoglobin 30 pg (27-31); Mean Corpuscular Volume 87 fL (80-94); Mean Platelet Volume 8.9 fL (7.4-10.4); Platelet Count 175 10^3/uL (150-450); Red Blood Count 4.84 10^6 /uL (4.18-5.48); Red Cell Distribution Width 14 % (10-15); White Blood Count 7.7 10^3/uL (3.5-10.8)
[2019-03-13 19:17] LABS: INR 1.05 (0.82-1.09)
[2019-03-13 19:31] LABS: Albumin 3.8 g/dL (3.2-5.2); Albumin/Globulin Ratio 1.3 (1-3); BUN/Creatinine Ratio 12.9 (8-20); Calcium 9.3 mg/dL (8.6-10.3); EGFR African American 49.3 (>60); EGFR Non-African American 40.8 (>60); Globulin 2.9 g/dL (2-4); Potassium 4.1 mmol/L (3.5-5.0); Total Bilirubin 0.4 mg/dL (0.2-1.0); Total Protein 6.7 g/dL (6.4-8.9)
[2019-03-13] MEDS ORDERED: Pantoprazole IV* 40 MG IV ONE (21:37)
[2019-03-13] MEDS ORDERED: Sucralfate TAB* 1 GM PO ONE (21:37)
--- NOTE | 2019-03-13 22:36 | ED ---
Progress - Progress Note Progress Note: Pt is a signout from Dr. Armenta at 2200 on 03/13/19 pending repeat troponin. Re-Evaluation - Re-Evaluation First Eval Re-Evaluation Time: 21:12 Comment: Checked on pt. Course/Dx - Course Course Of Treatment: Pt is a signout from Dr. Armenta at 2200 on 03/13/19 pending repeat troponin. His second troponin is negative, and he is stable and agreeable with a plan of discharge. - Diagnoses Provider Diagnoses: Chest pain Discharge - Sign-Out/Discharge Documenting (check all that apply): Patient Departure, Receiving Sign-Out Receiving patient FROM: Ranulfo Armenta Patient Received Moderate/Deep Sedation with Procedure: No - Discharge Plan Condition: Good Disposition: HOME Patient Education Materials: Chest Pain (ED) Referrals: Luigi Pillai MD [Primary Care Provider] - - Billing Disposition and Condition Condition: GOOD Disposition: Home - Attestation Statements Document Initiated by Scribe: Yes Documenting Scribe: Zee Brandt Provider For Whom Zara is Documenting (Include Credential): Darern Segal MD. Scribe Attestation: Zee Chaudhry, winifredibed for Darren Segal MD. on 03/14/19 at 0505. Scribe Documentation Reviewed: Yes Provider Attestation: The documentation as recorded by the Zee heart accurately reflects the service I personally performed and the decisions made by , Darren Segal MD. Status of Scribe Document: Viewed
[2019-03-14 00:07] VITALS: BP 170/117
== END 2019-03-14 00:06 | disposition home or self-care (01) ==
LOC: ED 18:34
DX: R07.9 Chest pain, unspecified (principal); I25.119 Atherosclerotic heart disease of native coronary artery with unspecified angina pectoris; I10 Essential (primary) hypertension; K21.9 Gastro-esophageal reflux disease without esophagitis; F41.9 Anxiety disorder, unspecified; F32.9 Major depressive disorder, single episode, unspecified; Z88.5 Allergy status to narcotic agent; Z79.82 Long term (current) use of aspirin; Z79.899 Other long term (current) drug therapy
CPT/HCPCS: 36415; 71046; 80053; 83605; 83880; 84484; 85025; 85610; 93005; 96374; 99284; A9270-GY

== ENCOUNTER 2019-04-04 14:02 | Emergency (ER) | payer MEDICARE, MEDICAID ==
[2019-04-04] MEDS ORDERED: Pantoprazole IV* 40 MG IV ONE (14:31)
--- NOTE | 2019-04-04 14:31 | ED ---
Abdominal Pain/Male - HPI Summary HPI Summary: This patient is a 63 year old M presenting to [facility] by EMS with a chief complaint of abdominal pain since couple of weeks ago. Per triage, the patient rates the pain 9/10 in severity. Patient reports fever, vomiting (looked like dark coffee, began 04/02/19), normal BM, pain and blood in urine. Patient denies diarrhea, and constipation. Pt has not previously had symptoms like this. Pt was told he had a kidney stone. Pt does not smoke, drink, or use drugs. Medications reviewed. Allergies noted - History of Current Complaint Chief Complaint: EDAbdPain Stated Complaint: ABDOMINAL PAIN PER EMS Time Seen by Provider: 04/04/19 14:20 Hx Obtained From: Patient Onset/Duration: Lasting Weeks, Still Present Timing: Constant, Lasting Weeks Severity Initially: Severe Severity Currently: Severe Pain Intensity: 9 Pain Scale Used: 0-10 Numeric Location: Discrete At: LUQ Aggravating Factor(s): Nothing Alleviating Factor(s): Nothing Associated Signs And Symptoms: Positive: Fever, Urinary Symptoms, Vomiting. Negative: Constipation, Diarrhea - Allergies/Home Medications Allergies/Adverse Reactions: Allergies Allergy/AdvReac Type Severity Reaction Status Date / Time oxycodone Allergy Unknown Verified 12/16/18 14:31 Reaction Details Home Medications: Home Medications Topiramate TAB(*) [Topamax 100 mg tab] 100 mg PO QAM 04/04/19 [History Confirmed 04/04/19] Topiramate TAB(*) [Topamax 100 mg tab] 150 mg PO BEDTIME 04/04/19 [History Confirmed 04/04/19] PMH/Surg Hx/FS Hx/Imm Hx Endocrine/Hematology History: Reports: Hx Anticoagulant Therapy Denies: Hx Diabetes Cardiovascular History: Reports: Hx Angina, Hx Coronary Artery Disease, Hx Embolism - PE, Hx Hypertension Denies: Hx Cardiac Arrest, Hx Cardiomegaly, Hx Congenital Heart Disease, Hx Pacemaker/ICD Respiratory History: Reports: Hx Pulmonary Embolism GI History: Reports: Hx Gastroesophageal Reflux Disease History: Reports: Other Problems/Disorders - Frequent urination, undiagnosed. Denies: Hx Renal Disease Musculoskeletal History: Reports: Other Musculoskeletal History - Left knee surgery. 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 LOOP RECORDER. LEFT FOREARM - Immunization History Date of Tetanus Vaccine: UTD Date of Influenza Vaccine: UTD Infectious Disease History: No Infectious Disease History: Denies: Hx Clostridium Difficile, Hx Hepatitis, Hx Human Immunodeficiency Virus (HIV), Hx of Known/Suspected MRSA, Hx Shingles, Hx Tuberculosis, Hx Known/ Suspected VRE, Hx Known/Suspected VRSA, History Other Infectious Disease, Traveled Outside the [place] in Last 30 Days - Family History Known Family History: Positive: Cardiac Disease - mother and father Negative: Diabetes - Social History Alcohol Use: None Hx Substance Use: No Substance Use Type: Reports: None Hx Tobacco Use: No Smoking Status (MU): Never Smoked Tobacco Have You Smoked in the Last Year: No Review of Systems Positive: Fever Positive: Abdominal Pain, Vomiting, Nausea. Negative: Diarrhea, Other - Constipation Positive: hematuria, pain All Other Systems Reviewed And Are Negative: Yes Physical Exam - Summary Physical Exam Summary: Constitutional: Well-developed, Well-nourished, Alert. (-) Distressed Skin: Warm, Dry HENT: Normocephalic; Atraumatic Eyes: Conjunctiva normal Neck: Musculoskeletal ROM normal neck. (-) JVD, (-) Stridor, (-) Tracheal deviation Cardio: Rhythm regular, rate normal, Heart sounds normal; Intact distal pulses; The pedal pulses are 2+ and symmetric. Radial pulses are 2+ and symmetric. (-) Murmur Pulmonary/Chest wall: Effort normal. (-) Respiratory distress, (-) Wheezes, (-) Rales Abd: Soft, LUQ tenderness , (-) Distension, (-) Guarding, (-) Rebound Musculoskeletal: (-) Edema Lymph: (-) Cervical adenopathy Neuro: Alert, Oriented x3 Psych: Mood and affect Normal Triage Information Reviewed: Yes Vital Signs On Initial Exam: Initial Vitals Temp Pulse Resp BP Pulse Ox 98.5 F 99 16 132/96 96 04/04/19 14:13 04/04/19 14:13 04/04/19 14:13 04/04/19 14:13 04/04/19 14:13 Vital Signs Reviewed: Yes Diagnostics - Vital Signs Vital Signs Temp Pulse Resp BP Pulse Ox 04/04/19 14:13 98.5 F 99 16 132/96 96 - Laboratory Result Diagrams: 04/04/19 14:54 04/04/19 14:54 Lab Statement: Any lab studies that have been ordered have been reviewed, and results considered in the medical decision making process. - CT Abdomen/Pelvis CT CT Interpretation Completed By: Radiologist Summary of CT Findings: Abdomen/Pelvis CT reveals, per radiologist, IMPRESSION: 1. There is a small hiatal hernia and there appears to be mild wall thickening. in the distal esophagus, cannot exclude mild esophagitis. 2. Stable cholelithiasis without pericholecystic inflammatory change. 3. As previously seen, there is urinary bladder wall thickening and fat. stranding suspicious for possible cystitis. 4. Stable colonic diverticulosis without evidence for acute diverticulitis. ED physician has reviewed this radiology report. Re-Evaluation - Re-Evaluation First Eval Re-Evaluation Time: 19:29 Comment: Discussed results with pt. Abdominal Pain Male Course/Dx - Course Course Of Treatment: Patient is here with left upper quadrant pain and possible coffee-ground emesis. Patient had blood work performed which showed a normal hemoglobin but did have a mild leukocytosis and a CT scan was ordered. Patient had a CT scan which showed no acute abnormalities outside of possible cystitis. Patient's UA was dirty consistent with ear infection so patient's treated with an biotics. I do not believe patient is having massive GI bleeding with a normal hemoglobin and no episodes of vomiting here. - Diagnoses Provider Diagnoses: Left upper quadrant pain, UTI (urinary tract infection) Discharge ED - Sign-Out/Discharge Documenting (check all that apply): Patient Departure - Discharge Patient Received Moderate/Deep Sedation with Procedure: No - Discharge Plan Condition: Stable Disposition: HOME Prescriptions: Cephalexin CAP* [Keflex CAP*] 500 mg PO TID 7 Days #21 cap Patient Education Materials: Urinary Tract Infection in Men (ED), Abdominal Pain (ED) Referrals: Luigi Pillai MD [Primary Care Provider] - 3 Days Additional Instructions: PLEASE RETURN TO EMERGENCY DEPARTMENT FOR ANY NEW OR WORSENING SYMPTOMS, BLOOD IN STOOL. Please follow up with your primary care physician. Please make all follow-ups in 1-3 days unless I advise you otherwise. - Billing Disposition and Condition Condition: STABLE Disposition: Home - Attestation Statements Document Initiated by Zara: Yes Documenting Scribe: Courtney Tripp Provider For Whom Zara is Documenting (Include Credential): Celesitne Chao MD Scribe Attestation: Courtney Chaudhry, scribed for Celestine Chao MD on 04/04/19 at 2127. Scribe Documentation Reviewed: Yes Provider Attestation: The documentation as recorded by the winifredibe, Courtney Tripp accurately reflects the service I personally performed and the decisions made by me, Celestine Chao MD Status of Scribe Document: Viewed
[2019-04-04] MEDS ORDERED: NS 0.9% 1000 ML** 1,000 ML IV ONE (14:32)
[2019-04-04 15:01] LABS: Hematocrit 49 % (42-52); Hemoglobin 16.5 g/dL (14.0-18.0); Mean Corpuscular HGB Conc 34 g/dL (31-36); Mean Corpuscular Hemoglobin 29 pg (27-31); Mean Corpuscular Volume 87 fL (80-94); Mean Platelet Volume 8.9 fL (7.4-10.4); Platelet Count 197 10^3/uL (150-450); Red Blood Count 5.64 10^6 /uL (4.18-5.48); Red Cell Distribution Width 14 % (10-15); White Blood Count 15.6 10^3/uL (3.5-10.8)
[2019-04-04 15:49] LABS: Albumin 4.2 g/dL (3.2-5.2); Albumin/Globulin Ratio 1.3 (1-3); BUN/Creatinine Ratio 15.1 (8-20); Calcium 9.7 mg/dL (8.6-10.3); EGFR African American 44.8 (>60); Globulin 3.2 g/dL (2-4); Potassium 3.9 mmol/L (3.5-5.0); Total Protein 7.4 g/dL (6.4-8.9)
[2019-04-04 16:16] LABS: ABS Basophils 0.1 10^3/ul (0-0.2); ABS Lymphocytes 1.4 10^3/ul (1.0-4.8); ABS Monocytes 1.7 10^3/ul (0-0.8); ABS Neutrophils 12.4 10^3/ul (1.5-7.7); Eosinophil % 0.2 %; Lymphocyte % 8.7 %; Nucleated Red Blood Cells % 0.1
[2019-04-04] MEDS ORDERED: Iodixanol* (CONTRAST) 320 MG/ML 100 ML SDV IV ONE (16:32)
[2019-04-04] MEDS ORDERED: Ondansetron INJ* 2 MG/ML VIAL IV ONE (16:53)
[2019-04-04 18:56] LABS: Urine Appearance Cloudy; Urine Bacteria Absent (Absent); Urine Bilirubin Negative (Negative); Urine Blood 1+ (Negative); Urine Color Amber; Urine Glucose Negative (Negative); Urine Ketones Negative (Negative); Urine Nitrite Negative (Negative); Urine Protein 2+(100 mg/dL) (Negative); Urine Red Blood Cell 1+(3-5/hpf) (Absent); Urine Specific Gravity 1.024 (1.010-1.030); Urine Squamous Epithelial Cell Present (Absent); Urine Urobilinogen Negative (Negative); Urine White Blood Cell 3+(>20/hpf) (Absent)
[2019-04-04] MEDS ORDERED: Cephalexin CAP* 500 MG PO ONE (19:28)
[2019-04-04 20:04] VITALS: BP 169/126
--- NOTE | 2019-04-07 05:54 | PN ---
Progress Note - Progress Note Date of Service: 04/04/19 Note: Urine culture final Proteus Mirabilas Patient was placed on Keflex prior to discharge This is sensitive to organism Nothing further at this time
== END 2019-04-04 20:39 | disposition home or self-care (01) ==
LOC: ED 14:02
DX: N39.0 Urinary tract infection, site not specified (principal); B96.4 Proteus (mirabilis) (morganii) as the cause of diseases classified elsewhere; R31.9 Hematuria, unspecified; R10.12 Left upper quadrant pain; K44.9 Diaphragmatic hernia without obstruction or gangrene; K80.20 Calculus of gallbladder without cholecystitis without obstruction; R50.9 Fever, unspecified; I25.119 Atherosclerotic heart disease of native coronary artery with unspecified angina pectoris; I10 Essential (primary) hypertension; Z86.711 Personal history of pulmonary embolism; Z79.82 Long term (current) use of aspirin; R56.9 Unspecified convulsions; Z88.5 Allergy status to narcotic agent; K57.30 Diverticulosis of large intestine without perforation or abscess without bleeding; R11.2 Nausea with vomiting, unspecified
CPT/HCPCS: 36415; 74177; 80053; 81003; 81015; 83690; 85025; 85027; 86850; 86900; 86901; 87077; 87086; 87186; 96361; 96374; 96375; 99284; A9270-GY; J2405; Q9967